=== PATIENT | female | born 1935 | race Caucasian/White ===

== ENCOUNTER 2016-08-04 19:27 | Inpatient (IN) ==
--- NOTE | 2016-08-04 19:48 | Emergency Department Note ---
Disposition Clinical Impression: Pneumonia Qualifiers: Pneumonia type: due to unspecified organism Laterality: bilateral Lung location : lower lobe of lung Qualified Code(s): J18.9 - Pneumonia, unspecified organism Disposition: Admitted As Inpatient Condition: Fair Referrals: Unassigned,Provider [Non-Partnered Physician] - Forms: ED Satisfaction Letter Time of Disposition: 21:30 General Adult HPI - General Chief complaint: ED GI Bleed Stated complaint: "GI BLEED" Time Seen by Provider: 08/04/16 19:34 Source: patient, other (intermediate) Mode of arrival: EMS Limitations: no limitations Nursing Notes Reviewed: Yes Vital Signs Reviewed: Yes - History of Present Illness HPI Narrative: 80-year-old who comes out from the long term with cough congestion. She states that they did chest x-ray that was clear but when I review the records it says there is a mild right lung base infiltrate. She's got cough congestion she's had fever she presents now for evaluation chills also has hemorrhoids and she has had some intermittent bleeding for most hemorrhoids that is not new. Pt Subjective Complaint: Cough congestion Onset (ago): Just [employer] SAL[employer] MA[employer] Location: chest - Related Data Home Medications Medication Instructions Recorded Confirmed Acetaminophen/Chlorpheniramine 1 tab PO Q6H PRN #0 05/01/15 03/16/16 [Coricidin Hbp Cold & Flu Tab] Amlodipine [Norvasc] 5 mg PO DAILY #0 05/01/15 03/16/16 Atorvastatin Calcium [Lipitor] 20 mg PO HS #0 05/01/15 03/16/16 Carvedilol [Coreg] 6.25 mg PO BIDWM #0 05/01/15 03/16/16 Fluticasone/Salmeterol [Advair 1 puff IH BID #0 05/01/15 03/16/16 500-50 Diskus] Insulin Glargine [Lantus] 10 unit SQ HS 05/01/15 03/16/16 Ipratropium/Albuterol Neb [Duoneb] 3 ml IH Q6HR PRN #0 05/01/15 03/16/16 Loperamide [Imodium] 2 mg PO Q4HR PRN #0 05/01/15 03/16/16 Montelukast [Singulair] 10 mg PO HS #0 05/01/15 03/16/16 Multivit/Ca/Min/Fe/FA [Thera M 1 tab PO DAILY #0 05/01/15 03/16/16 Plus] Oxybutynin Chloride [Ditropan Xl] 15 mg PO DAILY #0 05/01/15 03/16/16 Promethazine [Phenergan] 25 mg PO Q6HR PRN #0 05/01/15 03/16/16 Ranitidine HCl [Heartburn Relief] 150 mg PO BID #0 05/01/15 03/16/16 Roflumilast [Daliresp] 500 mcg PO DAILY #0 05/01/15 03/16/16 Sennosides [Senna] 8.6 mg PO DAILY #0 05/01/15 03/16/16 Tiotropium [Spiriva] 18 mcg IH DAILY #0 05/01/15 03/16/16 Vitamin E 400 unit PO DAILY #0 05/01/15 03/16/16 Rivaroxaban [Xarelto] 20 mg PO DAILY 07/27/15 03/16/16 Acetaminophen [Tylenol] 650 mg PO Q6H PRN 09/14/15 03/16/16 Albuterol Sulfate [Proair Hfa] 2 puff IH Q4H PRN 09/14/15 03/16/16 Bisacodyl [Dulcolax] 10 mg RC Q3D PRN 09/14/15 03/16/16 Fentanyl 75 mcg TP Q72H PRN 09/14/15 03/16/16 Loratadine [Claritin] 10 mg PO DAILY 09/14/15 03/16/16 Melatonin [Melatin] 3 mg PO HS 09/14/15 03/16/16 Polyethylene Glycol 3350 [MiraLAX] 17 gm PO DAILY 09/14/15 03/16/16 Cholecalciferol (D-3) [Vitamin D] 2,000 unit PO DAILY 03/16/16 03/16/16 Gabapentin [Neurontin] 600 mg PO TID 03/16/16 03/16/16 LORazepam [Ativan] 0.5 mg PO BID 03/16/16 03/16/16 Previous Rx's Medication Instructions Recorded Lamotrigine [Lamictal] 100 mg PO HS 30 Days 09/17/15 Omeprazole [PriLOSEC] 40 mg PO DAILY@0630 #30 capsule 09/17/15 Venlafaxine HCl 50 mg PO BID #30 tablet 09/17/15 OxyCODONE/APAP 5/325 [Percocet 1 each PO Q6HR PRN #15 tablet 03/21/16 5/325 MG] Albuterol Sulfate [Albuterol 2 puff IH Q4HR #1 hfa.aer.ad 04/18/16 Inhaler] Fluticasone Propionate Nasal 50 mcg NS Q6HR #1 bottle 04/18/16 [Flonase] Azithromycin [Azithromycin 6-Tab 250 mg PO PER PKG DI #6 tab 07/18/16 Pack] PredniSONE 60 mg PO DAILY 5 Days 07/18/16 Allergies Allergy/AdvReac Type Severity Reaction Status Date / Time ciprofloxacin [From Cipro] Allergy Hives Verified 04/18/16 09:25 codeine Allergy Hives Verified 04/18/16 09:25 diphenhydramine Allergy Rash Verified 04/18/16 09:25 [From Benadryl] levofloxacin [From Levaquin] Allergy Swelling Verified 04/18/16 09:25 of Lip/Tongue/Throat Sulfa (Sulfonamide Allergy Hives Verified 04/18/16 09:25 Antibiotics) All systems ED: reviewed and negative except as stated. Constitutional: Reports: chills. Denies: fever, weakness, weight change Eyes: Denies: eye pain, eye discharge, vision change ENT ED: Denies: ear pain, throat pain, dental pain, hearing loss, epistaxis, congestion, dysphagia Cardiovascular: Denies: chest pain, palpitations, dyspnea on exertion, edema, syncope Respiratory: Reports: cough, dyspnea. Denies: wheezes, hemoptysis, stridor Gastrointestinal: Denies: abdominal pain, nausea, vomiting, diarrhea, constipation, hematemesis, melena, hematochezia Genitourinary: Denies: dysuria, frequency, hematuria, discharge Musculoskeletal: Denies: back pain, neck pain, arthralgia, myalgia Integumentary: Denies: rash, abrasion, lesions Neurological: Denies: headache, weakness, numbness, paresthesias, confusion, abnormal gait, vertigo Psychiatric: Denies: anxiety, depression, suicidal thoughts, homicidal thoughts , auditory hallucinations, visual hallucinations Endocrine: Denies: fatigue Hematological/Lymphatic: Denies: easy bleeding, easy bruising Allergic/Immunologic: Denies: facial swelling, urticaria Past Medical History - Past Medical History Medical history: Reports: atrial fibrillation, COPD, CVA, DVT, diabetes, hypertension, pulmonary embolus, renal disease Surgical history: Reports: breast surgery, cholecystectomy, hysterectomy, orthopedic, other, other Psychiatric history: Reports: anxiety - Social History Smoking Status: Former smoker Smokeless Tobacco Status: No Alcohol use: Reports: none Drug use: Reports: none Physical Exam - General Limitations: no limitations General appearance: alert, in no apparent distress - Head Head exam: atraumatic, normocephalic, normal inspection - Eye Eye exam: Present: normal appearance, PERRL, EOMI - ENT ENT exam: normal exam, normal oropharynx, mucous membranes moist - Neck Neck exam: Present: normal inspection, full ROM, trachea midline - Chest Chest inspection: Present: normal inspection, symmetric chest wall rise - Respiratory Respiratory exam: Present: wheezes - Cardiovascular Cardiovascular exam: Present: regular rate, normal rhythm, normal heart sounds - Abdominal Exam Abdominal exam: Present: soft, Non-Tender. Absent: tenderness, distention, guarding, rebound, rigidity - Extremities Exam Extremities exam: Present: normal inspection, full ROM. Absent: tenderness, pedal edema - Expanded Lower Extremity Exam Neurovascular/Tendon exam: Absent: motor deficit, sensory deficit, tendon deficit Gait: not tested/not observed - Back Exam Back exam: Present: normal inspection, full ROM. Absent: tenderness - Neurological Exam Neurological exam: Present: alert, oriented X3 - Psychiatric Psychiatric exam: Present: normal affect, normal mood - Skin Skin exam: Present: warm, dry, intact, normal color Course - Reevaluation(s) Reevaluation #1: I did review a chest x-ray result from the long term is having mild right lung base infiltrate Time: 19:59 - Consultations Consultation #1: Discussed with , admit. Time: 21:29 Vital Signs Temperature 98.0 F 08/04/16 20:02 Pulse Rate 102 08/04/16 20:02 Respiratory Rate 20 08/04/16 20:02 Blood Pressure 128/61 08/04/16 20:02 O2 Sat by Pulse Oximetry 99 08/04/16 20:02 Temperature 98.0 F 08/04/16 20:02 Pulse Rate 102 08/04/16 20:02 Respiratory Rate 20 08/04/16 20:02 Blood Pressure 128/61 08/04/16 20:02 O2 Sat by Pulse Oximetry 97 08/04/16 20:15 Oxygen Delivery Oxygen Delivery Nasal Cannula Medical Decision Making - Lab Data Lab results reviewed: Yes I reviewed the patient's lab results. Result diagrams: 08/04/16 20:08 08/04/16 20:08 Lab Results 08/04/16 08/04/16 08/04/16 Range/Units 20:08 20:08 20:08 WBC 9.5 (4.3-11.1) K/mcL RBC 3.57 L (3.82-4.97) M/mcL Hgb 9.4 L (11.5-15.4) g/dL Hct 30.5 L (35.3-44.9) % MCV 85.4 (83.0-100.0) fL MCH 26.3 L (28.0-33.3) pg MCHC 30.8 L (31.6-35.5) g/dL RDW 14.0 (11.5-14.5) % Plt Count 219 (140-400) K/mcL MPV 8.3 L (9.4-12.4) fL Immature Gran % 0.2 (0-4) % Seg Neutrophils % 68.7 % Lymphocytes % 22.5 % Monocytes % 7.7 % Eosinophils % 0.7 % Basophils % 0.2 % Neutrophils # 6.5 (1.6-8.9) K/mcL Lymphocytes # 2.1 (0.6-4.6) K/mcL Monocytes # 0.7 (0.0-1.3) K/mcL Eosinophils # 0.1 (0.0-0.6) K/mcL Basophils # 0.0 (0.0-0.2) K/mcL PT 11.2 (9.4-12.1) Seconds INR 1.0 APTT 27.4 (26.0-36.0) Seconds Sodium 139 (136-145) mEq/L Potassium 4.0 (3.5-4.5) mEq/L Chloride 103 (98-109) mEq/L Carbon Dioxide 25 (19-29) mEq/L BUN 17 (7-20) mg/dL Creatinine 1.30 H (0.57-1.11) mg/dL Est GFR ( Amer) 48 L (> 60) Est GFR (Non-Af Amer) 40 L (> 60) BUN/Creatinine Ratio 13 (6-26) Glucose 149 H (70-99) mg/dL Calculated Osmolality 292 (280-300) Lactic Acid (0.5-2.2) mmol/L Calcium 9.0 (8.6-10.8) mg/dL Magnesium 1.8 (1.6-2.6) mg/dL Troponin I (0-0.03) ng/mL B-Natriuretic Peptide (0-100) pg/mL Lipase 4 L (8-78) Units/L Blood Type Antibody Screen 08/04/16 08/04/16 08/04/16 Range/Units 20:08 20:08 20:08 WBC (4.3-11.1) K/mcL RBC (3.82-4.97) M/mcL Hgb (11.5-15.4) g/dL Hct (35.3-44.9) % MCV (83.0-100.0) fL MCH (28.0-33.3) pg MCHC (31.6-35.5) g/dL RDW (11.5-14.5) % Plt Count (140-400) K/mcL MPV (9.4-12.4) fL Immature Gran % (0-4) % Seg Neutrophils % % Lymphocytes % % Monocytes % % Eosinophils % % Basophils % % Neutrophils # (1.6-8.9) K/mcL Lymphocytes # (0.6-4.6) K/mcL Monocytes # (0.0-1.3) K/mcL Eosinophils # (0.0-0.6) K/mcL Basophils # (0.0-0.2) K/mcL PT (9.4-12.1) Seconds INR APTT (26.0-36.0) Seconds Sodium (136-145) mEq/L Potassium (3.5-4.5) mEq/L Chloride (98-109) mEq/L Carbon Dioxide (19-29) mEq/L BUN (7-20) mg/dL Creatinine (0.57-1.11) mg/dL Est GFR ( Amer) (> 60) Est GFR (Non-Af Amer) (> 60) BUN/Creatinine Ratio (6-26) Glucose (70-99) mg/dL Calculated Osmolality (280-300) Lactic Acid 0.8 (0.5-2.2) mmol/L Calcium (8.6-10.8) mg/dL Magnesium (1.6-2.6) mg/dL Troponin I 0.02 (0-0.03) ng/mL B-Natriuretic Peptide (0-100) pg/mL Lipase (8-78) Units/L Blood Type A POSITIVE Antibody Screen NEGATIVE 08/04/16 Range/Units 20:08 WBC (4.3-11.1) K/mcL RBC (3.82-4.97) M/mcL Hgb (11.5-15.4) g/dL Hct (35.3-44.9) % MCV (83.0-100.0) fL MCH (28.0-33.3) pg MCHC (31.6-35.5) g/dL RDW (11.5-14.5) % Plt Count (140-400) K/mcL MPV (9.4-12.4) fL Immature Gran % (0-4) % Seg Neutrophils % % Lymphocytes % % Monocytes % % Eosinophils % % Basophils % % Neutrophils # (1.6-8.9) K/mcL Lymphocytes # (0.6-4.6) K/mcL Monocytes # (0.0-1.3) K/mcL Eosinophils # (0.0-0.6) K/mcL Basophils # (0.0-0.2) K/mcL PT (9.4-12.1) Seconds INR APTT (26.0-36.0) Seconds Sodium (136-145) mEq/L Potassium (3.5-4.5) mEq/L Chloride (98-109) mEq/L Carbon Dioxide (19-29) mEq/L BUN (7-20) mg/dL Creatinine (0.57-1.11) mg/dL Est GFR ( Amer) (> 60) Est GFR (Non-Af Amer) (> 60) BUN/Creatinine Ratio (6-26) Glucose (70-99) mg/dL Calculated Osmolality (280-300) Lactic Acid (0.5-2.2) mmol/L Calcium (8.6-10.8) mg/dL Magnesium (1.6-2.6) mg/dL Troponin I (0-0.03) ng/mL B-Natriuretic Peptide 81 (0-100) pg/mL Lipase (8-78) Units/L Blood Type Antibody Screen - Radiology Data Radiology results reviewed: Yes I reviewed the patient's radiology results. Chest X-Ray 08/04/16 19:42 IMPRESSION: Bibasilar infiltrates could represent atelectasis or pneumonia D/ / Pepe Gallegos MD / Pepe Gallegos MD Interpreting Provider: Pepe Gallegos MD - EKG Data EKG #1 EKG attestation: Yes I reviewed and interpreted this EKG. EKG shows normal: sinus rhythm Rate: tachycardia Rhythm: NSR Interpretation: no acute changes
[2016-08-04] MEDS ORDERED: Piperacillin/Tazobactam 3.375 GM in D5% in Water (Mini-Bag+) 100 ML IVPB ONE (20:00)
[2016-08-04 20:19] LABS: Basophils % 0.2 %; Eosinophils # 0.1 K/mcL (0.0-0.6); Eosinophils % 0.7 %; Hematocrit 30.5 % (35.3-44.9); Hemoglobin 9.4 g/dL (11.5-15.4); Immature Granulocytes % 0.2 % (0-4); Lymphocytes # 2.1 K/mcL (0.6-4.6); Lymphocytes % 22.5 %; Mean Corpuscular HGB Conc 30.8 g/dL (31.6-35.5); Mean Corpuscular Hemoglobin 26.3 pg (28.0-33.3); Mean Corpuscular Volume 85.4 fL (83.0-100.0); Mean Platelet Volume 8.3 fL (9.4-12.4); Monocytes # 0.7 K/mcL (0.0-1.3); Monocytes % 7.7 %; Neutrophils # 6.5 K/mcL (1.6-8.9); Platelet Count 219 K/mcL (140-400); Red Blood Count 3.57 M/mcL (3.82-4.97); Segmented Neutrophils % 68.7 %
[2016-08-04 20:25] LABS: Prothrombin Time 11.2 Seconds (9.4-12.1)
[2016-08-04 20:27] LABS: Activated Partial Thrombo Time 27.4 Seconds (26.0-36.0)
[2016-08-04 20:33] LABS: Magnesium 1.8 mg/dL (1.6-2.6)
[2016-08-04] MEDS ORDERED: Hydrocortisone Acetate 25 MG RECTAL SUPPOSITORY RC STA (20:59)
--- NOTE | 2016-08-04 23:02 | Internal Med History&Physical ---
Date of Encounter: 08/04/16 Time of Encounter: 23:00 Assessment and Plan (1) Pneumonia Current visit: Yes Status: Acute patient from half-way will start on zosyn Qualifiers: Pneumonia type: due to unspecified organism Laterality: bilateral Lung location: lower lobe of lung Qualified Code(s): J18.9 - Pneumonia, unspecified organism (2) COPD (chronic obstructive pulmonary disease) Current visit: Yes Status: Chronic with active wheezing exercebation due to penumonia start on solumedrol Qualifiers: COPD type: unspecified COPD Qualified Code(s): J44.9 - Chronic obstructive pulmonary disease, unspecified (3) HTN (hypertension) Current visit: No Status: Chronic chronic resume home meds Qualifiers: Hypertension type: essential hypertension Qualified Code(s): I10 - Essential (primary) hypertension (4) Anemia Current visit: No Status: Chronic chronic Qualifiers: Anemia type: unspecified type Qualified Code(s): D64.9 - Anemia, unspecified (5) DM (diabetes mellitus), type 2 with renal complications Current visit: No Status: Chronic chronic give iv hydration and monitor Qualifiers: Diabetes mellitus complication detail: with chronic kidney disease Diabetes mellitus ferry terminal agent insulin use: unspecified ferry terminal agent insulin use status Chronic kidney disease stage: stage 3 (moderate) Qualified Code(s): E11.22 - Type 2 diabetes mellitus with diabetic chronic kidney disease; N18.3 - Chronic kidney disease, stage 3 (moderate) (6) CKD (chronic kidney disease) stage 3, GFR 30-59 ml/min Current visit: No Status: Chronic (7) Diabetes Current visit: No Status: Chronic resume home meds and sliding scale Qualifiers: Diabetes mellitus type: type 2 Diabetes mellitus complication status: with kidney complications Diabetes mellitus complication detail: with chronic kidney disease Diabetes mellitus ferry terminal agent insulin use: with senior living use Chronic kidney disease stage: stage 3 (moderate) Qualified Code(s): E11.22 - Type 2 diabetes mellitus with diabetic chronic kidney disease; N18.3 - Chronic kidney disease, stage 3 (moderate); Z79.4 - intermodal truck driver (current) use of insulin (8) Obesity Current visit: No Status: Chronic chronic Qualifiers: Obesity type: due to excess calories Obesity severity: non-morbid Qualified Code(s): E66.09 - Other obesity due to excess calories Internal Medicine - H&P: HPI Chief complaint: sob and cough Admitted From: Emergency Dept Plans for Post Hospital Care: Transfer [facility] History of present illness: Ms. Jordan is a 80 year old female Patient with history of COPD, atrial fibrillation, CVA, DVT, diabetes, hypertension, history of pulmonary embolism, recurrent UTI patient was transferred from half-way to the emergency room due to increased cough congestion , fever ,chills , cough productive of thick greenish sputum also she has some intermittent bleeding from her hemorrhoid . denies any chest pain chest x-ray shows bilateral pneumonia exam patient has diffuse rhonchi and active wheezing Past Med Surg Social Fam HX - Past Medical History Medical history: atrial fibrillation, COPD, CVA, DVT, diabetes, hypertension, pulmonary embolus, renal disease Psychiatric history: anxiety - Past Surgical History Surgical History: breast surgery, cholecystectomy, hysterectomy, orthopedic, other, other - Social History Smoking Status: Former smoker Smokeless Tobacco Status: No Alcohol use: none Drug use: none - Family History Mother Living Status: Hx Family Cardiac Disorders: Yes (HTN, HLD) Hx Family Respiratory Disorders: Yes (emphysema) Father Living Status: Hx Family Cardiac Disorders: Yes Hx Family Respiratory Disorders: Yes Hx Family Cancer: No Internal Medicine - H&P: Meds Amlodipine [Norvasc] 5 mg PO DAILY #0 05/01/15 [History] Atorvastatin Calcium [Lipitor] 20 mg PO HS #0 05/01/15 [History] Carvedilol [Coreg] 6.25 mg PO BIDWM #0 05/01/15 [History] Fluticasone/Salmeterol [Advair 500-50 Diskus] 1 puff IH BID #0 05/01/15 [ History] Insulin Glargine [Lantus] 10 unit SQ HS 05/01/15 [History] Ipratropium/Albuterol Neb [Duoneb] 3 ml IH QID #0 05/01/15 [History] Loperamide [Imodium] 2 mg PO Q4HR PRN #0 05/01/15 [History] Montelukast [Singulair] 10 mg PO HS #0 05/01/15 [History] Multivit/Ca/Min/Fe/FA [Thera M Plus] 1 tab PO DAILY #0 05/01/15 [History] Oxybutynin Chloride [Ditropan Xl] 15 mg PO DAILY #0 05/01/15 [History] Ranitidine HCl [Heartburn Relief] 150 mg PO BID #0 05/01/15 [History] Roflumilast [Daliresp] 500 mcg PO DAILY #0 05/01/15 [History] Sennosides [Senna] 17.2 mg PO HS PRN #0 05/01/15 [History] Tiotropium [Spiriva] 18 mcg IH DAILY #0 05/01/15 [History] Vitamin E 400 unit PO DAILY #0 05/01/15 [History] Rivaroxaban [Xarelto] 20 mg PO DAILY 07/27/15 [History] Acetaminophen [Tylenol] 650 mg PO Q6H PRN 09/14/15 [History] Albuterol Sulfate [Proair Hfa] 2 puff IH Q4H PRN 09/14/15 [History] Bisacodyl [Dulcolax] 10 mg RC Q3D PRN 09/14/15 [History] Fentanyl 75 mcg TP Q72H 09/14/15 [History] Loratadine [Claritin] 10 mg PO DAILY 09/14/15 [History] Melatonin [Melatin] 3 mg PO HS PRN 09/14/15 [History] Polyethylene Glycol 3350 [MiraLAX] 17 gm PO DAILY 09/14/15 [History] Lamotrigine [Lamictal] 100 mg PO HS 30 Days 09/17/15 [Rx] Venlafaxine HCl 50 mg PO BID #30 tablet 09/17/15 [Rx] Cholecalciferol (D-3) [Vitamin D] 2,000 unit PO DAILY 03/16/16 [History] Gabapentin [Neurontin] 300 mg PO TID 03/16/16 [History] LORazepam [Ativan] 0.5 mg PO BID 03/16/16 [History] OxyCODONE/APAP 5/325 [Percocet 5/325 MG] 1 each PO Q6HR PRN #15 tablet 03/21/16 [Rx] Azelastine 0.1% Nasal [place] [Astelin] 2 spray NS BID 08/04/16 [History] Fluticasone Propionate Nasal [Flonase] 100 mcg NS DAILY 08/04/16 [History] Omeprazole [PriLOSEC] 40 mg PO DAILY 08/04/16 [History] Phenyleph/Pramoxin/Glycr/W.pet [Preparation H Cream] 1 appl RC QID PRN 08/04/16 [History] Saline Nasal [place] [[place] Nasal [place]] 1 spray NS TID 08/04/16 [History] Allergies ciprofloxacin [From Cipro] Allergy (Verified 04/18/16 09:25) Hives codeine Allergy (Verified 04/18/16 09:25) Hives diphenhydramine [From Benadryl] Allergy (Verified 04/18/16 09:25) Rash levofloxacin [From Levaquin] Allergy (Verified 04/18/16 09:25) Swelling of Lip/Tongue/Throat Sulfa (Sulfonamide Antibiotics) Allergy (Verified 04/18/16 09:25) Hives All Systems PM: A 10-system review of systems was performed and is negative for pertinent findings except as documented above in the HPI. - Constitutional Constitutional: chills, fatigue, fever(s) - EENT Eyes: no change in vision, no discharge, no pain, no photophobia Ears: no ear discharge, no ear pain, no tinnitus Nose, mouth and throat: no dysphagia, no nasal discharge, no neck pain, no sore throat - Cardiovascular Cardiovascular ROS IM: dyspnea, dyspnea on exertion - Respiratory Respiratory: cough, dyspnea on exertion, chest congestion - Gastrointestinal Gastrointestinal: no abdominal pain, no diarrhea, no hematemesis, no hematochezia, no melena, no nausea, no vomiting - Genitourinary Genitourinary: no change in urinary stream, no dysuria, no flank pain, no hematuria - Musculoskeletal Musculoskeletal ROS IM: no numbness, no tingling - Integumentary Integumentary IM: no rash, no unusual bruising - Neurological Neurological ROS: no confusion, no convulsions, no focal weakness, no numbness, no tingling, no tremor(s) - Hematologic/Lymphatic Hematologic/Lymphatic: no easy bruising - Constitutional Vitals: Temp Pulse Resp BP Pulse Ox 98.0 F 104 20 149/78 97 08/04/16 20:02 08/04/16 21:00 08/04/16 22:02 08/04/16 22:02 08/04/16 21:00 General appearance: Present: A&O X 3 - Eye Eye exam: Present: PERRL, conjuntiva pink, sclera anicteric Pupils: Present: PERRL - Respiratory Respiratory exam: Present: prolonged expiratory phase, rhonchi, wheezes - Cardiovascular Cardiovascular exam: Present: irregular rhythm, systolic murmur - GI/Abdominal GI/Abdominal exam: Present: normal bowel sounds, soft, no peritoneal signs. Absent: distended, tenderness - Extremities Exam Extremities exam: Present: warm, radial pulses palpable and symetrical. Absent : calf tenderness, cyanotic, pedal edema Internal Med - H&P Results - Labs CBC & Chem 7: 08/04/16 20:08 08/04/16 20:08
[2016-08-04] MEDS ORDERED: *HR* Morphine 2 MG/ML SYRINGE IVP PRN (23:10)
[2016-08-04] MEDS ORDERED: Mag Hydrox/Al Hydrox/Simeth 30 ML UDC PO PRN (23:10)
[2016-08-04] MEDS ORDERED: Naloxone 0.4 MG/ML INJ IVP PRN (23:10)
[2016-08-04] MEDS ORDERED: methylPREDNISolone 125 MG/2 ML VIAL IVP ONE (23:15)
[2016-08-04] MEDS ORDERED: Sennosides 8.6 MG TABLET PO PRN (23:16)
[2016-08-04] MEDS ORDERED: Bisacodyl 10 MG RECTAL SUPPOSITORY RC PRN (23:16)
[2016-08-04] MEDS ORDERED: Acetaminophen 325 MG TABLET PO PRN (23:16)
[2016-08-04] MEDS ORDERED: Ipratropium/Albuterol Neb 3 ML IH PRN (23:16)
[2016-08-04] MEDS ORDERED: *HR* Dextrose 50 % in Water (Syg) 50 ML SYRINGE IVP PRN (23:23)
[2016-08-04] MEDS ORDERED: Dextrose Gel 15 GM PO PRN ×2 (23:23)
[2016-08-04] MEDS ORDERED: D5% in Water 1,000 ML IVC PRN (23:23)
[2016-08-05] MEDS: 0.9 % Sodium Chloride 1,000 ML IVC SCH (01:19)
[2016-08-05] MEDS ORDERED: *HR* LORazepam 0.5 MG TABLET PO ONE (02:49)
[2016-08-05] MEDS: Ipratropium/Albuterol Neb 3 ML IH SCH ×7 (04:30→23:32)
[2016-08-05 04:37] LABS: Basophils % 0.2 %; Eosinophils % 0.2 %; Hemoglobin 9.4 g/dL (11.5-15.4); Immature Granulocytes % 0.4 % (0-4); Lymphocytes # 1.1 K/mcL (0.6-4.6); Lymphocytes % 8.5 %; Mean Corpuscular HGB Conc 31.3 g/dL (31.6-35.5); Mean Corpuscular Hemoglobin 26.9 pg (28.0-33.3); Mean Platelet Volume 9.1 fL (9.4-12.4); Monocytes # 0.2 K/mcL (0.0-1.3); Monocytes % 1.7 %; Platelet Count 209 K/mcL (140-400); Red Blood Count 3.49 M/mcL (3.82-4.97); Red Cell Distribution Width 14.1 % (11.5-14.5)
[2016-08-05 04:52] LABS: Albumin 2.9 g/dL (3.5-5.0); Albumin/Globulin Ratio 0.7 (1.1-2.2); Bilirubin,Total 0.7 mg/dL (0.2-1.2); Globulin 4.1 g/dL (2.4-3.5); Magnesium 1.9 mg/dL (1.6-2.6); Potassium 4.4 mEq/L (3.5-4.5)
[2016-08-05] MEDS: Piperacillin/Tazobactam 3.375 GM in D5% in Water (Mini-Bag+) 100 ML IVPB SCH ×3 (05:33→22:28)
[2016-08-05] MEDS ORDERED: *HR* Enoxaparin 40 MG/0.4 ML SYRINGE SQ SCH (06:00)
[2016-08-05] MEDS ORDERED: MethylPREDNISolone 40 MG/ML VIAL IVP SCH (08:00)
[2016-08-05] MEDS: Multivit/Ca/Min/Fe/FA 1 TAB TABLET PO SCH (08:39)
[2016-08-05] MEDS: Gabapentin 300 MG CAPSULE PO SCH ×2 (08:40→20:45)
[2016-08-05] MEDS: Cholecalciferol (D-3) 1,000 UNIT TABLET PO SCH (08:40)
[2016-08-05] MEDS: *HR* LORazepam 0.5 MG TABLET PO SCH ×2 (08:40→20:45)
[2016-08-05] MEDS: amLODIPine 5 MG TABLET PO SCH (08:40)
[2016-08-05] MEDS: Fluticasone Propionate Nasal 50 MCG/SPRAY BOTTLE NS SCH (08:41)
[2016-08-05] MEDS: Loratadine 10 MG TABLET PO SCH (08:42)
[2016-08-05] MEDS: Azelastine 0.1% Nasal Spray 30 ML BOTTLE NS SCH ×2 (08:42→22:26)
[2016-08-05] MEDS: Saline Nasal Spray 44 ML BOTTLE NS SCH ×3 (08:43→22:28)
[2016-08-05] MEDS: Insulin LISPRO 300 UNITS/3 ML VIAL SQ SCH ×4 (08:48→22:19)
[2016-08-05] MEDS ORDERED: Gabapentin 300 MG CAPSULE PO SCH (09:00)
[2016-08-05] MEDS ORDERED: *HR* Rivaroxaban 10 MG TABLET PO SCH (09:00)
--- NOTE | 2016-08-05 09:58 | Internal Med Progress Note ---
Date of Encounter: 08/05/16 Time of Encounter: 09:56 - Assessment and plan (1) Pneumonia Status: Acute Assessment and plan: Patient is brought in with respiratory distress and hypoxia, being treated for possible aspiration and healthcare associated pneumonia. Follow-up blood cultures, continue IV Zosyn. Continue supplemental oxygen, currently requiring 3 L/m via nasal cannula. Supportive care. Qualifiers: Pneumonia type: due to unspecified organism Laterality: bilateral Lung location: lower lobe of lung Qualified Code(s): J18.9 - Pneumonia, unspecified organism (2) Acute exacerbation of chronic obstructive pulmonary disease (COPD) Status: Acute Assessment and plan: Likely mild exacerbation of COPD. Continue bronchodilators and IV antibiotics as above. We will change steroids to oral prednisone and continue supplemental oxygen. (3) Atrial fibrillation Status: Chronic Assessment and plan: Currently rate controlled. Continue beta arnie and long-term anticoagulation with Xarelto. Qualifiers: Atrial fibrillation type: chronic Qualified Code(s): I48.2 - Chronic atrial fibrillation (4) History of DVT (deep vein thrombosis) Status: Chronic (5) HTN (hypertension) Status: Chronic Qualifiers: Hypertension type: essential hypertension Qualified Code(s): I10 - Essential (primary) hypertension (6) CKD (chronic kidney disease) stage 3, GFR 30-59 ml/min Status: Chronic Assessment and plan: Serum creatinine noted to be at baseline. Continue to monitor closely and dose medications according to current creatinine clearance. (7) Diabetes Status: Chronic Assessment and plan: Continue Accu-Chek blood glucose monitoring with basal bolus insulin regimen. Diabetic diet. Qualifiers: Diabetes mellitus type: type 2 Diabetes mellitus complication status: with kidney complications Diabetes mellitus complication detail: with chronic kidney disease Diabetes mellitus custodial insulin use: with long term care administrator use Chronic kidney disease stage: stage 3 (moderate) Qualified Code(s): E11.22 - Type 2 diabetes mellitus with diabetic chronic kidney disease; N18.3 - Chronic kidney disease, stage 3 (moderate); Z79.4 - residential (current) use of insulin (8) Anemia Status: Chronic Qualifiers: Anemia type: other cause Other causes of anemia: chronic disease, kidney Qualified Code(s): N18.9 - Chronic kidney disease, unspecified; D63.1 - Anemia in chronic kidney disease - Subjective Interval history: Feels short of breath. No chest pain, does have cough but unable to tell me the duration; patient answers a few questions but does ask repetitive questions like how long she will stay here; also asks if she would if she accidentally falls asleep? - Constitutional Vitals: Temp Pulse Resp BP Pulse Ox 97.4 F L 100 18 143/75 97 08/05/16 08:10 08/05/16 08:10 08/05/16 08:15 08/05/16 08:10 08/05/16 08:15 General appearance: Present: A&O X 2 - Respiratory Respiratory exam: Present: CTAB. Absent: accessory muscle use, rales, rhonchi, wheezes - Cardiovascular Cardiovascular exam: Present: RRR, +S1, +S2. Absent: diastolic murmur, gallop, rubs, systolic murmur - GI/Abdominal GI/Abdominal exam: Present: normal bowel sounds, soft, no peritoneal signs. Absent: distended, tenderness - Extremities Exam Extremities exam: Present: full ROM, warm, radial pulses palpable and symetrical. Absent: calf tenderness, cyanotic, pedal edema - Skin Skin exam: Present: dry, intact Internal Medicine: Result - Labs CBC & Chem 7: 08/07/16 06:11 08/07/16 06:11 Labs: Short CBC 08/05/16 Range/Units 04:09 WBC 12.4 H (4.3-11.1) K/mcL Hgb 9.4 L (11.5-15.4) g/dL Hct 30.0 L (35.3-44.9) % Plt Count 209 (140-400) K/mcL Neutrophils # 11.0 H (1.6-8.9) K/mcL BMP 08/05/16 04:09 Sodium 139 Potassium 4.4 Chloride 103 Carbon Dioxide 25 BUN 17 Creatinine 1.33 H Glucose 202 H Calcium 9.0 Liver Function 08/05/16 Range/Units 04:09 Total Bilirubin 0.7 (0.2-1.2) mg/dL AST 15 (5-34) Units/L ALT 13 (0-55) Units/L Alkaline Phosphatase 93 (38-126) Units/L Albumin 2.9 L (3.5-5.0) g/dL - ABG Interpretation ABG results: PT/INR, D-dimer PT 11.2 Seconds (9.4-12.1) 08/04/16 20:08 Consult Discharge Plan - Plan Additional Instructions: Follow-up with podiatry in 1-2 weeks Referrals: Melvin Maxwell DPM [Partnered Physician] - 08/22/16 1:00 pm (Please follow up as schedule....) Sandrine Mcknight CNP [Primary Care Provider] - 08/09/16 9:40 am Prescriptions: Amoxicillin/Clavulanate [Augmentin] 500 mg PO BIDWM #20 tablet PredniSONE 40 mg PO DAILY 7 Days
[2016-08-05] MEDS ORDERED: *HR* OxyCODONE/APAP 5/325 TABLET PO PRN (12:59)
[2016-08-05] MEDS ORDERED: Acetaminophen 325 MG TABLET PO PRN (13:00)
[2016-08-05] MEDS: *HR* Rivaroxaban 15 MG TABLET PO SCH (16:15)
--- NOTE | 2016-08-05 16:52 | Electrocardiograph Report ---
[place] [id number] Test Date: 2016-08-04 Pat Name: Chrissie Jordan Department: 105 Room: 2A23 Gender: F Crop Duster: VERONICA : 1935 Requested By: Beto Zhang Order Number: [id number] Reading MD: Tigist Thurman Measurements Intervals [place] Rate: 101 P: 71 MA: 151 QRS: -71 QRSD: 118 T: 46 QT: 355 QTc: 413 Interpretive Statements SINUS TACHYCARDIA WITH OCCASIONAL ECTOPIC PREMATURE COMPLEXES PATTERN CONSISTENT WITH PULMONARY DISEASE INCOMPLETE RIGHT BUNDLE BRANCH BLOCK [90+ ms QRS DURATION, TERMINAL R IN V1/V2, 40+ ms S IN I/aVL/V4/V5/V6] LEFT ANTERIOR FASCICULAR BLOCK [QRS AXIS <= -45, QR IN I, RS IN II] Electronically Signed On 08-05-2016 16:51:00 EDT by Tigist Thurman
[2016-08-05] MEDS: predniSONE 20 MG TABLET PO SCH (17:04)
[2016-08-05] MEDS: lamoTRIgine 100 MG TABLET PO SCH (20:44)
[2016-08-05] MEDS ORDERED: NON-FORMULARY MEDICATION 1 EACH EACH (Insulin Glargine [Lantus] 10 UNIT) SQ SCH (21:00)
[2016-08-05] MEDS ORDERED: Insulin DETEMIR 100 UNIT/ML X5UNITS SQ SCH (21:00)
[2016-08-06] MEDS: 0.9 % Sodium Chloride 1,000 ML IVC SCH ×2 (00:51→14:01)
[2016-08-06] MEDS: Melatonin 3 MG TABLET PO PRN ×2 (00:51→22:10)
[2016-08-06] MEDS: Ipratropium/Albuterol Neb 3 ML IH SCH ×6 (04:23→23:25)
[2016-08-06] MEDS: Piperacillin/Tazobactam 3.375 GM in D5% in Water (Mini-Bag+) 100 ML IVPB SCH ×3 (05:29→21:06)
[2016-08-06 06:55] LABS: Calcium 9.2 mg/dL (8.6-10.8); Potassium 4.2 mEq/L (3.5-4.5)
[2016-08-06 06:57] LABS: Basophils % 0.1 %; Hematocrit 29.9 % (35.3-44.9); Hemoglobin 9.7 g/dL (11.5-15.4); Immature Granulocytes % 0.8 % (0-4); Lymphocytes # 1.3 K/mcL (0.6-4.6); Lymphocytes % 8.8 %; Mean Corpuscular HGB Conc 32.4 g/dL (31.6-35.5); Mean Corpuscular Hemoglobin 27.4 pg (28.0-33.3); Mean Corpuscular Volume 84.5 fL (83.0-100.0); Mean Platelet Volume 9.1 fL (9.4-12.4); Monocytes # 0.7 K/mcL (0.0-1.3); Monocytes % 4.4 %; Neutrophils # 12.8 K/mcL (1.6-8.9); Platelet Count 233 K/mcL (140-400); Red Blood Count 3.54 M/mcL (3.82-4.97); Red Cell Distribution Width 13.8 % (11.5-14.5); Segmented Neutrophils % 85.9 %
[2016-08-06] MEDS: Cholecalciferol (D-3) 1,000 UNIT TABLET PO SCH (08:20)
[2016-08-06] MEDS: amLODIPine 5 MG TABLET PO SCH (08:20)
[2016-08-06] MEDS: Loratadine 10 MG TABLET PO SCH (08:21)
[2016-08-06] MEDS: Gabapentin 300 MG CAPSULE PO SCH ×2 (08:21→21:04)
[2016-08-06] MEDS: predniSONE 20 MG TABLET PO SCH (08:21)
[2016-08-06] MEDS: Multivit/Ca/Min/Fe/FA 1 TAB TABLET PO SCH (08:21)
[2016-08-06] MEDS: *HR* LORazepam 0.5 MG TABLET PO SCH ×2 (08:21→21:02)
[2016-08-06] MEDS: Insulin LISPRO 300 UNITS/3 ML VIAL SQ SCH ×4 (08:22→22:14)
[2016-08-06] MEDS: Azelastine 0.1% Nasal Spray 30 ML BOTTLE NS SCH ×2 (08:29→21:04)
[2016-08-06] MEDS: Saline Nasal Spray 44 ML BOTTLE NS SCH ×4 (08:29→22:42)
[2016-08-06] MEDS: Fluticasone Propionate Nasal 50 MCG/SPRAY BOTTLE NS SCH (08:29)
[2016-08-06] MEDS: *HR* Rivaroxaban 15 MG TABLET PO SCH (15:55)
[2016-08-06] MEDS: lamoTRIgine 100 MG TABLET PO SCH (20:59)
[2016-08-06] MEDS: Insulin DETEMIR 100 UNIT/ML X5UNITS SQ SCH (21:04)
[2016-08-07] MEDS: Ipratropium/Albuterol Neb 3 ML IH SCH ×2 (03:53→07:33)
[2016-08-07] MEDS: Piperacillin/Tazobactam 3.375 GM in D5% in Water (Mini-Bag+) 100 ML IVPB SCH ×3 (05:35→22:49)
[2016-08-07 07:32] LABS: Basophils % 0.1 %; Eosinophils # 0.1 K/mcL (0.0-0.6); Eosinophils % 0.5 %; Hemoglobin 8.8 g/dL (11.5-15.4); Immature Granulocytes % 0.5 % (0-4); Lymphocytes # 3.1 K/mcL (0.6-4.6); Lymphocytes % 28.1 %; Mean Corpuscular HGB Conc 31.4 g/dL (31.6-35.5); Mean Corpuscular Hemoglobin 27.2 pg (28.0-33.3); Mean Corpuscular Volume 86.4 fL (83.0-100.0); Mean Platelet Volume 9.1 fL (9.4-12.4); Monocytes # 0.9 K/mcL (0.0-1.3); Monocytes % 8.4 %; Neutrophils # 6.9 K/mcL (1.6-8.9); Platelet Count 223 K/mcL (140-400); Red Blood Count 3.24 M/mcL (3.82-4.97); Red Cell Distribution Width 14.3 % (11.5-14.5); Segmented Neutrophils % 62.4 %
[2016-08-07 07:35] LABS: Calcium 8.9 mg/dL (8.6-10.8); Potassium 3.6 mEq/L (3.5-4.5)
[2016-08-07] MEDS: Cholecalciferol (D-3) 1,000 UNIT TABLET PO SCH (08:59)
[2016-08-07] MEDS: Insulin LISPRO 300 UNITS/3 ML VIAL SQ SCH ×4 (08:59→23:34)
[2016-08-07] MEDS: Loratadine 10 MG TABLET PO SCH (08:59)
[2016-08-07] MEDS: Multivit/Ca/Min/Fe/FA 1 TAB TABLET PO SCH (08:59)
[2016-08-07] MEDS: predniSONE 20 MG TABLET PO SCH (09:00)
[2016-08-07] MEDS: amLODIPine 5 MG TABLET PO SCH (09:00)
[2016-08-07] MEDS: *HR* LORazepam 0.5 MG TABLET PO SCH ×2 (09:00→22:48)
[2016-08-07] MEDS ORDERED: *HR* FentaNYL PATCH 75 MCG PATCH TD SCH (09:00)
[2016-08-07] MEDS: Gabapentin 300 MG CAPSULE PO SCH ×2 (09:00→22:47)
[2016-08-07] MEDS: Fluticasone Propionate Nasal 50 MCG/SPRAY BOTTLE NS SCH (09:02)
[2016-08-07] MEDS: Azelastine 0.1% Nasal Spray 30 ML BOTTLE NS SCH ×2 (09:02→22:49)
[2016-08-07] MEDS: Saline Nasal Spray 44 ML BOTTLE NS SCH ×3 (09:03→23:06)
[2016-08-07] MEDS: Insulin DETEMIR 100 UNIT/ML X5UNITS SQ SCH ×2 (09:08→22:48)
--- NOTE | 2016-08-07 11:08 | Internal Med Progress Note ---
Date of Encounter: 08/07/16 Time of Encounter: 11:06 - Assessment and plan (1) Acute exacerbation of chronic obstructive pulmonary disease (COPD) Status: Acute Assessment and plan: Likely mild exacerbation of COPD. Continue bronchodilators and IV antibiotics as above. Continue oral prednisone and continue supplemental oxygen. (2) History of DVT (deep vein thrombosis) Status: Chronic (3) HTN (hypertension) Status: Chronic Qualifiers: Hypertension type: essential hypertension Qualified Code(s): I10 - Essential (primary) hypertension (4) DM (diabetes mellitus), type 2 with renal complications Status: Chronic Assessment and plan: blood sugars noted to be better controlled today; continue Accucheck blood glucose monitoring with basal bolus insulin regimen; diabetic diet; Qualifiers: Diabetes mellitus complication detail: with chronic kidney disease Diabetes mellitus jail insulin use: unspecified rat exterminator insulin use status Chronic kidney disease stage: stage 3 (moderate) Qualified Code(s): E11.22 - Type 2 diabetes mellitus with diabetic chronic kidney disease; N18.3 - Chronic kidney disease, stage 3 (moderate) (5) CKD (chronic kidney disease) stage 3, GFR 30-59 ml/min Status: Chronic Assessment and plan: Serum creatinine noted to be at baseline. Continue to monitor closely and dose medications according to current creatinine clearance. (6) Anemia Status: Chronic Qualifiers: Anemia type: other cause Other causes of anemia: chronic disease, kidney Qualified Code(s): N18.9 - Chronic kidney disease, unspecified; D63.1 - Anemia in chronic kidney disease (7) Pneumonia Status: Acute Assessment and plan: continue IV antibiotics; improving O2 requirements and leukocytosis; discharge planning on Monday, tomorrow; Qualifiers: Pneumonia type: due to unspecified organism Laterality: bilateral Lung location: lower lobe of lung Qualified Code(s): J18.9 - Pneumonia, unspecified organism - Subjective Interval history: Feels better today. No cough or shortness of breath. Improving oxygen requirements. - Constitutional Vitals: Temp Pulse Resp BP Pulse Ox 98.2 F 87 14 134/73 100 08/07/16 07:38 08/07/16 07:38 08/07/16 07:38 08/07/16 07:38 08/07/16 08:30 General appearance: Present: A&O X 2 - Respiratory Respiratory exam: Present: decreased breath sounds (At bilateral bases). Absent : accessory muscle use, rales, rhonchi, wheezes - Cardiovascular Cardiovascular exam: Present: RRR, +S1, +S2. Absent: diastolic murmur, gallop, rubs, systolic murmur - GI/Abdominal GI/Abdominal exam: Present: normal bowel sounds, soft, no peritoneal signs. Absent: distended, tenderness - Extremities Exam Extremities exam: Present: full ROM, warm, radial pulses palpable and symetrical. Absent: calf tenderness, cyanotic, pedal edema Internal Medicine: Result - Labs CBC & Chem 7: 08/07/16 06:11 08/07/16 06:11 Labs: Short CBC 08/07/16 Range/Units 06:11 WBC 11.0 (4.3-11.1) K/mcL Hgb 8.8 L (11.5-15.4) g/dL Hct 28.0 L (35.3-44.9) % Plt Count 223 (140-400) K/mcL Neutrophils # 6.9 (1.6-8.9) K/mcL BMP 08/07/16 06:11 Sodium 142 Potassium 3.6 Chloride 106 Carbon Dioxide 24 BUN 18 Creatinine 1.28 H Glucose 109 H Calcium 8.9 - ABG Interpretation ABG results: PT/INR, D-dimer PT 11.2 Seconds (9.4-12.1) 08/04/16 20:08 Consult Discharge Plan - Plan Additional Instructions: Follow-up with podiatry in 1-2 weeks Referrals: Melvin Maxwell DPM [Partnered Physician] - 08/22/16 1:00 pm (Please follow up as schedule....) Sandrine Mcknight CNP [Primary Care Provider] - 08/09/16 9:40 am Prescriptions: Amoxicillin/Clavulanate [Augmentin] 500 mg PO BIDWM #20 tablet PredniSONE 40 mg PO DAILY 7 Days
[2016-08-07] MEDS: *HR* Rivaroxaban 15 MG TABLET PO SCH (17:28)
[2016-08-07] MEDS: Melatonin 3 MG TABLET PO PRN (22:47)
[2016-08-07] MEDS: lamoTRIgine 100 MG TABLET PO SCH (22:48)
[2016-08-08] MEDS: Piperacillin/Tazobactam 3.375 GM in D5% in Water (Mini-Bag+) 100 ML IVPB SCH (06:09)
[2016-08-08] MEDS: Cholecalciferol (D-3) 1,000 UNIT TABLET PO SCH (08:58)
[2016-08-08] MEDS: predniSONE 20 MG TABLET PO SCH (08:58)
[2016-08-08] MEDS: Gabapentin 300 MG CAPSULE PO SCH (08:59)
[2016-08-08] MEDS: Insulin LISPRO 300 UNITS/3 ML VIAL SQ SCH ×2 (09:01→11:58)
[2016-08-08] MEDS: Loratadine 10 MG TABLET PO SCH (09:02)
[2016-08-08] MEDS: Multivit/Ca/Min/Fe/FA 1 TAB TABLET PO SCH (09:02)
[2016-08-08] MEDS: amLODIPine 5 MG TABLET PO SCH (09:02)
[2016-08-08] MEDS: Insulin DETEMIR 100 UNIT/ML X5UNITS SQ SCH (09:02)
[2016-08-08] MEDS: Fluticasone Propionate Nasal 50 MCG/SPRAY BOTTLE NS SCH (09:03)
[2016-08-08] MEDS: *HR* LORazepam 0.5 MG TABLET PO SCH (09:03)
[2016-08-08] MEDS: Saline Nasal Spray 44 ML BOTTLE NS SCH (09:04)
[2016-08-08] MEDS: Azelastine 0.1% Nasal Spray 30 ML BOTTLE NS SCH (09:04)
--- NOTE | 2016-08-08 11:39 | Discharge Summary ---
Date of Encounter: 08/08/16 Time of Encounter: 11:30 - Discharge Diagnosis (1) Pneumonia Priority: Primary Status: Acute Qualifiers: Pneumonia type: due to unspecified organism Laterality: bilateral Lung location: lower lobe of lung Qualified Code(s): J18.9 - Pneumonia, unspecified organism (2) Acute exacerbation of chronic obstructive pulmonary disease (COPD) Priority: Primary Status: Acute (3) History of DVT (deep vein thrombosis) Priority: Secondary Status: Chronic (4) HTN (hypertension) Priority: Secondary Status: Chronic Qualifiers: Hypertension type: essential hypertension Qualified Code(s): I10 - Essential (primary) hypertension (5) DM (diabetes mellitus), type 2 with renal complications Priority: Secondary Status: Chronic Qualifiers: Diabetes mellitus complication detail: with chronic kidney disease Diabetes mellitus detention insulin use: unspecified detention insulin use status Chronic kidney disease stage: stage 3 (moderate) Qualified Code(s): E11.22 - Type 2 diabetes mellitus with diabetic chronic kidney disease; N18.3 - Chronic kidney disease, stage 3 (moderate) (6) CKD (chronic kidney disease) stage 3, GFR 30-59 ml/min Priority: Secondary Status: Chronic (7) Anemia Priority: Secondary Status: Chronic Qualifiers: Anemia type: other cause Other causes of anemia: chronic disease, kidney Qualified Code(s): N18.9 - Chronic kidney disease, unspecified; D63.1 - Anemia in chronic kidney disease - Discharge Medications Prescriptions: Amoxicillin/Clavulanate [Augmentin] 500 mg PO BIDWM #20 tablet PredniSONE 40 mg PO DAILY 7 Days Home Medications: Amlodipine [Norvasc] 5 mg PO DAILY #0 05/01/15 [History] Atorvastatin Calcium [Lipitor] 20 mg PO HS #0 05/01/15 [History] Carvedilol [Coreg] 6.25 mg PO BIDWM #0 05/01/15 [History] Fluticasone/Salmeterol [Advair 500-50 Diskus] 1 puff IH BID #0 05/01/15 [ History] Ipratropium/Albuterol Neb [Duoneb] 3 ml IH QID #0 05/01/15 [History] Loperamide [Imodium] 2 mg PO Q4HR PRN #0 05/01/15 [History] Montelukast [Singulair] 10 mg PO HS #0 05/01/15 [History] Multivit/Ca/Min/Fe/FA [Thera M Plus] 1 tab PO DAILY #0 05/01/15 [History] Oxybutynin Chloride [Ditropan Xl] 15 mg PO DAILY #0 05/01/15 [History] Ranitidine HCl [Heartburn Relief] 150 mg PO BID #0 05/01/15 [History] Roflumilast [Daliresp] 500 mcg PO DAILY #0 05/01/15 [History] Sennosides [Senna] 17.2 mg PO HS PRN #0 05/01/15 [History] Tiotropium [Spiriva] 18 mcg IH DAILY #0 05/01/15 [History] Vitamin E 400 unit PO DAILY #0 05/01/15 [History] Acetaminophen [Tylenol] 650 mg PO Q6H PRN 09/14/15 [History] Albuterol Sulfate [Proair Hfa] 2 puff IH Q4H PRN 09/14/15 [History] Bisacodyl [Dulcolax] 10 mg RC Q3D PRN 09/14/15 [History] Fentanyl 75 mcg TP Q72H 09/14/15 [History] Loratadine [Claritin] 10 mg PO DAILY 09/14/15 [History] Melatonin [Melatin] 3 mg PO HS PRN 09/14/15 [History] Polyethylene Glycol 3350 [MiraLAX] 17 gm PO DAILY 09/14/15 [History] Lamotrigine [Lamictal] 100 mg PO HS 30 Days 09/17/15 [Rx] Venlafaxine HCl 50 mg PO BID #30 tablet 09/17/15 [Rx] Cholecalciferol (D-3) [Vitamin D] 2,000 unit PO DAILY 03/16/16 [History] Gabapentin [Neurontin] 300 mg PO TID 03/16/16 [History] LORazepam [Ativan] 0.5 mg PO BID 03/16/16 [History] Azelastine 0.1% Nasal [place] [Astelin] 2 spray NS BID 08/04/16 [History] Fluticasone Propionate Nasal [Flonase] 100 mcg NS DAILY 08/04/16 [History] Omeprazole [PriLOSEC] 40 mg PO DAILY 08/04/16 [History] Phenyleph/Pramoxin/Glycr/W.pet [Preparation H Cream] 1 appl RC QID PRN 08/04/16 [History] Saline Nasal [place] [[place] Nasal [place]] 1 spray NS TID 08/04/16 [History] Amoxicillin/Clavulanate [Augmentin] 500 mg PO BIDWM #20 tablet 08/08/16 [Rx] Insulin Glargine [Lantus] 15 unit SQ HS #0 08/08/16 [Rx] OxyCODONE/APAP 5/325 [Percocet 5/325 MG] 1 each PO Q6HR PRN #20 tablet 08/08/16 [Rx] PredniSONE 40 mg PO DAILY 7 Days 08/08/16 [Rx] Rivaroxaban [Xarelto] 15 mg PO DAILY #0 08/08/16 [Rx] Allergies/Adverse Reactions: Allergies ciprofloxacin [From Cipro] Allergy (Verified 04/18/16 09:25) Hives codeine Allergy (Verified 04/18/16 09:25) Hives diphenhydramine [From Benadryl] Allergy (Verified 04/18/16 09:25) Rash levofloxacin [From Levaquin] Allergy (Verified 04/18/16 09:25) Swelling of Lip/Tongue/Throat Sulfa (Sulfonamide Antibiotics) Allergy (Verified 04/18/16 09:25) Hives Date of admission: 08/05/16 02:58 Primary care physician: Sandrine Mcknight CNP Consults: 08/06/16 15:34 Consult to Consulting Application Engineer [CONS] Routine Reason for SW Consult: Pt does mnot want to return to [place]. Discharging clinician: Maryann Butterfield Anticipated date of discharge: 08/08/16 - Patient Status Disposition: Transfer SNF Condition: Fair Functional capacity at discharge: bed bound Overall status at discharge: patient is progressing back to baseline - Discharge Instructions Follow Up With: Melvin Maxwell DPM [Partnered Physician] - 08/22/16 1:00 pm (Please follow up as schedule....) Sandrine Mcknight CNP [Primary Care Provider] - 08/09/16 9:40 am Additional Instructions: Follow-up with podiatry in 1-2 weeks - Diet and Activity Activity: as per physical therapy, wear oxygen at all times Diet: diabetic diet, low fat, low cholesterol, low salt diet, other (renal ) Hospital course: Ms. Jordan is a 80 year old female with the above medical problems, admitted with cough and dyspnea. SHe was noted to have pneumonia along with mild acute exacerbation of COPD. SHe was treated with iV hydration, antibiotics and steroids and improved significantly. Blood cultures remained negative. Patient is noted to have underlying dementia and mood disorder, occasionally refusing to go back to her [facility] but is otherwise medically stable today and is agreeable to discharge plan. - Time Spent with Patient Total time spent providing and/or coordinating discharge services: Greater than 30 minutes (50 min) - Constitutional Vitals: Temp Pulse Resp BP Pulse Ox 97.8 F 80 18 135/68 95 08/08/16 07:46 08/08/16 07:46 08/08/16 07:46 08/08/16 07:46 08/08/16 08:48 General appearance: Present: A&O X 2 - Respiratory Respiratory exam: Present: CTAB. Absent: accessory muscle use, rales, rhonchi, wheezes - Cardiovascular Cardiovascular exam: Present: RRR, +S1, +S2. Absent: diastolic murmur, gallop, rubs, systolic murmur
--- NOTE | 2016-08-08 11:51 | Physician Discharge Referral ---
ExtendedCare Referral Info Transfer To: [facility] Provider in Charge: Maryann Butterfield Provider in Charge after Transfer: PCP Institutional Level of Care: Skilled - Diagnosis (1) Pneumonia Priority: Primary Status: Acute (2) Acute exacerbation of chronic obstructive pulmonary disease (COPD) Priority: Primary Status: Acute (3) History of DVT (deep vein thrombosis) Priority: Secondary Status: Chronic (4) HTN (hypertension) Priority: Secondary Status: Chronic (5) DM (diabetes mellitus), type 2 with renal complications Priority: Secondary Status: Chronic (6) CKD (chronic kidney disease) stage 3, GFR 30-59 ml/min Priority: Secondary Status: Chronic (7) Anemia Priority: Secondary Status: Chronic Expected Duration of Placement: 3 weeks Prognosis: Fair Aware of Diagnosis: Patient - Transfer Medications Prescriptions: Amoxicillin/Clavulanate [Augmentin] 500 mg PO BIDWM #20 tablet PredniSONE 40 mg PO DAILY 7 Days Home Medications: Amlodipine [Norvasc] 5 mg PO DAILY #0 05/01/15 [History] Atorvastatin Calcium [Lipitor] 20 mg PO HS #0 05/01/15 [History] Carvedilol [Coreg] 6.25 mg PO BIDWM #0 05/01/15 [History] Fluticasone/Salmeterol [Advair 500-50 Diskus] 1 puff IH BID #0 05/01/15 [ History] Ipratropium/Albuterol Neb [Duoneb] 3 ml IH QID #0 05/01/15 [History] Loperamide [Imodium] 2 mg PO Q4HR PRN #0 05/01/15 [History] Montelukast [Singulair] 10 mg PO HS #0 05/01/15 [History] Multivit/Ca/Min/Fe/FA [Thera M Plus] 1 tab PO DAILY #0 05/01/15 [History] Oxybutynin Chloride [Ditropan Xl] 15 mg PO DAILY #0 05/01/15 [History] Ranitidine HCl [Heartburn Relief] 150 mg PO BID #0 05/01/15 [History] Roflumilast [Daliresp] 500 mcg PO DAILY #0 05/01/15 [History] Sennosides [Senna] 17.2 mg PO HS PRN #0 05/01/15 [History] Tiotropium [Spiriva] 18 mcg IH DAILY #0 05/01/15 [History] Vitamin E 400 unit PO DAILY #0 05/01/15 [History] Acetaminophen [Tylenol] 650 mg PO Q6H PRN 09/14/15 [History] Albuterol Sulfate [Proair Hfa] 2 puff IH Q4H PRN 09/14/15 [History] Bisacodyl [Dulcolax] 10 mg RC Q3D PRN 09/14/15 [History] Fentanyl 75 mcg TP Q72H 09/14/15 [History] Loratadine [Claritin] 10 mg PO DAILY 09/14/15 [History] Melatonin [Melatin] 3 mg PO HS PRN 09/14/15 [History] Polyethylene Glycol 3350 [MiraLAX] 17 gm PO DAILY 09/14/15 [History] Lamotrigine [Lamictal] 100 mg PO HS 30 Days 09/17/15 [Rx] Venlafaxine HCl 50 mg PO BID #30 tablet 09/17/15 [Rx] Cholecalciferol (D-3) [Vitamin D] 2,000 unit PO DAILY 03/16/16 [History] Gabapentin [Neurontin] 300 mg PO TID 03/16/16 [History] LORazepam [Ativan] 0.5 mg PO BID 03/16/16 [History] Azelastine 0.1% Nasal [place] [Astelin] 2 spray NS BID 08/04/16 [History] Fluticasone Propionate Nasal [Flonase] 100 mcg NS DAILY 08/04/16 [History] Omeprazole [PriLOSEC] 40 mg PO DAILY 08/04/16 [History] Phenyleph/Pramoxin/Glycr/W.pet [Preparation H Cream] 1 appl RC QID PRN 08/04/16 [History] Saline Nasal [place] [[place] Nasal [place]] 1 spray NS TID 08/04/16 [History] Amoxicillin/Clavulanate [Augmentin] 500 mg PO BIDWM #20 tablet 08/08/16 [Rx] Insulin Glargine [Lantus] 15 unit SQ HS #0 08/08/16 [Rx] OxyCODONE/APAP 5/325 [Percocet 5/325 MG] 1 each PO Q6HR PRN #20 tablet 08/08/16 [Rx] PredniSONE 40 mg PO DAILY 7 Days 08/08/16 [Rx] Rivaroxaban [Xarelto] 15 mg PO DAILY #0 08/08/16 [Rx] Allergies/Adverse Reactions: Allergies ciprofloxacin [From Cipro] Allergy (Verified 04/18/16 09:25) Hives codeine Allergy (Verified 04/18/16 09:25) Hives diphenhydramine [From Benadryl] Allergy (Verified 04/18/16 09:25) Rash levofloxacin [From Levaquin] Allergy (Verified 04/18/16 09:25) Swelling of Lip/Tongue/Throat Sulfa (Sulfonamide Antibiotics) Allergy (Verified 04/18/16 09:25) Hives - Respiratory Orders Oxygen / L per min (2-3 L/min via NC) Smoking Cessation: Smoking cessation has been advised. For more information, call the [place] Tobacco Quit Line at 1-206-XKOR-NOW. - Advance Directives Code Status: Full Code - Mobility Orders Ambulate - Rehabiliation Orders Rehab Potential: Fair Rehab Orders: ROM Exercises, Evaluation for Physical Therapy, Evaluation for Occupational Therapy - Diet Orders No Concentrated Sweets (diabetic), Renal, Cardiac CERTIFICATION: I certify that the transfer of the above named patient to an Extended Care Facility is necessary for the continuing treatment of the diagnosis listed. The above information is true and accurate reflection of patient's current condition. Confidential - Redisclosure prohibited without a patient's written consent.
[2016-08-09 10:31] VITALS: BP 137/69
--- NOTE | 2016-08-11 11:29 | Internal Med Progress Note ---
Date of Encounter: 08/06/16 Time of Encounter: 12:00 - Assessment and plan (1) Pneumonia Status: Acute Assessment and plan: Patient is brought in with respiratory distress and hypoxia, being treated for possible aspiration and healthcare associated pneumonia. Blood cultures so far negative, continue IV Zosyn. Continue supplemental oxygen, currently requiring 3 L/m via nasal cannula. Supportive care. Qualifiers: Pneumonia type: due to unspecified organism Laterality: bilateral Lung location: lower lobe of lung Qualified Code(s): J18.9 - Pneumonia, unspecified organism (2) Acute exacerbation of chronic obstructive pulmonary disease (COPD) Status: Acute Assessment and plan: Likely mild exacerbation of COPD. Continue bronchodilators and IV antibiotics as above. Continue oral prednisone and continue supplemental oxygen. (3) Atrial fibrillation Status: Chronic Assessment and plan: Currently rate controlled. Continue beta arnie and long-term anticoagulation with Xarelto. Qualifiers: Atrial fibrillation type: chronic Qualified Code(s): I48.2 - Chronic atrial fibrillation (4) History of DVT (deep vein thrombosis) Status: Chronic (5) HTN (hypertension) Status: Chronic Qualifiers: Hypertension type: essential hypertension Qualified Code(s): I10 - Essential (primary) hypertension (6) CKD (chronic kidney disease) stage 3, GFR 30-59 ml/min Status: Chronic (7) Diabetes Status: Chronic Assessment and plan: blood sugars noted to be elevated; will increase basal insulin dose; continue Accucheck blood glucose monitoring and basal bolus insulin regimen; diabetic diet; Qualifiers: Diabetes mellitus type: type 2 Diabetes mellitus complication status: with kidney complications Diabetes mellitus complication detail: with chronic kidney disease Diabetes mellitus residential insulin use: with superintendent terminal use Chronic kidney disease stage: stage 3 (moderate) Qualified Code(s): E11.22 - Type 2 diabetes mellitus with diabetic chronic kidney disease; N18.3 - Chronic kidney disease, stage 3 (moderate); Z79.4 - terminal system operator (current) use of insulin (8) Anemia Status: Chronic Qualifiers: Anemia type: other cause Other causes of anemia: chronic disease, kidney Qualified Code(s): N18.9 - Chronic kidney disease, unspecified; D63.1 - Anemia in chronic kidney disease - Subjective Interval history: Improved shortness of breath but reports congestion and post-nasal drip? also claims she is diaphoretic and wants to see a Psychiatrist to find out whats' wrong with her; no documented fever; - Constitutional Vitals: Temp Pulse Resp BP Pulse Ox 98.5 F 87 16 137/69 96 08/08/16 11:37 08/08/16 11:37 08/08/16 11:37 08/08/16 11:37 08/08/16 11:37 General appearance: Present: A&O X 2 - Respiratory Respiratory exam: Present: CTAB. Absent: accessory muscle use, rales, rhonchi, wheezes - Cardiovascular Cardiovascular exam: Present: RRR, +S1, +S2. Absent: diastolic murmur, gallop, rubs, systolic murmur - GI/Abdominal GI/Abdominal exam: Present: normal bowel sounds, soft, no peritoneal signs. Absent: distended, tenderness - Extremities Exam Extremities exam: Present: full ROM, warm, radial pulses palpable and symetrical. Absent: calf tenderness, cyanotic, pedal edema Internal Medicine: Result - Labs CBC & Chem 7: 08/07/16 06:11 08/07/16 06:11 - ABG Interpretation ABG results: PT/INR, D-dimer PT 11.2 Seconds (9.4-12.1) 08/04/16 20:08 Consult Discharge Plan - Plan Additional Instructions: Follow-up with podiatry in 1-2 weeks Referrals: Melvin Maxwell DPM [Partnered Physician] - 08/22/16 1:00 pm (Please follow up as schedule....) Sandrine Mcknight CNP [Primary Care Provider] - 08/09/16 9:40 am Prescriptions: Amoxicillin/Clavulanate [Augmentin] 500 mg PO BIDWM #20 tablet PredniSONE 40 mg PO DAILY 7 Days
== END 2016-08-08 13:07 | DRG 190 ==
LOC: EMEROO 19:27 → 2ANU 19:27 → SUATTDRO 08-05 02:58
PROVIDERS: ADMIT Internal Medicine; ATTEND Internal Medicine

== ENCOUNTER 2016-08-30 15:55 | Inpatient (IN) ==
--- NOTE | 2016-08-30 16:00 | Emergency Department Note ---
Disposition Clinical Impression: Cough, COPD (chronic obstructive pulmonary disease), Elevated troponin, CKD ( chronic kidney disease) Disposition: Admitted As Inpatient Condition: Fair General Adult HPI - General Chief complaint: ED General Medical Stated complaint: Wants to see a Dr Time Seen by Provider: 08/30/16 15:58 - Related Data Home Medications Medication Instructions Recorded Confirmed Amlodipine [Norvasc] 5 mg PO DAILY #0 05/01/15 08/30/16 Atorvastatin Calcium [Lipitor] 20 mg PO HS #0 05/01/15 08/30/16 Carvedilol [Coreg] 6.25 mg PO BIDWM #0 05/01/15 08/30/16 Fluticasone/Salmeterol [Advair 1 puff IH BID #0 05/01/15 08/30/16 500-50 Diskus] Ipratropium/Albuterol Neb [Duoneb] 3 ml IH QID #0 05/01/15 08/30/16 Loperamide [Imodium] 2 mg PO Q4HR PRN #0 05/01/15 08/30/16 Montelukast [Singulair] 10 mg PO HS #0 05/01/15 08/30/16 Multivit/Ca/Min/Fe/FA [Thera M 1 tab PO DAILY #0 05/01/15 08/30/16 Plus] Oxybutynin Chloride [Ditropan Xl] 15 mg PO DAILY #0 05/01/15 08/30/16 Ranitidine HCl [Heartburn Relief] 150 mg PO BID #0 05/01/15 08/30/16 Roflumilast [Daliresp] 500 mcg PO DAILY #0 05/01/15 08/30/16 Sennosides [Senna] 17.2 mg PO HS PRN #0 05/01/15 08/30/16 Tiotropium [Spiriva] 1 cap IH DAILY #0 05/01/15 08/30/16 Vitamin E 400 unit PO DAILY #0 05/01/15 08/30/16 Acetaminophen [Tylenol] 650 mg PO Q6H PRN 09/14/15 08/30/16 Albuterol Sulfate [Proair Hfa] 2 puff IH Q4H PRN 09/14/15 08/30/16 Bisacodyl [Dulcolax] 10 mg RC Q3D PRN 09/14/15 08/30/16 Fentanyl 75 mcg TP Q72H 09/14/15 08/30/16 Loratadine [Claritin] 10 mg PO DAILY 09/14/15 08/30/16 Melatonin [Melatin] 3 mg PO HS PRN 09/14/15 08/30/16 Polyethylene Glycol 3350 [MiraLAX] 17 gm PO DAILY 09/14/15 08/30/16 Cholecalciferol (D-3) [Vitamin D] 2,000 unit PO DAILY 03/16/16 08/30/16 Gabapentin [Neurontin] 300 mg PO TID 03/16/16 08/30/16 LORazepam [Ativan] 0.5 mg PO BID 03/16/16 08/30/16 Azelastine 0.1% Nasal [place] 2 spray NS BID 08/04/16 08/30/16 [Astelin] Fluticasone Propionate Nasal 2 spray NS DAILY 08/04/16 08/30/16 [Flonase] Omeprazole [PriLOSEC] 40 mg PO DAILY 08/04/16 08/30/16 Phenyleph/Pramoxin/Glycr/W.pet 1 appl RC QID PRN 08/04/16 08/30/16 [Preparation H Cream] Saline Nasal [place] [[place] Nasal 1 spray NS TID 08/04/16 08/30/16 [place]] Previous Rx's Medication Instructions Recorded Lamotrigine [Lamictal] 100 mg PO HS 30 Days 09/17/15 Venlafaxine HCl 50 mg PO BID #30 tablet 09/17/15 Amoxicillin/Clavulanate [Augmentin] 500 mg PO BIDWM #20 tablet 08/08/16 Insulin Glargine [Lantus] 15 unit SQ HS #0 08/08/16 OxyCODONE/APAP 5/325 [Percocet 1 each PO Q6HR PRN #20 tablet 08/08/16 5/325 MG] Rivaroxaban [Xarelto] 15 mg PO DAILY #0 08/08/16 Allergies Allergy/AdvReac Type Severity Reaction Status Date / Time ciprofloxacin [From Cipro] Allergy Hives Verified 08/30/16 15:57 codeine Allergy Hives Verified 08/30/16 15:57 diphenhydramine Allergy Rash Verified 08/30/16 15:57 [From Benadryl] levofloxacin [From Levaquin] Allergy Swelling Verified 08/30/16 15:57 of Lip/Tongue/Throat Sulfa (Sulfonamide Allergy Hives Verified 08/30/16 15:57 Antibiotics) Past Medical History - Past Medical History Medical history: Reports: atrial fibrillation, COPD, CVA, DVT, diabetes, hypertension, pulmonary embolus, renal disease Surgical history: Reports: cholecystectomy, hysterectomy, orthopedic, other, other Psychiatric history: Reports: anxiety - Social History Smoking Status: Former smoker Smokeless Tobacco Status: No Alcohol use: Reports: none Drug use: Reports: none Course Vital Signs Temperature 99.3 F 08/30/16 16:00 Pulse Rate 87 08/30/16 16:00 Respiratory Rate 18 08/30/16 16:00 Blood Pressure 147/66 08/30/16 16:00 O2 Sat by Pulse Oximetry 100 08/30/16 16:00 Temperature 99.3 F 08/30/16 16:00 Pulse Rate 96 08/30/16 16:39 Respiratory Rate 18 08/30/16 17:09 Blood Pressure 151/95 08/30/16 17:09 O2 Sat by Pulse Oximetry 100 08/30/16 16:39 Oxygen Delivery Oxygen Delivery Nasal Cannula Medical Decision Making - Lab Data Result diagrams: 08/30/16 16:09 08/30/16 16:09 Lab Results 08/30/16 08/30/16 08/30/16 Range/Units 16:09 16:09 16:09 WBC 13.9 H (4.3-11.1) K/mcL RBC 4.02 (3.82-4.97) M/mcL Hgb 10.5 L (11.5-15.4) g/dL Hct 34.2 L (35.3-44.9) % MCV 85.1 (83.0-100.0) fL MCH 26.1 L (28.0-33.3) pg MCHC 30.7 L (31.6-35.5) g/dL RDW 13.4 (11.5-14.5) % Plt Count 219 (140-400) K/mcL MPV 8.3 L (9.4-12.4) fL Immature Gran % 1.2 (0-4) % Seg Neutrophils % 86.6 % Lymphocytes % 9.3 % Monocytes % 2.7 % Eosinophils % 0.1 % Basophils % 0.1 % Neutrophils # 12.0 H (1.6-8.9) K/mcL Lymphocytes # 1.3 (0.6-4.6) K/mcL Monocytes # 0.4 (0.0-1.3) K/mcL Eosinophils # 0.0 (0.0-0.6) K/mcL Basophils # 0.0 (0.0-0.2) K/mcL Sodium 138 (136-145) mEq/L Potassium 4.6 H (3.5-4.5) mEq/L Chloride 101 (98-109) mEq/L Carbon Dioxide 31 H (19-29) mEq/L BUN 21 H (7-20) mg/dL Creatinine 1.29 H (0.57-1.11) mg/dL Est GFR ( Amer) 48 L (> 60) Est GFR (Non-Af Amer) 40 L (> 60) BUN/Creatinine Ratio 16 (6-26) Glucose 264 H (70-99) mg/dL Calculated Osmolality 298 (280-300) Calcium 9.1 (8.6-10.8) mg/dL Total Bilirubin 0.4 (0.2-1.2) mg/dL AST 14 (5-34) Units/L ALT 19 (0-55) Units/L Alkaline Phosphatase 103 (38-126) Units/L Troponin I 0.04 H* (0-0.03) ng/mL B-Natriuretic Peptide (0-100) pg/mL Serum Total Protein 6.7 (6.0-8.3) g/dL Albumin 3.1 L (3.5-5.0) g/dL Globulin 3.6 H (2.4-3.5) g/dL Albumin/Globulin Ratio 0.9 L (1.1-2.2) 08/30/16 Range/Units 16:09 WBC (4.3-11.1) K/mcL RBC (3.82-4.97) M/mcL Hgb (11.5-15.4) g/dL Hct (35.3-44.9) % MCV (83.0-100.0) fL MCH (28.0-33.3) pg MCHC (31.6-35.5) g/dL RDW (11.5-14.5) % Plt Count (140-400) K/mcL MPV (9.4-12.4) fL Immature Gran % (0-4) % Seg Neutrophils % % Lymphocytes % % Monocytes % % Eosinophils % % Basophils % % Neutrophils # (1.6-8.9) K/mcL Lymphocytes # (0.6-4.6) K/mcL Monocytes # (0.0-1.3) K/mcL Eosinophils # (0.0-0.6) K/mcL Basophils # (0.0-0.2) K/mcL Sodium (136-145) mEq/L Potassium (3.5-4.5) mEq/L Chloride (98-109) mEq/L Carbon Dioxide (19-29) mEq/L BUN (7-20) mg/dL Creatinine (0.57-1.11) mg/dL Est GFR ( Amer) (> 60) Est GFR (Non-Af Amer) (> 60) BUN/Creatinine Ratio (6-26) Glucose (70-99) mg/dL Calculated Osmolality (280-300) Calcium (8.6-10.8) mg/dL Total Bilirubin (0.2-1.2) mg/dL AST (5-34) Units/L ALT (0-55) Units/L Alkaline Phosphatase (38-126) Units/L Troponin I (0-0.03) ng/mL B-Natriuretic Peptide 126 H (0-100) pg/mL Serum Total Protein (6.0-8.3) g/dL Albumin (3.5-5.0) g/dL Globulin (2.4-3.5) g/dL Albumin/Globulin Ratio (1.1-2.2) Attestation Statement - Attestation Attestation: I examined this patient and my medical decision-making was reviewed with the INPATIENT AUDITOR/PA/Advanced Practice Nurse/Resident Physician. I agree with the documented findings, disposition and treatment plan as described except to the extent set forth below. [id number] time provided in conjunction with the resident physician Dr. Drew Patient presents from the extended care facility via EMS with reports of cough and congestion. Home medication list reviewed by me. Patient appears in no acute distress on exam
--- NOTE | 2016-08-30 16:07 | Emergency Department Note ---
Disposition Clinical Impression: Cough, Elevated troponin COPD (chronic obstructive pulmonary disease) Qualifiers: COPD type: unspecified COPD Qualified Code(s): J44.9 - Chronic obstructive pulmonary disease, unspecified CKD (chronic kidney disease) Qualifiers: Chronic kidney disease stage: unspecified stage Qualified Code(s): N18.9 - Chronic kidney disease, unspecified Disposition: Admitted As Inpatient Condition: Fair General Adult HPI - General Chief complaint: ED Upper Respiratory Infection Stated complaint: Wants to see a Dr Time Seen by Provider: 08/30/16 15:58 Source: patient, EMS Mode of arrival: EMS Limitations: no limitations Nursing Notes Reviewed: Yes Vital Signs Reviewed: Yes - History of Present Illness HPI Narrative: 80-year-old female here for hypertension, diabetes, COPD on home oxygen at 2 L presents for evaluation of "wants to see a doctor". Patient denies really any specific complaint. But does note that she has had a cough productive sputum that started early this morning. No chest pain. No fevers. Does note shortness of breath. States that she was recently admitted for pneumonia 2 weeks ago. Denies any other complaints. No nausea vomiting. No abdominal pain. No episodes of confusion. No weakness. Patient presents from an ECF. Pain Scale: 5 - Related Data Home Medications Medication Instructions Recorded Confirmed Amlodipine [Norvasc] 5 mg PO DAILY #0 05/01/15 08/30/16 Atorvastatin Calcium [Lipitor] 20 mg PO HS #0 05/01/15 08/30/16 Carvedilol [Coreg] 6.25 mg PO BIDWM #0 05/01/15 08/30/16 Fluticasone/Salmeterol [Advair 1 puff IH BID #0 05/01/15 08/30/16 500-50 Diskus] Ipratropium/Albuterol Neb [Duoneb] 3 ml IH QID #0 05/01/15 08/30/16 Loperamide [Imodium] 2 mg PO Q4HR PRN #0 05/01/15 08/30/16 Montelukast [Singulair] 10 mg PO HS #0 05/01/15 08/30/16 Multivit/Ca/Min/Fe/FA [Thera M 1 tab PO DAILY #0 05/01/15 08/30/16 Plus] Oxybutynin Chloride [Ditropan Xl] 15 mg PO DAILY #0 05/01/15 08/30/16 Ranitidine HCl [Heartburn Relief] 150 mg PO BID #0 05/01/15 08/30/16 Roflumilast [Daliresp] 500 mcg PO DAILY #0 05/01/15 08/30/16 Sennosides [Senna] 17.2 mg PO HS PRN #0 05/01/15 08/30/16 Tiotropium [Spiriva] 1 cap IH DAILY #0 05/01/15 08/30/16 Vitamin E 400 unit PO DAILY #0 05/01/15 08/30/16 Acetaminophen [Tylenol] 650 mg PO Q6H PRN 09/14/15 08/30/16 Albuterol Sulfate [Proair Hfa] 2 puff IH Q4H PRN 09/14/15 08/30/16 Bisacodyl [Dulcolax] 10 mg RC Q3D PRN 09/14/15 08/30/16 Fentanyl 75 mcg TP Q72H 09/14/15 08/30/16 Loratadine [Claritin] 10 mg PO DAILY 09/14/15 08/30/16 Melatonin [Melatin] 3 mg PO HS PRN 09/14/15 08/30/16 Polyethylene Glycol 3350 [MiraLAX] 17 gm PO DAILY 09/14/15 08/30/16 Cholecalciferol (D-3) [Vitamin D] 2,000 unit PO DAILY 03/16/16 08/30/16 Gabapentin [Neurontin] 300 mg PO TID 03/16/16 08/30/16 LORazepam [Ativan] 0.5 mg PO BID 03/16/16 08/30/16 Azelastine 0.1% Nasal [place] 2 spray NS BID 08/04/16 08/30/16 [Astelin] Fluticasone Propionate Nasal 2 spray NS DAILY 08/04/16 08/30/16 [Flonase] Omeprazole [PriLOSEC] 40 mg PO DAILY 08/04/16 08/30/16 Phenyleph/Pramoxin/Glycr/W.pet 1 appl RC QID PRN 08/04/16 08/30/16 [Preparation H Cream] Saline Nasal [place] [[place] Nasal 1 spray NS TID 08/04/16 08/30/16 [place]] Previous Rx's Medication Instructions Recorded Lamotrigine [Lamictal] 100 mg PO HS 30 Days 09/17/15 Venlafaxine HCl 50 mg PO BID #30 tablet 09/17/15 Amoxicillin/Clavulanate [Augmentin] 500 mg PO BIDWM #20 tablet 08/08/16 Insulin Glargine [Lantus] 15 unit SQ HS #0 08/08/16 OxyCODONE/APAP 5/325 [Percocet 1 each PO Q6HR PRN #20 tablet 08/08/16 5/325 MG] Rivaroxaban [Xarelto] 15 mg PO DAILY #0 08/08/16 Allergies Allergy/AdvReac Type Severity Reaction Status Date / Time ciprofloxacin [From Cipro] Allergy Hives Verified 08/30/16 15:57 codeine Allergy Hives Verified 08/30/16 15:57 diphenhydramine Allergy Rash Verified 08/30/16 15:57 [From Benadryl] levofloxacin [From Levaquin] Allergy Swelling Verified 08/30/16 15:57 of Lip/Tongue/Throat Sulfa (Sulfonamide Allergy Hives Verified 08/30/16 15:57 Antibiotics) All systems ED: reviewed and negative except as stated. Constitutional: Reports: as per HPI. Denies: fever Eyes: Reports: as per HPI ENT ED: Reports: as per HPI Cardiovascular: Reports: as per HPI. Denies: chest pain, palpitations Respiratory: Reports: as per HPI, cough, dyspnea Gastrointestinal: Reports: as per HPI Genitourinary: Reports: as per HPI Musculoskeletal: Reports: as per HPI Integumentary: Reports: as per HPI Neurological: Reports: as per HPI Psychiatric: Reports: as per HPI Endocrine: Reports: as per HPI Past Medical History - Past Medical History Medical history: Reports: atrial fibrillation, COPD, CVA, DVT, diabetes, hypertension, pulmonary embolus, renal disease Surgical history: Reports: cholecystectomy, hysterectomy, orthopedic, other, other Psychiatric history: Reports: anxiety - Social History Smoking Status: Former smoker Smokeless Tobacco Status: No Alcohol use: Reports: none Drug use: Reports: none Physical Exam - General Limitations: no limitations General appearance: alert, in no apparent distress - Head Head exam: atraumatic, normocephalic, normal inspection - Eye Eye exam: Present: normal appearance, EOMI - ENT ENT exam: normal exam, normal oropharynx, mucous membranes moist - Neck Neck exam: Present: normal inspection, trachea midline - Chest Chest inspection: Present: normal inspection, symmetric chest wall rise - Respiratory Respiratory exam: Present: prolonged expiratory phase, other (Diffusely decreased breath sounds). Absent: respiratory distress - Cardiovascular Cardiovascular exam: Present: regular rate, normal rhythm - Abdominal Exam Abdominal exam: Present: soft, Non-Tender - Extremities Exam Extremities exam: Present: normal inspection, pedal edema (Trace bilateral) - Back Exam Back exam: Present: normal inspection. Absent: tenderness, CVA tenderness (R), CVA tenderness (L) - Neurological Exam Neurological exam: Present: alert, oriented X3, CN II-XII intact - Skin Skin exam: Present: warm, dry, intact, normal color Course Course Narrative: Patient seen and examined. Patient's vitals are stable. Patient will get a basic screening evaluation based on her complaints. Patient's been having cough as well as shortness of breath. Patient is not hypoxic on her room air oxygenation. Patient had a chest x-ray, EKG, basic lab work. Disposition pending. - Reevaluation(s) Reevaluation #1: Patient seen and examined. Patient's in no acute distress. Patient's breathing is nonlabored. Patient's lab work shows that she does have CK D as well as an elevated troponin of 0.04. Patient denies any chest pain. Patient does not have a cardiac history. Patient notes that she just "does not feel well". Time: 16:43 Vital Signs Temperature 99.3 F 08/30/16 16:00 Pulse Rate 87 08/30/16 16:00 Respiratory Rate 18 08/30/16 16:00 Blood Pressure 147/66 08/30/16 16:00 O2 Sat by Pulse Oximetry 100 08/30/16 16:00 Temperature 99.3 F 08/30/16 16:00 Pulse Rate 96 08/30/16 16:39 Respiratory Rate 18 08/30/16 17:09 Blood Pressure 151/95 08/30/16 17:09 O2 Sat by Pulse Oximetry 100 08/30/16 16:39 Oxygen Delivery Oxygen Delivery Nasal Cannula Medical Decision Making - [facility] Narrative Medical decision making narrative: 80-year-old female history of COPD, hypertension, diabetes presents for evaluation of "not feeling well" and wanting to see a doctor. Patient states that she has been feeling short of breath recently diagnosed with pneumonia on amoxicillin. Patient does not appear short of breath at baseline. Patient's on her home option requirement of 3 L. Patient had a chest x-ray performed which shows mild vascular congestion. Patient had basic screening labs, EKG. EKG is similar to prior EKGs. Patient's troponin did come back elevated at 0.04. Patient was given aspirin. Patient denies any chest pain. This elevation is slightly higher than prior evaluations. Patient's kidney function is at baseline. Patient's anemia is also at baseline. Patient does have slight leukocytosis possibly related to recent pneumonia. Will order a UA per the hospitalist. Patient will be admitted to the hospital service for further cardiac monitoring given the the elevated troponin and atypical presentation of chest pain with shortness of breath and a hyperglycemic patient states that she generally is not feeling well. This information was relayed to the patient. Patient will be admitted to the hospital service. - Lab Data Lab results reviewed: Yes I reviewed the patient's lab results. Result diagrams: 08/30/16 16:09 08/30/16 16:09 Lab Results 08/30/16 08/30/16 08/30/16 Range/Units 16:09 16:09 16:09 WBC 13.9 H (4.3-11.1) K/mcL RBC 4.02 (3.82-4.97) M/mcL Hgb 10.5 L (11.5-15.4) g/dL Hct 34.2 L (35.3-44.9) % MCV 85.1 (83.0-100.0) fL MCH 26.1 L (28.0-33.3) pg MCHC 30.7 L (31.6-35.5) g/dL RDW 13.4 (11.5-14.5) % Plt Count 219 (140-400) K/mcL MPV 8.3 L (9.4-12.4) fL Immature Gran % 1.2 (0-4) % Seg Neutrophils % 86.6 % Lymphocytes % 9.3 % Monocytes % 2.7 % Eosinophils % 0.1 % Basophils % 0.1 % Neutrophils # 12.0 H (1.6-8.9) K/mcL Lymphocytes # 1.3 (0.6-4.6) K/mcL Monocytes # 0.4 (0.0-1.3) K/mcL Eosinophils # 0.0 (0.0-0.6) K/mcL Basophils # 0.0 (0.0-0.2) K/mcL Sodium 138 (136-145) mEq/L Potassium 4.6 H (3.5-4.5) mEq/L Chloride 101 (98-109) mEq/L Carbon Dioxide 31 H (19-29) mEq/L BUN 21 H (7-20) mg/dL Creatinine 1.29 H (0.57-1.11) mg/dL Est GFR ( Amer) 48 L (> 60) Est GFR (Non-Af Amer) 40 L (> 60) BUN/Creatinine Ratio 16 (6-26) Glucose 264 H (70-99) mg/dL Calculated Osmolality 298 (280-300) Calcium 9.1 (8.6-10.8) mg/dL Total Bilirubin 0.4 (0.2-1.2) mg/dL AST 14 (5-34) Units/L ALT 19 (0-55) Units/L Alkaline Phosphatase 103 (38-126) Units/L Troponin I 0.04 H* (0-0.03) ng/mL Serum Total Protein 6.7 (6.0-8.3) g/dL Albumin 3.1 L (3.5-5.0) g/dL Globulin 3.6 H (2.4-3.5) g/dL Albumin/Globulin Ratio 0.9 L (1.1-2.2) - Radiology Data Radiology results reviewed: Yes I reviewed the patient's radiology results. Chest X-Ray 08/30/16 16:04 IMPRESSION: Mild pulmonary vascular congestion. Increased lung markings at the bilateral infrahilar regions, may be related to bronchitis. D/ / Kevin Willett MD / Kevin Willett MD Interpreting Provider: Kevin Willett MD - EKG Data EKG #1 EKG shows normal: sinus rhythm Rate: normal Rhythm: NSR [place]/QRS: left axis deviation, RBBB, LAHB/LAFB QTc: other (399) Interpretation: unchanged when compared to prior tracing (date) (07/2016), nonspecific ST-T wave changes SCoy - Jessica Situation: Demographics Background: Presenting Complaint Assessment: Vital Signs, Course and respsone to treatment, Patient/Family Expectation, Pertinant Lab Results Recommendation: Barrier(s) to disposition, Recommendation based on pending studies, treatments, or consults S.B.Jamilah Report Given to: Dr. Mau Lopez Repor Time: 16:55
[2016-08-30 16:16] LABS: Basophils % 0.1 %; Eosinophils % 0.1 %; Hematocrit 34.2 % (35.3-44.9); Hemoglobin 10.5 g/dL (11.5-15.4); Immature Granulocytes % 1.2 % (0-4); Lymphocytes # 1.3 K/mcL (0.6-4.6); Lymphocytes % 9.3 %; Mean Corpuscular HGB Conc 30.7 g/dL (31.6-35.5); Mean Corpuscular Hemoglobin 26.1 pg (28.0-33.3); Mean Corpuscular Volume 85.1 fL (83.0-100.0); Mean Platelet Volume 8.3 fL (9.4-12.4); Monocytes # 0.4 K/mcL (0.0-1.3); Monocytes % 2.7 %; Platelet Count 219 K/mcL (140-400); Red Blood Count 4.02 M/mcL (3.82-4.97); Red Cell Distribution Width 13.4 % (11.5-14.5); Segmented Neutrophils % 86.6 %
[2016-08-30 16:29] LABS: Albumin 3.1 g/dL (3.5-5.0); Albumin/Globulin Ratio 0.9 (1.1-2.2); Bilirubin,Total 0.4 mg/dL (0.2-1.2); Calcium 9.1 mg/dL (8.6-10.8); Globulin 3.6 g/dL (2.4-3.5); Potassium 4.6 mEq/L (3.5-4.5); Total Protein 6.7 g/dL (6.0-8.3)
[2016-08-30] MEDS ORDERED: Aspirin 81 MG TAB.CHEW PO ONE (16:43)
[2016-08-30 17:17] LABS: Bilirubin,Urine Negative (Negative); Blood,Urine Negative (Negative); Clarity,Urine Clear (Clear); Color,Urine Yellow (Yellow); Glucose,Urine (UA) 250 mg/dL (Normal); Ketones,Urine Negative (Negative); Leukocyte Esterase,Urine Negative (Negative); Nitrite,Urine Negative (Negative); PH,Urine 6.5 pH Units (5.0-8.0); Protein,Urine 30 mg/dL (Neg-Trace); Specific Gravity,Urine 1.009 (1.010-1.025); Urobilinogen,Urine Normal (Normal)
[2016-08-30 17:19] LABS: Bacteria,Urine None Seen per hpf (None-Few); Hyaline Casts,Urine None Seen per lpf (None-Few); RBC,Urine 0-3 per hpf (0-3); Squamous Epithelial Cell,Urine Many per lpf (None-Few); WBC,Urine 0-3 per hpf (0-3)
[2016-08-30] MEDS ORDERED: Naloxone 0.4 MG/ML INJ IVP PRN (17:58)
[2016-08-30] MEDS ORDERED: Albuterol 2.5 MG/3 ML NEBULIZER IH PRN (18:02)
[2016-08-30] MEDS ORDERED: Melatonin 3 MG TABLET PO PRN (18:03)
[2016-08-30] MEDS ORDERED: Acetaminophen 325 MG TABLET PO PRN (18:03)
[2016-08-30] MEDS ORDERED: *HR* OxyCODONE/APAP 5/325 TABLET PO PRN (18:03)
[2016-08-30] MEDS ORDERED: D5% in Water 1,000 ML IVC PRN (18:13)
[2016-08-30] MEDS ORDERED: Dextrose Gel 15 GM PO PRN ×2 (18:13)
[2016-08-30] MEDS ORDERED: *HR* Dextrose 50 % in Water (Syg) 50 ML SYRINGE IVP PRN (18:13)
[2016-08-30] MEDS ORDERED: *HR* FentaNYL PATCH 75 MCG PATCH TD SCH (18:15)
--- NOTE | 2016-08-30 18:24 | Internal Med History&Physical ---
Date of Encounter: 08/30/16 Time of Encounter: 18:16 Assessment and Plan (1) Acute exacerbation of chronic obstructive pulmonary disease (COPD) Current visit: No Status: Acute Patient reports productive cough and shortness of breath. She is satting 90-100 % on her baseline 3L NC. CXR shows mild pulmonary vascular congestion. Increased lung markings at bilateral infrahilar which may be related to bronchitis. Patient was diagnosed with Pneumonia 2 weeks ago and completed a course of Augmentin. Cefepime IVPB BID Prednisone 60mg daily duoneb treatments QID albuterol nebulizer Q2 PRN Budesonide/formoterol BID continue home doses of singulair, spiriva titrate oxygen to maintain O2 sat > 90%. (2) Elevated troponin Current visit: Yes Status: Acute Troponin elevated mildly at 0.04. Patient denies any chest pain. EKG showed no changes from previous. 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 (3) DM (diabetes mellitus), type 2 with renal complications Current visit: No Status: Chronic Check Hgb A1c diabetic diet check blood sugars ACHS Continue basal dose of insulin 15u Levemir HS Sliding scale insulin correction dose ACHS hypoglycemic protocol. Qualifiers: Diabetes mellitus complication detail: with chronic kidney disease Diabetes mellitus industrial servicer insulin use: unspecified shelter insulin use status Chronic kidney disease stage: stage 3 (moderate) Qualified Code(s): E11.22 - Type 2 diabetes mellitus with diabetic chronic kidney disease; N18.3 - Chronic kidney disease, stage 3 (moderate) (4) HTN (hypertension) Current visit: No Status: Chronic Continue home doses of coreg and amlodipine. Qualifiers: Hypertension type: essential hypertension Qualified Code(s): I10 - Essential (primary) hypertension (5) DVT prophylaxis Current visit: No Status: Acute calf sequential compression devices Patient on Xarelto for history of DVT/PE, additional pharmacologic prophylaxis not warranted. Internal Medicine - H&P: HPI Chief complaint: cough, shortness of breath Admitted From: Emergency Dept Plans for Post Hospital Care: Home History of present illness: Ms. Jordan is a 80 year old female with HTN, CKD, type 2 diabetes, COPD, history of DVT/PE on Xarelto, CKDchronic back pain, who was sent to the ED today from her correction with complaints of productive cough, shortness of breath. Patient reports that she woke up in the middle the night with sweats and feeling shaky and she just generally did not feel well. She reports that she has a productive cough, worse than previous. Patient has COPD and is on 3 L of oxygen at home, and she is satting well on her baseline 3 L. She was diagnosed with pneumonia 2 weeks ago and completed her course of antibiotics at that time. She denies any headache, lightheadedness, chest pain, palpitations, nausea, vomiting, abdominal pain, diarrhea. Evaluation in the emergency department was significant for elevated white blood cell count of 13.9. She is mildly hyperkalemic with potassium of 4.6. Her troponin was mildly elevated at 0.04, patient continues to deny chest pain. BUN and creatinine were at her baseline consistent with her CKD diagnosis. She was hyperglycemic with glucose of 264. Chest x-ray showed mild pulmonary vascular congestion increased lung markings at bilaterally lateral infrahilar may be related to bronchitis. EKG showed normal sinus rhythm and no changes from previous EKG. On exam, patient is alert and oriented, in no acute distress. Heart has regular rate and rhythm. Lungs have bilateral mild rhonchi. Past Med Surg Social Fam HX - Past Medical History Medical history: atrial fibrillation, CHF, COPD, CVA, DVT, diabetes, hypertension, pulmonary embolus, renal disease Psychiatric history: anxiety - Past Surgical History Surgical History: cholecystectomy, hysterectomy, orthopedic, other, other - Social History Smoking Status: Former smoker (110 pack year history) Smokeless Tobacco Status: No Alcohol use: none Drug use: none - Family History Mother Living Status: Age at : 81 Cause of : [place] Hx Family Cardiac Disorders: Yes Hx Family Respiratory Disorders: Yes Hx Family Endocrine Disorder: Yes Father Living Status: Age at : 75 Cause of : [place] Hx Family Cardiac Disorders: Yes Hx Family Respiratory Disorders: Yes Hx Family Cancer: No Internal Medicine - H&P: Meds Amlodipine [Norvasc] 5 mg PO DAILY #0 05/01/15 [History] Atorvastatin Calcium [Lipitor] 20 mg PO HS #0 05/01/15 [History] Carvedilol [Coreg] 6.25 mg PO BIDWM #0 05/01/15 [History] Fluticasone/Salmeterol [Advair 500-50 Diskus] 1 puff IH BID #0 05/01/15 [ History] Ipratropium/Albuterol Neb [Duoneb] 3 ml IH QID #0 05/01/15 [History] Loperamide [Imodium] 2 mg PO Q4HR PRN #0 05/01/15 [History] Montelukast [Singulair] 10 mg PO HS #0 05/01/15 [History] Multivit/Ca/Min/Fe/FA [Thera M Plus] 1 tab PO DAILY #0 05/01/15 [History] Oxybutynin Chloride [Ditropan Xl] 15 mg PO DAILY #0 05/01/15 [History] Ranitidine HCl [Heartburn Relief] 150 mg PO BID #0 05/01/15 [History] Roflumilast [Daliresp] 500 mcg PO DAILY #0 05/01/15 [History] Sennosides [Senna] 17.2 mg PO HS PRN #0 05/01/15 [History] Tiotropium [Spiriva] 1 cap IH DAILY #0 05/01/15 [History] Vitamin E 400 unit PO DAILY #0 05/01/15 [History] Acetaminophen [Tylenol] 650 mg PO Q6H PRN 09/14/15 [History] Albuterol Sulfate [Proair Hfa] 2 puff IH Q4H PRN 09/14/15 [History] Bisacodyl [Dulcolax] 10 mg RC Q3D PRN 09/14/15 [History] Fentanyl 75 mcg TP Q72H 09/14/15 [History] Loratadine [Claritin] 10 mg PO DAILY 09/14/15 [History] Melatonin [Melatin] 3 mg PO HS PRN 09/14/15 [History] Polyethylene Glycol 3350 [MiraLAX] 17 gm PO DAILY 09/14/15 [History] Lamotrigine [Lamictal] 100 mg PO HS 30 Days 09/17/15 [Rx] Venlafaxine HCl 50 mg PO BID #30 tablet 09/17/15 [Rx] Cholecalciferol (D-3) [Vitamin D] 2,000 unit PO DAILY 03/16/16 [History] Gabapentin [Neurontin] 300 mg PO TID 03/16/16 [History] LORazepam [Ativan] 0.5 mg PO BID 03/16/16 [History] Azelastine 0.1% Nasal [place] [Astelin] 2 spray NS BID 08/04/16 [History] Fluticasone Propionate Nasal [Flonase] 2 spray NS DAILY 08/04/16 [History] Omeprazole [PriLOSEC] 40 mg PO DAILY 08/04/16 [History] Phenyleph/Pramoxin/Glycr/W.pet [Preparation H Cream] 1 appl RC QID PRN 08/04/16 [History] Saline Nasal [place] [[place] Nasal [place]] 1 spray NS TID 08/04/16 [History] Amoxicillin/Clavulanate [Augmentin] 500 mg PO BIDWM #20 tablet 08/08/16 [Rx] Insulin Glargine [Lantus] 15 unit SQ HS #0 08/08/16 [Rx] OxyCODONE/APAP 5/325 [Percocet 5/325 MG] 1 each PO Q6HR PRN #20 tablet 08/08/16 [Rx] Rivaroxaban [Xarelto] 15 mg PO DAILY #0 08/08/16 [Rx] Allergies ciprofloxacin [From Cipro] Allergy (Verified 08/30/16 15:57) Hives codeine Allergy (Verified 08/30/16 15:57) Hives diphenhydramine [From Benadryl] Allergy (Verified 08/30/16 15:57) Rash levofloxacin [From Levaquin] Allergy (Verified 08/30/16 15:57) Swelling of Lip/Tongue/Throat Sulfa (Sulfonamide Antibiotics) Allergy (Verified 08/30/16 15:57) Hives All Systems PM: A 10-system review of systems was performed and is negative for pertinent findings except as documented above in the HPI. - Constitutional Constitutional: night sweats, no chills, no fever(s) - EENT Eyes: no change in vision, no discharge, no pain, no photophobia Ears: no ear discharge, no ear pain, no tinnitus Nose, mouth and throat: no dysphagia, no nasal discharge, no neck pain, no sore throat - Cardiovascular Cardiovascular ROS IM: dyspnea, no chest pain, no diaphoresis, no lightheadedness, no palpitations, no syncope - Respiratory Respiratory: cough, dyspnea, excessive phlegm production, no wheezing - Gastrointestinal Gastrointestinal: no abdominal pain, no diarrhea, no hematemesis, no hematochezia, no melena, no nausea, no vomiting - Genitourinary Genitourinary: no change in urinary stream, no dysuria, no flank pain, no hematuria - Musculoskeletal Musculoskeletal ROS IM: no numbness, no tingling - Integumentary Integumentary IM: no rash, no unusual bruising - Neurological Neurological ROS: no confusion, no convulsions, no focal weakness, no numbness, no tingling, no tremor(s) - Hematologic/Lymphatic Hematologic/Lymphatic: no easy bruising - Constitutional Vitals: Temp Pulse Resp BP Pulse Ox 99.3 F 96 18 151/95 100 08/30/16 16:00 08/30/16 16:39 08/30/16 17:09 08/30/16 17:09 08/30/16 16:39 General appearance: Present: A&O X 3, pleasant, no acute distress - Head Head exam: Present: atraumatic, normocephalic - Eye Eye exam: Present: PERRL, conjuntiva pink, sclera anicteric Pupils: Present: PERRL - Neck Neck exam general surgery: Present: supple, trachea midline. Absent: lymphadenopathy - Respiratory Respiratory exam: Present: rhonchi, wheezes. Absent: accessory muscle use, rales - Cardiovascular Cardiovascular exam: Present: RRR, +S1, +S2. Absent: diastolic murmur, gallop, rubs, systolic murmur - GI/Abdominal GI/Abdominal exam: Present: normal bowel sounds, soft, no peritoneal signs. Absent: distended, tenderness - Extremities Exam Extremities exam: Present: warm, radial pulses palpable and symetrical. Absent : calf tenderness, cyanotic, pedal edema - Neurological Exam Neurological exam: Present: CN II-XII intact, oriented X3, no focal deficits. Absent: facial droop, speech deficit - Skin Skin exam: Present: dry, intact Internal Med - H&P Results - Labs CBC & Chem 7: 08/30/16 16:09 08/30/16 16:09 Labs: All Lab Results (24 Hours) 08/30/16 08/30/16 08/30/16 Range/Units 16:09 16:09 16:09 WBC 13.9 H (4.3-11.1) K/mcL RBC 4.02 (3.82-4.97) M/mcL Hgb 10.5 L (11.5-15.4) g/dL Hct 34.2 L (35.3-44.9) % MCV 85.1 (83.0-100.0) fL MCH 26.1 L (28.0-33.3) pg MCHC 30.7 L (31.6-35.5) g/dL RDW 13.4 (11.5-14.5) % Plt Count 219 (140-400) K/mcL MPV 8.3 L (9.4-12.4) fL Immature Gran % 1.2 (0-4) % Seg Neutrophils % 86.6 % Lymphocytes % 9.3 % Monocytes % 2.7 % Eosinophils % 0.1 % Basophils % 0.1 % Neutrophils # 12.0 H (1.6-8.9) K/mcL Lymphocytes # 1.3 (0.6-4.6) K/mcL Monocytes # 0.4 (0.0-1.3) K/mcL Eosinophils # 0.0 (0.0-0.6) K/mcL Basophils # 0.0 (0.0-0.2) K/mcL Sodium 138 (136-145) mEq/L Potassium 4.6 H (3.5-4.5) mEq/L Chloride 101 (98-109) mEq/L Carbon Dioxide 31 H (19-29) mEq/L BUN 21 H (7-20) mg/dL Creatinine 1.29 H (0.57-1.11) mg/dL Est GFR ( Amer) 48 L (> 60) Est GFR (Non-Af Amer) 40 L (> 60) BUN/Creatinine Ratio 16 (6-26) Glucose 264 H (70-99) mg/dL Calculated Osmolality 298 (280-300) Calcium 9.1 (8.6-10.8) mg/dL Total Bilirubin 0.4 (0.2-1.2) mg/dL AST 14 (5-34) Units/L ALT 19 (0-55) Units/L Alkaline Phosphatase 103 (38-126) Units/L Troponin I 0.04 H* (0-0.03) ng/mL Serum Total Protein 6.7 (6.0-8.3) g/dL Albumin 3.1 L (3.5-5.0) g/dL Globulin 3.6 H (2.4-3.5) g/dL Albumin/Globulin Ratio 0.9 L (1.1-2.2) Urine Color (Yellow) Urine Clarity (Clear) Urine pH (5.0-8.0) pH Units Ur Specific [place] (1.010-1.025) Urine Protein (Neg-Trace) mg/dL Urine Glucose (UA) (Normal) mg/dL Urine Ketones (Negative) mg/dL Urine Blood (Negative) Urine Nitrite (Negative) Urine Bilirubin (Negative) Urine Urobilinogen (Normal) mg/dL Ur Leukocyte Esterase (Negative) Urine Microscopic RBC (0-3) per hpf Urine Microscopic WBC (0-3) per hpf Ur Squamous Epith Cells (None-Few) per lpf Urine Bacteria (None-Few) per hpf Hyaline Casts (None-Few) per lpf 08/30/16 Range/Units 17:08 WBC (4.3-11.1) K/mcL RBC (3.82-4.97) M/mcL Hgb (11.5-15.4) g/dL Hct (35.3-44.9) % MCV (83.0-100.0) fL MCH (28.0-33.3) pg MCHC (31.6-35.5) g/dL RDW (11.5-14.5) % Plt Count (140-400) K/mcL MPV (9.4-12.4) fL Immature Gran % (0-4) % Seg Neutrophils % % Lymphocytes % % Monocytes % % Eosinophils % % Basophils % % Neutrophils # (1.6-8.9) K/mcL Lymphocytes # (0.6-4.6) K/mcL Monocytes # (0.0-1.3) K/mcL Eosinophils # (0.0-0.6) K/mcL Basophils # (0.0-0.2) K/mcL Sodium (136-145) mEq/L Potassium (3.5-4.5) mEq/L Chloride (98-109) mEq/L Carbon Dioxide (19-29) mEq/L BUN (7-20) mg/dL Creatinine (0.57-1.11) mg/dL Est GFR ( Amer) (> 60) Est GFR (Non-Af Amer) (> 60) BUN/Creatinine Ratio (6-26) Glucose (70-99) mg/dL Calculated Osmolality (280-300) Calcium (8.6-10.8) mg/dL Total Bilirubin (0.2-1.2) mg/dL AST (5-34) Units/L ALT (0-55) Units/L Alkaline Phosphatase (38-126) Units/L Troponin I (0-0.03) ng/mL Serum Total Protein (6.0-8.3) g/dL Albumin (3.5-5.0) g/dL Globulin (2.4-3.5) g/dL Albumin/Globulin Ratio (1.1-2.2) Urine Color Yellow (Yellow) Urine Clarity Clear (Clear) Urine pH 6.5 (5.0-8.0) pH Units Ur Specific [place] 1.009 L (1.010-1.025) Urine Protein 30 H (Neg-Trace) mg/dL Urine Glucose (UA) 250 H (Normal) mg/dL Urine Ketones Negative (Negative) mg/dL Urine Blood Negative (Negative) Urine Nitrite Negative (Negative) Urine Bilirubin Negative (Negative) Urine Urobilinogen Normal (Normal) mg/dL Ur Leukocyte Esterase Negative (Negative) Urine Microscopic RBC 0-3 (0-3) per hpf Urine Microscopic WBC 0-3 (0-3) per hpf Ur Squamous Epith Cells Many H (None-Few) per lpf Urine Bacteria None Seen (None-Few) per hpf Hyaline Casts None Seen (None-Few) per lpf - Diagnostic Studies Chest x-ray Additional comments: Chest X-Ray 08/30/16 16:04 IMPRESSION: Mild pulmonary vascular congestion. Increased lung markings at the bilateral infrahilar regions, may be related to bronchitis. D/ / Kevin Willett MD / Kevin Willett MD Interpreting Provider: Kevin Willett MD
[2016-08-30] MEDS: Cefepime HCl 1,000 MG in D5% in Water (Mini-Bag+) 100 ML IVPB SCH (18:39)
[2016-08-30] MEDS: Insulin LISPRO 300 UNITS/3 ML VIAL SQ SCH ×2 (18:42→21:57)
[2016-08-30] MEDS: predniSONE 20 MG TABLET PO SCH (18:47)
--- NOTE | 2016-08-30 18:47 | Event Note ---
Date of Encounter: 08/30/16 Time of Encounter: 18:46 patient seen and examined with cold working inspector. Agree with assessment and plan
[2016-08-30] MEDS: Ipratropium/Albuterol Neb 3 ML IH SCH ×2 (20:13→22:50)
[2016-08-30] MEDS: Budesonide/Formoterol 160/4.5 MDI IH SCH (20:15)
[2016-08-30] MEDS: lamoTRIgine 100 MG TABLET PO SCH (21:44)
[2016-08-30] MEDS: Gabapentin 300 MG CAPSULE PO SCH (21:45)
[2016-08-30] MEDS: Famotidine 20 MG TABLET PO SCH (21:45)
[2016-08-30] MEDS: *HR* LORazepam 0.5 MG TABLET PO SCH (21:45)
[2016-08-30] MEDS: Insulin DETEMIR 100 UNIT/ML X5UNITS SQ SCH (21:57)
[2016-08-30] MEDS ORDERED: Benzonatate 100 MG CAPSULE PO PRN (23:51)
[2016-08-31 00:40] LABS: Hemoglobin A1C 7.3 %
[2016-08-31] MEDS: Ipratropium/Albuterol Neb 3 ML IH SCH ×2 (03:45→10:24)
[2016-08-31 04:23] LABS: Basophils % 0.1 %; Hematocrit 31.5 % (35.3-44.9); Hemoglobin 9.8 g/dL (11.5-15.4); Immature Granulocytes % 1.1 % (0-4); Mean Corpuscular HGB Conc 31.1 g/dL (31.6-35.5); Mean Corpuscular Hemoglobin 26.1 pg (28.0-33.3); Mean Corpuscular Volume 83.8 fL (83.0-100.0); Mean Platelet Volume 8.7 fL (9.4-12.4); Monocytes # 0.2 K/mcL (0.0-1.3); Monocytes % 1.4 %; Neutrophils # 10.2 K/mcL (1.6-8.9); Platelet Count 221 K/mcL (140-400); Red Blood Count 3.76 M/mcL (3.82-4.97); Red Cell Distribution Width 13.3 % (11.5-14.5); Segmented Neutrophils % 88.4 %
[2016-08-31 04:39] LABS: Calcium 8.8 mg/dL (8.6-10.8); Potassium 4.6 mEq/L (3.5-4.5)
[2016-08-31] MEDS: Cefepime HCl 1,000 MG in D5% in Water (Mini-Bag+) 100 ML IVPB SCH (06:35)
[2016-08-31] MEDS: GuaiFENesin Liq 200 MG/10 ML UDC PO SCH ×4 (07:11→20:48)
[2016-08-31] MEDS ORDERED: Acetaminophen 325 MG TABLET PO PRN (08:05)
[2016-08-31] MEDS ORDERED: *HR* OxyCODONE/APAP 5/325 TABLET PO PRN (08:06)
[2016-08-31] MEDS: *HR* Rivaroxaban 15 MG TABLET PO SCH (08:34)
[2016-08-31] MEDS: Loratadine 10 MG TABLET PO SCH (08:34)
[2016-08-31] MEDS: predniSONE 20 MG TABLET PO SCH (08:34)
[2016-08-31] MEDS: *HR* LORazepam 0.5 MG TABLET PO SCH ×2 (08:34→20:48)
[2016-08-31] MEDS: Gabapentin 300 MG CAPSULE PO SCH ×3 (08:34→20:48)
[2016-08-31] MEDS: Insulin LISPRO 300 UNITS/3 ML VIAL SQ SCH ×4 (08:35→21:39)
[2016-08-31] MEDS: amLODIPine 5 MG TABLET PO SCH (08:35)
[2016-08-31] MEDS: Famotidine 20 MG TABLET PO SCH ×2 (08:35→20:47)
[2016-08-31] MEDS: Fluticasone Propionate Nasal 50 MCG/SPRAY BOTTLE NS SCH (08:51)
[2016-08-31] MEDS: Budesonide/Formoterol 160/4.5 MDI IH SCH ×2 (10:24→20:45)
[2016-08-31] MEDS: Tiotropium 18 MCG inhalation IH SCH (10:24)
[2016-08-31] MEDS ORDERED: *HR* Metoprolol 5 MG/5 ML VIAL IVP PRN (10:58)
--- NOTE | 2016-08-31 11:45 | Internal Med Progress Note ---
Date of Encounter: 08/31/16 Time of Encounter: 10:20 - Assessment and plan (1) Paranoia (psychosis) Current Visit: Yes Status: Acute Assessment and plan: appears to be a chronic process as per the care home reports pt received one dose of Haldol 2mg PO this morning with improvement in anxiety psych consultation requested, will adjust therapy as per psych recommendations (2) Acute exacerbation of chronic obstructive pulmonary disease (COPD) Current Visit: No Status: Acute Assessment and plan: continue systemic steroids and bronchodilator support continue IV abx patient responding well to therapy continue to monitor O2 sat O2 sat goal: 89-92% (3) Atrial fibrillation Current Visit: No Status: Chronic Assessment and plan: noted to be on Carvedilol 6.25 PO BID for rate control, noted to be tachycardic( sinus tachycardia), will give one dose of Lopressor 5mg IV as this appears to be anxiety driven as well If rate continues to remain poorly controlled, will increase BB dose Anticoagulated with Xarelto Qualifiers: Atrial fibrillation type: chronic Qualified Code(s): I48.2 - Chronic atrial fibrillation (4) CKD (chronic kidney disease) stage 3, GFR 30-59 ml/min Current Visit: No Status: Chronic Assessment and plan: renal function at baseline continue to monitor (5) Diabetes Current Visit: No Status: Chronic Assessment and plan: increase in A1C noted will continue to monitor FS and BG ss insulin as needed will adjust insulin therapy as per BG readings Qualifiers: Diabetes mellitus type: type 2 Diabetes mellitus complication status: with kidney complications Diabetes mellitus complication detail: with chronic kidney disease Diabetes mellitus chcf insulin use: with superintendent marine oil terminal use Chronic kidney disease stage: stage 3 (moderate) Qualified Code(s): E11.22 - Type 2 diabetes mellitus with diabetic chronic kidney disease; N18.3 - Chronic kidney disease, stage 3 (moderate); Z79.4 - penitentiary (current) use of insulin (6) DVT prophylaxis Current Visit: No Status: Acute Assessment and plan: anticoagulated with Xarelto (7) Elevated troponin Current Visit: Yes Status: Resolved (8) History of DVT (deep vein thrombosis) Current Visit: No Status: Chronic Assessment and plan: anticoagulated with Xarelto (9) HTN (hypertension) Current Visit: No Status: Chronic Assessment and plan: Noted to be hypertensive this morning despite receiving home htn medications Gave one dose of Lopressor 5mg IV with improvement in BP will closely monitor if remains hypertensive, will adjust home medications accordingly Qualifiers: Hypertension type: essential hypertension Qualified Code(s): I10 - Essential (primary) hypertension (10) Obesity Current Visit: No Status: Chronic Qualifiers: Obesity type: due to excess calories Obesity severity: non-morbid Qualified Code(s): E66.09 - Other obesity due to excess calories - Subjective Interval history: Patient seen and examined at bedside. Pt reported of having hallucinations from the NH that she has oral fluids leaking all over her body and she is in severe distress because of it. She continuously keeps saying that she is choking because of these secretions. Upon my evaluation, patient is noted to be tolerating PO intake but remains severely anxious and having active hallucinations of these oral fluids. Psychiatry consultation was placed with Dr. Zimmerman and he will see the patient either today or tomorrow. - Constitutional Vitals: Temp Pulse Resp BP Pulse Ox 97.5 F L 104 18 164/68 100 08/31/16 10:55 08/31/16 10:55 08/31/16 10:55 08/31/16 10:55 08/31/16 10:55 General appearance: Present: A&O X 1 (oriented to self but confused and frightened because of the hallucinations/paranoia), pleasant, no acute distress - Head Head exam: Present: atraumatic, normocephalic - Eye Eye exam: Present: normal appearance, conjuntiva pink, sclera anicteric - Respiratory Respiratory exam: Present: decreased breath sounds. Absent: respiratory distress, wheezes - Cardiovascular Cardiovascular exam: Present: RRR, +S1, +S2. Absent: diastolic murmur, gallop, rubs, systolic murmur - GI/Abdominal GI/Abdominal exam: Present: normal bowel sounds, soft, no peritoneal signs. Absent: distended, tenderness - Extremities Exam Extremities exam: Present: warm, radial pulses palpable and symetrical. Absent : calf tenderness - Neurological Exam Neurological exam: Present: alert - Psychiatric Psychiatric exam: Present: anxious Internal Medicine: Result - Labs CBC & Chem 7: 08/31/16 03:53 08/31/16 03:53 Labs: Short CBC 08/31/16 Range/Units 03:53 WBC 11.6 H (4.3-11.1) K/mcL Hgb 9.8 L (11.5-15.4) g/dL Hct 31.5 L (35.3-44.9) % Plt Count 221 (140-400) K/mcL Neutrophils # 10.2 H (1.6-8.9) K/mcL BMP 08/31/16 03:53 Sodium 139 Potassium 4.6 H Chloride 103 Carbon Dioxide 30 H BUN 25 H Creatinine 1.15 H Glucose 206 H Calcium 8.8 Cardiac Enzymes 08/30/16 08/31/16 Range/Units 22:40 03:53 Troponin I 0.03 0.03 (0-0.03) ng/mL Urine 08/30/16 Range/Units 17:08 Urine Color Yellow (Yellow) Urine Clarity Clear (Clear) Urine pH 6.5 (5.0-8.0) pH Units Ur Specific [place] 1.009 L (1.010-1.025) Urine Protein 30 H (Neg-Trace) mg/dL Urine Glucose (UA) 250 H (Normal) mg/dL Consult Discharge Plan - Plan Referrals: NO,PCP [Primary Care Provider] - (Patient will follow up with [facility] PCP)
[2016-08-31] MEDS ORDERED: Sennosides/Docusate Sodium TABLET PO PRN (12:46)
[2016-08-31] MEDS ORDERED: Ipratropium/Albuterol Neb 3 ML IH PRN (12:48)
--- NOTE | 2016-08-31 14:25 | Electrocardiograph Report ---
[address] [place] [address] Test Date: 2016-08-30 Pat Name: Chrissie Jordan Department: 102 Room: 2A12 Gender: F Dressage Instructor: [facility] : [id number] Requested By: Rishi Drew Order Number: [id number] Reading MD: Tao Weller MD Measurements Intervals [place] Rate: 91 P: 60 HI: 151 QRS: -63 QRSD: 103 T: 12 QT: 350 QTc: 399 Interpretive Statements SINUS RHYTHM WITH OCCASIONAL SUPRAVENTRICULAR PREMATURE COMPLEXES INCOMPLETE RIGHT BUNDLE BRANCH BLOCK LEFT ANTERIOR FASCICULAR BLOCK MODERATE VOLTAGE CRITERIA FOR LVH Electronically Signed On 08-31-2016 14:23:34 EDT by Tao Weller MD
--- NOTE | 2016-08-31 14:54 | Consult Note ---
Date of Encounter: 08/31/16 Time of Encounter: 14:30 Assessment & Recommendation (1) Delirium due to multiple etiologies Current visit: Yes Status: Acute Assessment & Recommendation: Patient is experiencing change in mental status due to multiple factors including respiratory and metabolic disorders. There is no records or evidence of past psychiatric history of treatment. Patient may benefit from small doses of antipsychotic medication like Haldol when necessary until she is medically stable. At this time there is no acute psychiatric condition that required hospitalization. Thank you for consultation History of Present Illness Patient: new to practice Requesting Physician: Kesha Cerna MD Reason for consult: Hallucination and paranoia History of present illness: Ms. Jordan is a 80 year old female admitted to the medical service from [facility] for treatment of COPD exacerbation in addition to diabetes and renal complications and hypertension. Psychiatric consultation was requested to evaluate paranoia and hallucinations. Records review indicates no prior psychiatric history or treatment. Patient is reported to be delusional, no specific description also experiencing what would be visual hallucination. On interview patient presented as an elderly white female lying in bed, she was alert and awake and was able to answer some questions. She tells me she has been in a [facility] for the past 4 months and she does not like it, she like to be and are all in home. She told me that she has occasional nightmares but could not describe what. She also told me that she has been chocking on fluids. She is partially oriented. She denied any depression or suicidal ideation. CC: Kesha Cerna MD Past Med Surg Social Fam HX - Past Medical History Medical history: atrial fibrillation, COPD, CVA, DVT, diabetes, hypertension, pulmonary embolus, renal disease - Past Surgical History Surgical History: cholecystectomy, hysterectomy, orthopedic, other, other - Social History Smoking Status: Former smoker Smokeless Tobacco Status: No Alcohol use: none Drug use: none - Family History Mother Living Status: Age at : 81 Cause of : [place] Hx Family Cardiac Disorders: Yes Hx Family Respiratory Disorders: Yes Hx Family Endocrine Disorder: Yes Father Living Status: Age at : 75 Cause of : [place] Hx Family Cardiac Disorders: Yes Hx Family Respiratory Disorders: Yes Hx Family Cancer: No Medications & Allergies Amlodipine [Norvasc] 5 mg PO DAILY #0 05/01/15 [History] Atorvastatin Calcium [Lipitor] 20 mg PO HS #0 05/01/15 [History] Carvedilol [Coreg] 6.25 mg PO BIDWM #0 05/01/15 [History] Fluticasone/Salmeterol [Advair 500-50 Diskus] 1 puff IH BID #0 05/01/15 [ History] Ipratropium/Albuterol Neb [Duoneb] 3 ml IH QID #0 05/01/15 [History] Loperamide [Imodium] 2 mg PO Q4HR PRN #0 05/01/15 [History] Montelukast [Singulair] 10 mg PO HS #0 05/01/15 [History] Multivit/Ca/Min/Fe/FA [Thera M Plus] 1 tab PO DAILY #0 05/01/15 [History] Oxybutynin Chloride [Ditropan Xl] 15 mg PO DAILY #0 05/01/15 [History] Ranitidine HCl [Heartburn Relief] 150 mg PO BID #0 05/01/15 [History] Roflumilast [Daliresp] 500 mcg PO DAILY #0 05/01/15 [History] Sennosides [Senna] 17.2 mg PO HS PRN #0 05/01/15 [History] Tiotropium [Spiriva] 1 cap IH DAILY #0 05/01/15 [History] Vitamin E 400 unit PO DAILY #0 05/01/15 [History] Acetaminophen [Tylenol] 650 mg PO Q6H PRN 09/14/15 [History] Albuterol Sulfate [Proair Hfa] 2 puff IH Q4H PRN 09/14/15 [History] Bisacodyl [Dulcolax] 10 mg RC Q3D PRN 09/14/15 [History] Fentanyl 75 mcg TP Q72H 09/14/15 [History] Loratadine [Claritin] 10 mg PO DAILY 09/14/15 [History] Melatonin [Melatin] 3 mg PO HS PRN 09/14/15 [History] Polyethylene Glycol 3350 [MiraLAX] 17 gm PO DAILY 09/14/15 [History] Lamotrigine [Lamictal] 100 mg PO HS 30 Days 09/17/15 [Rx] Venlafaxine HCl 50 mg PO BID #30 tablet 09/17/15 [Rx] Cholecalciferol (D-3) [Vitamin D] 2,000 unit PO DAILY 03/16/16 [History] Gabapentin [Neurontin] 300 mg PO TID 03/16/16 [History] LORazepam [Ativan] 0.5 mg PO BID 03/16/16 [History] Azelastine 0.1% Nasal Gallina [Astelin] 2 spray NS BID 08/04/16 [History] Fluticasone Propionate Nasal [Flonase] 2 spray NS DAILY 08/04/16 [History] Omeprazole [PriLOSEC] 40 mg PO DAILY 08/04/16 [History] Phenyleph/Pramoxin/Glycr/W.pet [Preparation H Cream] 1 appl RC QID PRN 08/04/16 [History] Saline Nasal Gallina [Brule Nasal Gallina] 1 spray NS TID 08/04/16 [History] Amoxicillin/Clavulanate [Augmentin] 500 mg PO BIDWM #20 tablet 08/08/16 [Rx] Insulin Glargine [Lantus] 15 unit SQ HS #0 08/08/16 [Rx] OxyCODONE/APAP 5/325 [Percocet 5/325 MG] 1 each PO Q6HR PRN #20 tablet 08/08/16 [Rx] Rivaroxaban [Xarelto] 15 mg PO DAILY #0 08/08/16 [Rx] Allergies ciprofloxacin [From Cipro] Allergy (Verified 08/30/16 15:57) Hives codeine Allergy (Verified 08/30/16 15:57) Hives diphenhydramine [From Benadryl] Allergy (Verified 08/30/16 15:57) Rash levofloxacin [From Levaquin] Allergy (Verified 08/30/16 15:57) Swelling of Lip/Tongue/Throat Sulfa (Sulfonamide Antibiotics) Allergy (Verified 08/30/16 15:57) Hives Mental Status Exam Patient orientation: Yes Person, Yes Place Level of alertness: Sedated Patient appearance: Appropriate, Unkempt, Disheveled, Obese Behavior: cooperative, anxious, fearful Psychomotor activity: Slowed Eye contact: Minimal Contact Mood description: Anxious Affect description: congruent with mood, constricted Speech pattern: Normal rate, Normal rhythm, Normal tone, Disorganized Speech volume: Normal Thought process: Circumstantial, Tangential Thought content: No Suicidal ideation, No Homicidal ideation, No Overt delusions Perceptual disturbances: No Auditory hallucinations, Yes Visual hallucinations Attention span: Capable of Focused Attention Memory description: Grossly Intact, Immediate Impaired, Recent Impaired Patient reliability: Questionable Historian Intelligence estimate: Average Judgment: Limited Insight: Partial Results - Vital Signs Vital signs: Temp Pulse Resp BP Pulse Ox 97.5 F L 112 18 149/64 100 08/31/16 10:55 08/31/16 12:26 08/31/16 10:55 08/31/16 10:55 08/31/16 10:55 - Labs Labs: Laboratory Last Values WBC 11.6 K/mcL (4.3-11.1) H 08/31/16 03:53 RBC 3.76 M/mcL (3.82-4.97) L 08/31/16 03:53 Hgb 9.8 g/dL (11.5-15.4) L 08/31/16 03:53 Hct 31.5 % (35.3-44.9) L 08/31/16 03:53 MCV 83.8 fL (83.0-100.0) 08/31/16 03:53 MCH 26.1 pg (28.0-33.3) L 08/31/16 03:53 MCHC 31.1 g/dL (31.6-35.5) L 08/31/16 03:53 RDW 13.3 % (11.5-14.5) 08/31/16 03:53 Plt Count 221 K/mcL (140-400) 08/31/16 03:53 MPV 8.7 fL (9.4-12.4) L 08/31/16 03:53 Immature Gran % 1.1 % (0-4) 08/31/16 03:53 Seg Neutrophils % 88.4 % 08/31/16 03:53 Lymphocytes % 9.0 % 08/31/16 03:53 Monocytes % 1.4 % 08/31/16 03:53 Eosinophils % 0.0 % 08/31/16 03:53 Basophils % 0.1 % 08/31/16 03:53 Neutrophils # 10.2 K/mcL (1.6-8.9) H 08/31/16 03:53 Lymphocytes # 1.0 K/mcL (0.6-4.6) 08/31/16 03:53 Monocytes # 0.2 K/mcL (0.0-1.3) 08/31/16 03:53 Eosinophils # 0.0 K/mcL (0.0-0.6) 08/31/16 03:53 Basophils # 0.0 K/mcL (0.0-0.2) 08/31/16 03:53 Sodium 139 mEq/L (136-145) 08/31/16 03:53 Potassium 4.6 mEq/L (3.5-4.5) H 08/31/16 03:53 Chloride 103 mEq/L (98-109) 08/31/16 03:53 Carbon Dioxide 30 mEq/L (19-29) H 08/31/16 03:53 BUN 25 mg/dL (7-20) H 08/31/16 03:53 Creatinine 1.15 mg/dL (0.57-1.11) H 08/31/16 03:53 Est GFR ( Amer) 55 (> 60) L 08/31/16 03:53 Est GFR (Non-Af Amer) 46 (> 60) L 08/31/16 03:53 BUN/Creatinine Ratio 22 (6-26) 08/31/16 03:53 Glucose 206 mg/dL (70-99) H 08/31/16 03:53 POC Glucose 257 (58-89) H 08/31/16 10:45 Est Mean Plasma Glucose 163 mg/dl 08/30/16 22:40 Hemoglobin A1c 7.3 % (-5.6) H 08/30/16 22:40 Calculated Osmolality 298 (280-300) 08/31/16 03:53 Calcium 8.8 mg/dL (8.6-10.8) 08/31/16 03:53 Total Bilirubin 0.4 mg/dL (0.2-1.2) 08/30/16 16:09 AST 14 Units/L (5-34) 08/30/16 16:09 ALT 19 Units/L (0-55) 08/30/16 16:09 Alkaline Phosphatase 103 Units/L (38-126) 08/30/16 16:09 Troponin I 0.03 ng/mL (0-0.03) 08/31/16 03:53 B-Natriuretic Peptide 126 pg/mL (0-100) H 08/30/16 16:09 Serum Total Protein 6.7 g/dL (6.0-8.3) 08/30/16 16:09 Albumin 3.1 g/dL (3.5-5.0) L 08/30/16 16:09 Globulin 3.6 g/dL (2.4-3.5) H 08/30/16 16:09 Albumin/Globulin Ratio 0.9 (1.1-2.2) L 08/30/16 16:09 Urine Color Yellow (Yellow) 08/30/16 17:08 Urine Clarity Clear (Clear) 08/30/16 17:08 Urine pH 6.5 pH Units (5.0-8.0) 08/30/16 17:08 Ur Specific Mayer 1.009 (1.010-1.025) L 08/30/16 17:08 Urine Protein 30 mg/dL (Neg-Trace) H 08/30/16 17:08 Urine Glucose (UA) 250 mg/dL (Normal) H 08/30/16 17:08 Urine Ketones Negative mg/dL (Negative) 08/30/16 17:08 Urine Blood Negative (Negative) 08/30/16 17:08 Urine Nitrite Negative (Negative) 08/30/16 17:08 Urine Bilirubin Negative (Negative) 08/30/16 17:08 Urine Urobilinogen Normal mg/dL (Normal) 08/30/16 17:08 Ur Leukocyte Esterase Negative (Negative) 08/30/16 17:08 Urine Microscopic RBC 0-3 per hpf (0-3) 08/30/16 17:08 Urine Microscopic WBC 0-3 per hpf (0-3) 08/30/16 17:08 Ur Squamous Epith Cells Many per lpf (None-Few) H 08/30/16 17:08 Urine Bacteria None Seen per hpf (None-Few) 08/30/16 17:08 Hyaline Casts None Seen per lpf (None-Few) 08/30/16 17:08 Consult Discharge Plan - Plan Referrals: NO,PCP [Primary Care Provider] - (Patient will follow up with [facility] P[facility])
[2016-08-31] MEDS: Azithromycin 250 MG TABLET PO SCH (17:04)
[2016-08-31] MEDS: lamoTRIgine 100 MG TABLET PO SCH (20:47)
[2016-08-31] MEDS: Insulin DETEMIR 100 UNIT/ML X5UNITS SQ SCH (21:41)
[2016-09-01] MEDS: GuaiFENesin Liq 200 MG/10 ML UDC PO SCH ×6 (00:18→20:45)
[2016-09-01 03:20] LABS: Basophils % 0.1 %; Eosinophils % 0.1 %; Hematocrit 32.1 % (35.3-44.9); Immature Granulocytes % 0.8 % (0-4); Lymphocytes # 2.9 K/mcL (0.6-4.6); Lymphocytes % 18.7 %; Mean Corpuscular HGB Conc 31.2 g/dL (31.6-35.5); Mean Corpuscular Hemoglobin 26.2 pg (28.0-33.3); Mean Platelet Volume 8.8 fL (9.4-12.4); Monocytes # 1.3 K/mcL (0.0-1.3); Monocytes % 8.7 %; Platelet Count 243 K/mcL (140-400); Red Blood Count 3.82 M/mcL (3.82-4.97); Red Cell Distribution Width 13.6 % (11.5-14.5); Segmented Neutrophils % 71.6 %
[2016-09-01 03:33] LABS: Calcium 9.2 mg/dL (8.6-10.8); Phosphorous 3.9 mg/dL (2.3-4.7)
[2016-09-01] MEDS: Insulin LISPRO 300 UNITS/3 ML VIAL SQ SCH ×4 (07:55→20:44)
[2016-09-01] MEDS: Tiotropium 18 MCG inhalation IH SCH (07:56)
[2016-09-01] MEDS: Budesonide/Formoterol 160/4.5 MDI IH SCH ×2 (07:56→21:05)
[2016-09-01] MEDS: Famotidine 20 MG TABLET PO SCH ×2 (08:04→20:43)
[2016-09-01] MEDS: amLODIPine 5 MG TABLET PO SCH (08:05)
[2016-09-01] MEDS: Loratadine 10 MG TABLET PO SCH (08:05)
[2016-09-01] MEDS: predniSONE 20 MG TABLET PO SCH (08:05)
[2016-09-01] MEDS: Gabapentin 300 MG CAPSULE PO SCH ×3 (08:05→20:41)
[2016-09-01] MEDS: *HR* Rivaroxaban 15 MG TABLET PO SCH (08:05)
[2016-09-01] MEDS: *HR* LORazepam 0.5 MG TABLET PO SCH ×2 (08:05→20:43)
[2016-09-01] MEDS: Fluticasone Propionate Nasal 50 MCG/SPRAY BOTTLE NS SCH (08:06)
[2016-09-01] MEDS: *HR* FentaNYL PATCH 75 MCG PATCH TD SCH (08:06)
--- NOTE | 2016-09-01 08:54 | Internal Med Progress Note ---
Date of Encounter: 09/01/16 Time of Encounter: 08:52 - Assessment and plan (1) Paranoia (psychosis) Current Visit: Yes Status: Acute Assessment and plan: appears to be a chronic process as per the half-way reports Improves with Haldol 2mg, will continue Psych input noted and no other recommendations suggested other than Haldol prn (2) Acute exacerbation of chronic obstructive pulmonary disease (COPD) Current Visit: No Status: Acute Assessment and plan: continue systemic steroids and bronchodilator support continue IV abx patient responding well to therapy continue to monitor O2 sat O2 sat goal: 89-92% (3) Atrial fibrillation Current Visit: No Status: Chronic Assessment and plan: Rate better controlled but still tachycardic Increased Carvedilol to 12.5mg PO BID Anticoagulated with Xarelto Qualifiers: Atrial fibrillation type: chronic Qualified Code(s): I48.2 - Chronic atrial fibrillation (4) CKD (chronic kidney disease) stage 3, GFR 30-59 ml/min Current Visit: No Status: Chronic Assessment and plan: renal function at baseline continue to monitor (5) Diabetes Current Visit: No Status: Chronic Assessment and plan: increase in A1C noted Noted to be hyperglycemic throughout the day requiring 23units insulin coverage will start Levemir 10units qdaily steroid use also contributing to hyperglycemia will continue to monitor FS and BG ss insulin as needed will adjust insulin therapy as per BG readings Qualifiers: Diabetes mellitus type: type 2 Diabetes mellitus complication status: with kidney complications Diabetes mellitus complication detail: with chronic kidney disease Diabetes mellitus skilled nursing insulin use: with skilled nursing use Chronic kidney disease stage: stage 3 (moderate) Qualified Code(s): E11.22 - Type 2 diabetes mellitus with diabetic chronic kidney disease; N18.3 - Chronic kidney disease, stage 3 (moderate); Z79.4 - snf (current) use of insulin (6) DVT prophylaxis Current Visit: No Status: Acute Assessment and plan: anticoagulated with Xarelto (7) Elevated troponin Current Visit: Yes Status: Resolved (8) History of DVT (deep vein thrombosis) Current Visit: No Status: Chronic Assessment and plan: anticoagulated with Xarelto (9) HTN (hypertension) Current Visit: No Status: Chronic Assessment and plan: Noted to be hypertensive this morning despite receiving home htn medications Will increase Carvedilol to 12.5mg PO qd will closely monitor if remains hypertensive, will adjust home medications accordingly Qualifiers: Hypertension type: essential hypertension Qualified Code(s): I10 - Essential (primary) hypertension (10) Obesity Current Visit: No Status: Chronic Qualifiers: Obesity type: due to excess calories Obesity severity: non-morbid Qualified Code(s): E66.09 - Other obesity due to excess calories - Subjective Interval history: Patient seen and examined at bedside.Psych eval noted, patient was evaluated by psychiatry after receiving Haldol. It appears patient remains somewhat coherant and rational for the duration of the Haldol and returns to confused, delerious behavior with hallucinations as the medication wears off. Currently being treated for COPD exacerbation. respiratory status improving. - Constitutional Vitals: Temp Pulse Resp BP Pulse Ox 97.9 F 89 16 169/97 100 09/01/16 07:40 09/01/16 07:40 09/01/16 07:40 09/01/16 07:40 09/01/16 07:40 General appearance: Present: A&O X 1 (confused and delirious ), pleasant, no acute distress - Head Head exam: Present: atraumatic, normocephalic - Eye Eye exam: Present: normal appearance, conjuntiva pink, sclera anicteric - Respiratory Respiratory exam: Absent: respiratory distress, wheezes - Cardiovascular Cardiovascular exam: Present: RRR, +S1, +S2. Absent: diastolic murmur, gallop, rubs, systolic murmur - GI/Abdominal GI/Abdominal exam: Present: normal bowel sounds, soft, no peritoneal signs. Absent: distended, tenderness - Extremities Exam Extremities exam: Present: warm, radial pulses palpable and symetrical. Absent : calf tenderness, cyanotic, pedal edema - Neurological Exam Neurological exam: Present: alert - Psychiatric Psychiatric exam: Present: agitated, anxious Internal Medicine: Result - Labs CBC & Chem 7: 09/01/16 02:44 09/01/16 02:44 Labs: Short CBC 09/01/16 Range/Units 02:44 WBC 15.3 H (4.3-11.1) K/mcL Hgb 10.0 L (11.5-15.4) g/dL Hct 32.1 L (35.3-44.9) % Plt Count 243 (140-400) K/mcL Neutrophils # 11.0 H (1.6-8.9) K/mcL BMP 09/01/16 02:44 Sodium 141 Potassium 4.0 Chloride 104 Carbon Dioxide 31 H BUN 29 H Creatinine 1.16 H Glucose 87 Calcium 9.2 Consult Discharge Plan - Plan Referrals: NO,PCP [Primary Care Provider] - (Patient will follow up with [facility] PCP)
[2016-09-01] MEDS: Hydrocortisone Rectal 2.5% CRM 28 GM TUBE RC PRN ×2 (10:03→18:28)
[2016-09-01] MEDS: Azithromycin 250 MG TABLET PO SCH (17:20)
[2016-09-01] MEDS: Insulin DETEMIR 100 UNIT/ML X5UNITS SQ SCH (20:40)
[2016-09-01] MEDS: lamoTRIgine 100 MG TABLET PO SCH (20:43)
[2016-09-02] MEDS: GuaiFENesin Liq 200 MG/10 ML UDC PO SCH ×6 (00:03→20:38)
[2016-09-02 04:55] LABS: Basophils % 0.1 %; Eosinophils # 0.1 K/mcL (0.0-0.6); Eosinophils % 0.4 %; Hemoglobin 10.2 g/dL (11.5-15.4); Immature Granulocytes % 0.7 % (0-4); Lymphocytes # 2.9 K/mcL (0.6-4.6); Mean Corpuscular HGB Conc 30.9 g/dL (31.6-35.5); Mean Corpuscular Hemoglobin 26.1 pg (28.0-33.3); Mean Corpuscular Volume 84.4 fL (83.0-100.0); Mean Platelet Volume 8.7 fL (9.4-12.4); Monocytes # 1.2 K/mcL (0.0-1.3); Monocytes % 8.6 %; Neutrophils # 9.6 K/mcL (1.6-8.9); Platelet Count 251 K/mcL (140-400); Red Blood Count 3.91 M/mcL (3.82-4.97); Red Cell Distribution Width 13.7 % (11.5-14.5); Segmented Neutrophils % 69.2 %
[2016-09-02] MEDS: Hydrocortisone Rectal 2.5% CRM 28 GM TUBE RC PRN (05:12)
[2016-09-02 05:13] LABS: Calcium 8.9 mg/dL (8.6-10.8); Magnesium 1.9 mg/dL (1.6-2.6); Phosphorous 4.2 mg/dL (2.3-4.7); Potassium 3.8 mEq/L (3.5-4.5)
[2016-09-02] MEDS: Insulin LISPRO 300 UNITS/3 ML VIAL SQ SCH ×4 (07:41→20:49)
[2016-09-02] MEDS: Loratadine 10 MG TABLET PO SCH (08:06)
[2016-09-02] MEDS: *HR* LORazepam 0.5 MG TABLET PO SCH ×2 (08:06→20:39)
[2016-09-02] MEDS: Famotidine 20 MG TABLET PO SCH (08:06)
[2016-09-02] MEDS: predniSONE 20 MG TABLET PO SCH (08:06)
[2016-09-02] MEDS: Gabapentin 300 MG CAPSULE PO SCH ×3 (08:06→20:44)
[2016-09-02] MEDS: amLODIPine 5 MG TABLET PO SCH (08:06)
[2016-09-02] MEDS: *HR* Rivaroxaban 15 MG TABLET PO SCH (08:07)
[2016-09-02] MEDS: Insulin DETEMIR 100 UNIT/ML X5UNITS SQ SCH ×2 (08:10→20:47)
[2016-09-02] MEDS: Fluticasone Propionate Nasal 50 MCG/SPRAY BOTTLE NS SCH (08:12)
--- NOTE | 2016-09-02 09:31 | Internal Med Progress Note ---
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 (2) Acute exacerbation of chronic obstructive pulmonary disease (COPD) Current Visit: No Status: Acute Assessment and plan: continue systemic steroids and bronchodilator support continue IV abx patient responding well to therapy continue to monitor O2 sat O2 sat goal: 89-92% Discharge planning initiated, pending psychiatry evaluation (3) Atrial fibrillation Current Visit: No Status: Chronic Assessment and plan: Rate better controlled continue Carvedilol to 12.5mg PO BID Anticoagulated with Xarelto Qualifiers: Atrial fibrillation type: chronic Qualified Code(s): I48.2 - Chronic atrial fibrillation (4) CKD (chronic kidney disease) stage 3, GFR 30-59 ml/min Current Visit: No Status: Chronic Assessment and plan: renal function at baseline continue to monitor (5) Diabetes Current Visit: No Status: Chronic Assessment and plan: increase in A1C noted FS and BG within acceptable limits continue Levemir 10units qdaily steroid use also contributing to hyperglycemia will continue to monitor FS and BG ss insulin as needed will adjust insulin therapy as per BG readings Qualifiers: Diabetes mellitus type: type 2 Diabetes mellitus complication status: with kidney complications Diabetes mellitus complication detail: with chronic kidney disease Diabetes mellitus residential insulin use: with residential use Chronic kidney disease stage: stage 3 (moderate) Qualified Code(s): E11.22 - Type 2 diabetes mellitus with diabetic chronic kidney disease; N18.3 - Chronic kidney disease, stage 3 (moderate); Z79.4 - terminologist (current) use of insulin (6) DVT prophylaxis Current Visit: No Status: Acute Assessment and plan: anticoagulated with Xarelto (7) Elevated troponin Current Visit: Yes Status: Resolved (8) History of DVT (deep vein thrombosis) Current Visit: No Status: Chronic Assessment and plan: anticoagulated with Xarelto (9) HTN (hypertension) Current Visit: No Status: Chronic Assessment and plan: BP better controlled will continue current management and closely monitor BP Qualifiers: Hypertension type: essential hypertension Qualified Code(s): I10 - Essential (primary) hypertension (10) Obesity Current Visit: No Status: Chronic Qualifiers: Obesity type: due to excess calories Obesity severity: non-morbid Qualified Code(s): E66.09 - Other obesity due to excess calories - Subjective Interval history: Patient seen and examined at bedside. Resting in bed and AAO x 3 but continues to report of bodily fluid covering her and causing her severe distress. She understands that she is the only one who sees this body fluid covering her but requests for help as it is causing her severe anxiety and discomfort. - Constitutional Vitals: Temp Pulse Resp BP Pulse Ox 97.9 F 65 16 167/92 98 09/02/16 06:48 09/02/16 06:48 09/02/16 06:48 09/02/16 06:48 09/02/16 08:13 General appearance: Present: A&O X 3, pleasant, no acute distress - Head Head exam: Present: atraumatic, normocephalic - Eye Eye exam: Present: normal appearance, conjuntiva pink, sclera anicteric - Respiratory Respiratory exam: Present: CTAB. Absent: accessory muscle use, rales, rhonchi, wheezes - Cardiovascular Cardiovascular exam: Present: RRR, +S1, +S2. Absent: diastolic murmur, gallop, rubs, systolic murmur - GI/Abdominal GI/Abdominal exam: Present: normal bowel sounds, soft, no peritoneal signs. Absent: distended, tenderness - Extremities Exam Extremities exam: Present: warm, radial pulses palpable and symetrical. Absent : calf tenderness, cyanotic, pedal edema - Neurological Exam Neurological exam: Present: alert, oriented X3 - Psychiatric Psychiatric exam: Present: anxious Internal Medicine: Result - Labs CBC & Chem 7: 09/02/16 04:18 09/02/16 04:18 Labs: Short CBC 09/02/16 Range/Units 04:18 WBC 13.9 H (4.3-11.1) K/mcL Hgb 10.2 L (11.5-15.4) g/dL Hct 33.0 L (35.3-44.9) % Plt Count 251 (140-400) K/mcL Neutrophils # 9.6 H (1.6-8.9) K/mcL BMP 09/02/16 04:18 Sodium 141 Potassium 3.8 Chloride 103 Carbon Dioxide 30 H BUN 32 H Creatinine 1.22 H Glucose 73 Calcium 8.9 Consult Discharge Plan - Plan Referrals: NO,PCP [Primary Care Provider] - (Patient will follow up with [facility] PCP)
[2016-09-02] MEDS: Budesonide/Formoterol 160/4.5 MDI IH SCH (10:26)
[2016-09-02] MEDS: Tiotropium 18 MCG inhalation IH SCH (10:26)
[2016-09-02] MEDS: Azithromycin 250 MG TABLET PO SCH (17:00)
[2016-09-02] MEDS: lamoTRIgine 100 MG TABLET PO SCH (20:39)
[2016-09-03] MEDS: GuaiFENesin Liq 200 MG/10 ML UDC PO SCH ×5 (00:03→15:28)
[2016-09-03 04:59] LABS: Basophils % 0.1 %; Eosinophils # 0.1 K/mcL (0.0-0.6); Eosinophils % 0.4 %; Hemoglobin 10.2 g/dL (11.5-15.4); Immature Granulocytes % 0.5 % (0-4); Lymphocytes # 2.9 K/mcL (0.6-4.6); Lymphocytes % 24.3 %; Mean Corpuscular HGB Conc 31.9 g/dL (31.6-35.5); Mean Corpuscular Hemoglobin 26.8 pg (28.0-33.3); Mean Corpuscular Volume 84.2 fL (83.0-100.0); Mean Platelet Volume 9.1 fL (9.4-12.4); Monocytes # 1.1 K/mcL (0.0-1.3); Neutrophils # 7.9 K/mcL (1.6-8.9); Platelet Count 237 K/mcL (140-400); Red Cell Distribution Width 13.6 % (11.5-14.5); Segmented Neutrophils % 65.7 %
[2016-09-03 05:13] LABS: Calcium 8.8 mg/dL (8.6-10.8); Magnesium 2.1 mg/dL (1.6-2.6)
[2016-09-03] MEDS: Insulin LISPRO 300 UNITS/3 ML VIAL SQ SCH ×4 (07:43→21:58)
[2016-09-03] MEDS: *HR* Rivaroxaban 15 MG TABLET PO SCH (08:43)
[2016-09-03] MEDS: Gabapentin 300 MG CAPSULE PO SCH ×3 (08:43→21:59)
[2016-09-03] MEDS: predniSONE 20 MG TABLET PO SCH (08:43)
[2016-09-03] MEDS: *HR* LORazepam 0.5 MG TABLET PO SCH ×2 (08:43→22:00)
[2016-09-03] MEDS: amLODIPine 5 MG TABLET PO SCH (08:44)
[2016-09-03] MEDS: Loratadine 10 MG TABLET PO SCH (08:44)
[2016-09-03] MEDS: Insulin DETEMIR 100 UNIT/ML X5UNITS SQ SCH ×2 (08:45→22:04)
[2016-09-03] MEDS: Fluticasone Propionate Nasal 50 MCG/SPRAY BOTTLE NS SCH (08:48)
[2016-09-03] MEDS: Hydrocortisone Rectal 2.5% CRM 28 GM TUBE RC PRN (08:56)
--- NOTE | 2016-09-03 09:08 | Internal Med Progress Note ---
Date of Encounter: 09/03/16 Time of Encounter: 08:25 - Assessment and plan (1) Paranoia (psychosis) Current Visit: Yes Status: Acute Assessment and plan: appears to be a chronic process as per the long term reports Of unclear etiology as patient's respiratory status is back to baseline with improvement in all metabolic insufficiencies Leukocytosis secondary to steroid use Awaiting psych re-evaluation discontinued Haldol Start Seroquel 25mg PO BID (2) Acute exacerbation of chronic obstructive pulmonary disease (COPD) Current Visit: No Status: Acute Assessment and plan: continue systemic steroids and bronchodilator support continue abx patient responding well to therapy continue to monitor O2 sat O2 sat goal: 89-92% Discharge planning initiated, pending psychiatry evaluation (3) Atrial fibrillation Current Visit: No Status: Chronic Assessment and plan: Rate better controlled continue Carvedilol to 12.5mg PO BID Anticoagulated with Xarelto Qualifiers: Atrial fibrillation type: chronic Qualified Code(s): I48.2 - Chronic atrial fibrillation (4) CKD (chronic kidney disease) stage 3, GFR 30-59 ml/min Current Visit: No Status: Chronic Assessment and plan: renal function at baseline continue to monitor (5) Diabetes Current Visit: No Status: Chronic Assessment and plan: increase in A1C noted FS and BG within acceptable limits continue Levemir 10units qdaily steroid use also contributing to hyperglycemia will continue to monitor FS and BG ss insulin as needed will adjust insulin therapy as per BG readings Qualifiers: Diabetes mellitus type: type 2 Diabetes mellitus complication status: with kidney complications Diabetes mellitus complication detail: with chronic kidney disease Diabetes mellitus fdc insulin use: with fdc use Chronic kidney disease stage: stage 3 (moderate) Qualified Code(s): E11.22 - Type 2 diabetes mellitus with diabetic chronic kidney disease; N18.3 - Chronic kidney disease, stage 3 (moderate); Z79.4 - residential (current) use of insulin (6) DVT prophylaxis Current Visit: No Status: Acute Assessment and plan: anticoagulated with Xarelto (7) Elevated troponin Current Visit: Yes Status: Resolved (8) History of DVT (deep vein thrombosis) Current Visit: No Status: Chronic Assessment and plan: anticoagulated with Xarelto (9) HTN (hypertension) Current Visit: No Status: Chronic Assessment and plan: BP better controlled will continue current management and closely monitor BP Qualifiers: Hypertension type: essential hypertension Qualified Code(s): I10 - Essential (primary) hypertension (10) Obesity Current Visit: No Status: Chronic Qualifiers: Obesity type: due to excess calories Obesity severity: non-morbid Qualified Code(s): E66.09 - Other obesity due to excess calories - Subjective Interval history: Patient seen and examined at bedside. Continues to claim that she has nasal discharge that has covered her full face and remains anxious despite receiving Haldol. Respiratory status at baseline. Awaiting psychiatry re-evaluation and assistance with fdc antipsychotic management as patient is not responding to Haldol. - Constitutional Vitals: Temp Pulse Resp BP Pulse Ox 98.1 F 81 16 147/77 100 09/03/16 07:18 09/03/16 07:18 09/03/16 07:18 09/03/16 07:18 09/03/16 07:18 General appearance: Present: A&O X 3, no acute distress - Head Head exam: Present: atraumatic, normocephalic - Respiratory Respiratory exam: Present: CTAB. Absent: accessory muscle use, rales, rhonchi, wheezes - Cardiovascular Cardiovascular exam: Present: RRR, +S1, +S2. Absent: diastolic murmur, gallop, rubs, systolic murmur - GI/Abdominal GI/Abdominal exam: Present: normal bowel sounds, soft, no peritoneal signs. Absent: distended, tenderness - Extremities Exam Extremities exam: Present: warm, radial pulses palpable and symetrical. Absent : calf tenderness, pedal edema - Neurological Exam Neurological exam: Present: alert - Psychiatric Psychiatric exam: Present: anxious Internal Medicine: Result - Labs CBC & Chem 7: 09/03/16 04:06 09/03/16 04:06 Labs: Short CBC 09/03/16 Range/Units 04:06 WBC 12.0 H (4.3-11.1) K/mcL Hgb 10.2 L (11.5-15.4) g/dL Hct 32.0 L (35.3-44.9) % Plt Count 237 (140-400) K/mcL Neutrophils # 7.9 (1.6-8.9) K/mcL BMP 09/03/16 04:06 Sodium 141 Potassium 4.0 Chloride 103 Carbon Dioxide 31 H BUN 29 H Creatinine 1.14 H Glucose 106 H Calcium 8.8 Consult Discharge Plan - Plan Referrals: NO,PCP [Primary Care Provider] - (Patient will follow up with [facility] PCP)
--- NOTE | 2016-09-03 10:04 | Psychiatry Progress Note ---
Date of Encounter: 09/03/16 Time of Encounter: 09:30 Subjective Interval history: I received a phone call from Dr. Cerna regarding the patient's condition. She reported that she is improving in terms of respiratory and metabolic status .she continue to be occupied with some somatic delusions . Patient is not agitated or suicidal and apparently there is difficulty discharging the patient to the residential. Results - Vital Signs Vital Signs: Temp Pulse Resp BP Pulse Ox 98.1 F 81 16 147/77 100 09/03/16 07:18 09/03/16 07:18 09/03/16 07:18 09/03/16 07:18 09/03/16 07:18 - Labs Labs: Laboratory Results - last 24 hr 09/02/16 09/02/16 09/02/16 11:28 16:31 20:44 WBC RBC Hgb Hct MCV MCH MCHC RDW Plt Count MPV Immature Gran % Seg Neutrophils % Lymphocytes % Monocytes % Eosinophils % Basophils % Neutrophils # Lymphocytes # Monocytes # Eosinophils # Basophils # Sodium Potassium Chloride Carbon Dioxide BUN Creatinine Est GFR ( Amer) Est GFR (Non-Af Amer) BUN/Creatinine Ratio Glucose POC Glucose 146 H 248 H 257 H Calculated Osmolality Calcium Phosphorus Magnesium 09/03/16 09/03/16 04:06 04:06 WBC 12.0 H RBC 3.80 L Hgb 10.2 L Hct 32.0 L MCV 84.2 MCH 26.8 L MCHC 31.9 RDW 13.6 Plt Count 237 MPV 9.1 L Immature Gran % 0.5 Seg Neutrophils % 65.7 Lymphocytes % 24.3 Monocytes % 9.0 Eosinophils % 0.4 Basophils % 0.1 Neutrophils # 7.9 Lymphocytes # 2.9 Monocytes # 1.1 Eosinophils # 0.1 Basophils # 0.0 Sodium 141 Potassium 4.0 Chloride 103 Carbon Dioxide 31 H BUN 29 H Creatinine 1.14 H Est GFR ( Amer) 56 L Est GFR (Non-Af Amer) 46 L BUN/Creatinine Ratio 25 Glucose 106 H POC Glucose Calculated Osmolality 298 Calcium 8.8 Phosphorus 4.0 Magnesium 2.1 Assessment and Plan (1) Delirium due to multiple etiologies Current visit: Yes Status: Acute Plan: Continue hospitalization, Close observation, Suicide Precautions per unit protocol, Encourage participation in unit milieu, Group Therapy, Monitor sleep, Monitor appetite Additional Plan: Recommend starting patient on scheduled dose of risperidone 0.5 mg at bedtime. Discharge plan and disposition issues will be addressed by the clinical social worker. Consult Discharge Plan - Plan Referrals: NO,PCP [Primary Care Provider] - (Patient will follow up with [facility] PCP)
[2016-09-03] MEDS: risperiDONE 0.25 MG TABLET PO SCH ×2 (13:48→22:00)
[2016-09-03] MEDS: Azithromycin 250 MG TABLET PO SCH (17:47)
[2016-09-03] MEDS: lamoTRIgine 100 MG TABLET PO SCH (21:59)
[2016-09-04] MEDS: GuaiFENesin Liq 200 MG/10 ML UDC PO SCH ×4 (00:01→08:17)
[2016-09-04 04:58] LABS: Basophils % 0.1 %; Eosinophils % 0.3 %; Hematocrit 32.5 % (35.3-44.9); Hemoglobin 10.1 g/dL (11.5-15.4); Immature Granulocytes % 0.7 % (0-4); Lymphocytes # 2.5 K/mcL (0.6-4.6); Lymphocytes % 19.5 %; Mean Corpuscular HGB Conc 31.1 g/dL (31.6-35.5); Mean Corpuscular Hemoglobin 26.1 pg (28.0-33.3); Mean Platelet Volume 8.5 fL (9.4-12.4); Monocytes % 7.9 %; Neutrophils # 9.1 K/mcL (1.6-8.9); Platelet Count 231 K/mcL (140-400); Red Blood Count 3.87 M/mcL (3.82-4.97); Red Cell Distribution Width 13.5 % (11.5-14.5); Segmented Neutrophils % 71.5 %
[2016-09-04 05:15] LABS: Calcium 8.9 mg/dL (8.6-10.8); Phosphorous 4.1 mg/dL (2.3-4.7); Potassium 3.9 mEq/L (3.5-4.5)
[2016-09-04 07:01] VITALS: BP 138/69
[2016-09-04] MEDS: Gabapentin 300 MG CAPSULE PO SCH (08:01)
[2016-09-04] MEDS: *HR* LORazepam 0.5 MG TABLET PO SCH (08:03)
[2016-09-04] MEDS: amLODIPine 5 MG TABLET PO SCH (08:03)
[2016-09-04] MEDS: Loratadine 10 MG TABLET PO SCH (08:04)
[2016-09-04] MEDS: *HR* Rivaroxaban 15 MG TABLET PO SCH (08:04)
[2016-09-04] MEDS: Fluticasone Propionate Nasal 50 MCG/SPRAY BOTTLE NS SCH (08:05)
[2016-09-04] MEDS: *HR* FentaNYL PATCH 75 MCG PATCH TD SCH (08:06)
[2016-09-04] MEDS: Insulin LISPRO 300 UNITS/3 ML VIAL SQ SCH (08:17)
[2016-09-04] MEDS ORDERED: risperiDONE 0.25 MG TABLET PO SCH (09:30)
--- NOTE | 2016-09-04 09:31 | Discharge Summary ---
Date of Encounter: 09/04/16 Time of Encounter: 09:28 - Discharge Diagnosis (1) Paranoia (psychosis) Priority: Secondary Status: Chronic (2) Acute exacerbation of chronic obstructive pulmonary disease (COPD) Priority: Primary Status: Acute (3) Atrial fibrillation Priority: Secondary Status: Chronic Qualifiers: Atrial fibrillation type: chronic Qualified Code(s): I48.2 - Chronic atrial fibrillation (4) CKD (chronic kidney disease) stage 3, GFR 30-59 ml/min Priority: Secondary Status: Chronic (5) Diabetes Priority: Secondary Status: Chronic Qualifiers: Diabetes mellitus type: type 2 Diabetes mellitus complication status: with kidney complications Diabetes mellitus complication detail: with chronic kidney disease Diabetes mellitus assistant terminal manager insulin use: with skilled nursing use Chronic kidney disease stage: stage 3 (moderate) Qualified Code(s): E11.22 - Type 2 diabetes mellitus with diabetic chronic kidney disease; N18.3 - Chronic kidney disease, stage 3 (moderate); Z79.4 - penitentiary (current) use of insulin (6) DVT prophylaxis Priority: Secondary Status: Acute (7) Elevated troponin Priority: Secondary Status: Resolved (8) History of DVT (deep vein thrombosis) Priority: Secondary Status: Chronic (9) HTN (hypertension) Priority: Secondary Status: Chronic Qualifiers: Hypertension type: essential hypertension Qualified Code(s): I10 - Essential (primary) hypertension (10) Obesity Priority: Secondary Status: Chronic Qualifiers: Obesity type: due to excess calories Obesity severity: non-morbid Qualified Code(s): E66.09 - Other obesity due to excess calories - Discharge Medications Prescriptions: OxyCODONE/APAP 5/325 [Percocet 5/325 MG] 1 each PO Q6HR PRN #20 tablet PRN Reason: Pain RisperiDONE [RisperDAL] 0.5 mg PO BID #30 tablet Home Medications: Amlodipine [Norvasc] 5 mg PO DAILY #0 05/01/15 [History] Atorvastatin Calcium [Lipitor] 20 mg PO HS #0 05/01/15 [History] Fluticasone/Salmeterol [Advair 500-50 Diskus] 1 puff IH BID #0 05/01/15 [ History] Ipratropium/Albuterol Neb [Duoneb] 3 ml IH QID #0 05/01/15 [History] Loperamide [Imodium] 2 mg PO Q4HR PRN #0 05/01/15 [History] Montelukast [Singulair] 10 mg PO HS #0 05/01/15 [History] Multivit/Ca/Min/Fe/FA [Thera M Plus] 1 tab PO DAILY #0 05/01/15 [History] Oxybutynin Chloride [Ditropan Xl] 15 mg PO DAILY #0 05/01/15 [History] Ranitidine HCl [Heartburn Relief] 150 mg PO BID #0 05/01/15 [History] Roflumilast [Daliresp] 500 mcg PO DAILY #0 05/01/15 [History] Sennosides [Senna] 17.2 mg PO HS PRN #0 05/01/15 [History] Tiotropium [Spiriva] 1 cap IH DAILY #0 05/01/15 [History] Vitamin E 400 unit PO DAILY #0 05/01/15 [History] Acetaminophen [Tylenol] 650 mg PO Q6H PRN 09/14/15 [History] Albuterol Sulfate [Proair Hfa] 2 puff IH Q4H PRN 09/14/15 [History] Bisacodyl [Dulcolax] 10 mg RC Q3D PRN 09/14/15 [History] Fentanyl 75 mcg TP Q72H 09/14/15 [History] Loratadine [Claritin] 10 mg PO DAILY 09/14/15 [History] Melatonin [Melatin] 3 mg PO HS PRN 09/14/15 [History] Polyethylene Glycol 3350 [MiraLAX] 17 gm PO DAILY 09/14/15 [History] Lamotrigine [Lamictal] 100 mg PO HS 30 Days 09/17/15 [Rx] Venlafaxine HCl 50 mg PO BID #30 tablet 09/17/15 [Rx] Cholecalciferol (D-3) [Vitamin D] 2,000 unit PO DAILY 03/16/16 [History] Gabapentin [Neurontin] 300 mg PO TID 03/16/16 [History] LORazepam [Ativan] 0.5 mg PO BID 03/16/16 [History] Azelastine 0.1% Nasal [place] [Astelin] 2 spray NS BID 08/04/16 [History] Fluticasone Propionate Nasal [Flonase] 2 spray NS DAILY 08/04/16 [History] Omeprazole [PriLOSEC] 40 mg PO DAILY 08/04/16 [History] Phenyleph/Pramoxin/Glycr/W.pet [Preparation H Cream] 1 appl RC QID PRN 08/04/16 [History] Saline Nasal [place] [[place] Nasal [place]] 1 spray NS TID 08/04/16 [History] Insulin Glargine [Lantus] 15 unit SQ HS #0 08/08/16 [Rx] Rivaroxaban [Xarelto] 15 mg PO DAILY #0 08/08/16 [Rx] Carvedilol [Coreg] 12.5 mg PO BIDWM #0 09/04/16 [Rx] OxyCODONE/APAP 5/325 [Percocet 5/325 MG] 1 each PO Q6HR PRN #20 tablet 09/04/16 [Rx] RisperiDONE [RisperDAL] 0.5 mg PO BID #30 tablet 09/04/16 [Rx] Sennosides/Docusate Sodium [Senna Plus] 2 each PO BID PRN #0 tablet 09/04/16 [Rx ] Allergies/Adverse Reactions: Allergies ciprofloxacin [From Cipro] Allergy (Verified 08/30/16 15:57) Hives codeine Allergy (Verified 08/30/16 15:57) Hives diphenhydramine [From Benadryl] Allergy (Verified 08/30/16 15:57) Rash levofloxacin [From Levaquin] Allergy (Verified 08/30/16 15:57) Swelling of Lip/Tongue/Throat Sulfa (Sulfonamide Antibiotics) Allergy (Verified 08/30/16 15:57) Hives Date of admission: 08/31/16 14:26 Primary care physician: PCP NO Consults: 09/01/16 08:16 Consult to Physical Therapy [CONS] Routine Comment: Evaluate, develop and implement POC Reason for Consult: decreased mobility Discharging clinician: Kesha Cerna Anticipated date of discharge: 09/04/16 - Patient Status Disposition: Transfer SNF Condition: Fair Functional capacity at discharge: uses cane/walker Overall status at discharge: patient is back to baseline - Discharge Instructions Follow Up With: NO,PCP [Primary Care Provider] - (Patient will follow up with [facility] PCP) Additional Instructions: Please follow-up with your primary care physician within 5 days after discharge from the hospital. Due to your elevated blood pressure readings, your carvedilol dose has been increased to 12.5 mg twice a day. Please closely monitor blood pressure and take this medication as prescribed. Risperdal 0.5 mg twice a day has been added to your home medications. Please inform your primary care physician of this change. Resume all other home medications as prescribed by your primary care physician. - Diet and Activity Activity: as per physical therapy, wear oxygen at all times Diet: diabetic diet, low salt diet Hospital course: Ms. Jordan is a 80 year old female with PMH of DM, CKD, HTN, COPD on LTOT, PE/ DVT on Xarelto, Afib who was transferred from [place] for evaluation of shortness of breath. She was further admitted for COPD exacerbation. She was started on systemic steroids, abx, and bronchodilator support. She received steroids and antibiotics for total of 5 days with complete resolution of her respiratory symptoms. At this time she is saturating well on nasal cannula and is at baseline respiratory status. She was also noted to have delirium for which a psychiatric evaluation was requested. Patient continued to have visual hallucinations stating that her body is covered in sweat and nasal discharge has been causing her severe anxiety, however no such episodes were noted. As per psych, patient was started on Risperdal, with mild improvement. As per psychiatrist, this is a chronic process and no further intervention is required to change it. At this time patient is hemodynamically stable, respiratory status at baseline, and will be discharged to correction. - Time Spent with Patient Total time spent providing and/or coordinating discharge services: Greater than 30 minutes - Constitutional Vitals: Temp Pulse Resp BP Pulse Ox 98.1 F 83 18 138/69 100 09/04/16 06:55 09/04/16 06:55 09/04/16 06:55 09/04/16 06:55 09/04/16 06:55 General appearance: Present: A&O X 3, no acute distress - Head Head exam: Present: atraumatic, normocephalic - Eye Eye exam: Present: normal appearance, conjuntiva pink, sclera anicteric - Respiratory Respiratory exam: Present: CTAB. Absent: respiratory distress, wheezes - Cardiovascular Cardiovascular exam: Present: RRR, +S1, +S2. Absent: diastolic murmur, gallop, rubs, systolic murmur - GI/Abdominal GI/Abdominal exam: Present: normal bowel sounds, soft, no peritoneal signs. Absent: distended, tenderness - Extremities Exam Extremities exam: Present: warm, radial pulses palpable and symetrical. Absent : calf tenderness, cyanotic, pedal edema - Neurological Exam Neurological exam: Present: alert, oriented X3 - Psychiatric Psychiatric exam: Present: anxious
--- NOTE | 2016-09-04 09:46 | Physician Discharge Referral ---
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 (2) Acute exacerbation of chronic obstructive pulmonary disease (COPD) Priority: Primary Status: Acute (3) Atrial fibrillation Priority: Secondary Status: Chronic (4) CKD (chronic kidney disease) stage 3, GFR 30-59 ml/min Priority: Secondary Status: Chronic (5) Diabetes Priority: Secondary Status: Chronic (6) DVT prophylaxis Priority: Secondary Status: Acute (7) Elevated troponin Priority: Secondary Status: Resolved (8) History of DVT (deep vein thrombosis) Priority: Secondary Status: Chronic (9) HTN (hypertension) Priority: Secondary Status: Chronic (10) Obesity Priority: Secondary Status: Chronic - Transfer Medications Prescriptions: OxyCODONE/APAP 5/325 [Percocet 5/325 MG] 1 each PO Q6HR PRN #20 tablet PRN Reason: Pain FentaNYL PATCH [Duragesic] 75 mcg TD Q72H #2 patch.td72 RisperiDONE [RisperDAL] 0.5 mg PO BID #30 tablet Home Medications: Amlodipine [Norvasc] 5 mg PO DAILY #0 05/01/15 [History] Atorvastatin Calcium [Lipitor] 20 mg PO HS #0 05/01/15 [History] Fluticasone/Salmeterol [Advair 500-50 Diskus] 1 puff IH BID #0 05/01/15 [ History] Ipratropium/Albuterol Neb [Duoneb] 3 ml IH QID #0 05/01/15 [History] Loperamide [Imodium] 2 mg PO Q4HR PRN #0 05/01/15 [History] Montelukast [Singulair] 10 mg PO HS #0 05/01/15 [History] Multivit/Ca/Min/Fe/FA [Thera M Plus] 1 tab PO DAILY #0 05/01/15 [History] Oxybutynin Chloride [Ditropan Xl] 15 mg PO DAILY #0 05/01/15 [History] Ranitidine HCl [Heartburn Relief] 150 mg PO BID #0 05/01/15 [History] Roflumilast [Daliresp] 500 mcg PO DAILY #0 05/01/15 [History] Sennosides [Senna] 17.2 mg PO HS PRN #0 01/01/16 [History] Tiotropium [Spiriva] 1 cap IH DAILY #0 05/01/15 [History] Vitamin E 400 unit PO DAILY #0 05/01/15 [History] Acetaminophen [Tylenol] 650 mg PO Q6H PRN 09/14/15 [History] Albuterol Sulfate [Proair Hfa] 2 puff IH Q4H PRN 09/14/15 [History] Bisacodyl [Dulcolax] 10 mg RC Q3D PRN 09/14/15 [History] Fentanyl 75 mcg TP Q72H 09/14/15 [History] Loratadine [Claritin] 10 mg PO DAILY 09/14/15 [History] Melatonin [Melatin] 3 mg PO HS PRN 09/14/15 [History] Polyethylene Glycol 3350 [MiraLAX] 17 gm PO DAILY 09/14/15 [History] Lamotrigine [Lamictal] 100 mg PO HS 30 Days 09/17/15 [Rx] Venlafaxine HCl 50 mg PO BID #30 tablet 09/17/15 [Rx] Cholecalciferol (D-3) [Vitamin D] 2,000 unit PO DAILY 03/16/16 [History] Gabapentin [Neurontin] 300 mg PO TID 03/16/16 [History] LORazepam [Ativan] 0.5 mg PO BID 03/16/16 [History] Azelastine 0.1% Nasal [place] [Astelin] 2 spray NS BID 08/04/16 [History] Fluticasone Propionate Nasal [Flonase] 2 spray NS DAILY 08/04/16 [History] Omeprazole [PriLOSEC] 40 mg PO DAILY 08/04/16 [History] Phenyleph/Pramoxin/Glycr/W.pet [Preparation H Cream] 1 appl RC QID PRN 08/04/16 [History] Saline Nasal [place] [[place] Nasal [place]] 1 spray NS TID 08/04/16 [History] Insulin Glargine [Lantus] 15 unit SQ HS #0 08/08/16 [Rx] Rivaroxaban [Xarelto] 15 mg PO DAILY #0 08/08/16 [Rx] Carvedilol [Coreg] 12.5 mg PO BIDWM #0 09/04/16 [Rx] FentaNYL PATCH [Duragesic] 75 mcg TD Q72H #2 patch.td72 09/04/16 [Rx] OxyCODONE/APAP 5/325 [Percocet 5/325 MG] 1 each PO Q6HR PRN #20 tablet 09/04/16 [Rx] RisperiDONE [RisperDAL] 0.5 mg PO BID #30 tablet 09/04/16 [Rx] Sennosides/Docusate Sodium [Senna Plus] 2 each PO BID PRN #0 tablet 09/04/16 [Rx ] Allergies/Adverse Reactions: Allergies ciprofloxacin [From Cipro] Allergy (Verified 08/30/16 15:57) Hives codeine Allergy (Verified 08/30/16 15:57) Hives diphenhydramine [From Benadryl] Allergy (Verified 08/30/16 15:57) Rash levofloxacin [From Levaquin] Allergy (Verified 08/30/16 15:57) Swelling of Lip/Tongue/Throat Sulfa (Sulfonamide Antibiotics) Allergy (Verified 08/30/16 15:57) Hives - Respiratory Orders Oxygen / L per min (2L/min to maintain O2 89-92%) Smoking Cessation: Smoking cessation has been advised. For more information, call the [place] Tobacco Quit Line at 6-946-DPMV-NOW. - Rehabiliation Orders Other: Please follow-up with your primary care physician within 5 days after discharge from the hospital. Due to your elevated blood pressure readings, your carvedilol dose has been increased to 12.5 mg twice a day. Please closely monitor blood pressure and take this medication as prescribed. Risperdal 0.5 mg twice a day has been added to your home medications. Please inform your primary care physician of this change. Resume all other home medications as prescribed by your primary care physician. CERTIFICATION: I certify that the transfer of the above named patient to an Extended Care Facility is necessary for the continuing treatment of the diagnosis listed. The above information is true and accurate reflection of patient's current condition. Confidential - Redisclosure prohibited without a patient's written consent.
== END 2016-09-04 11:38 | DRG 191 ==
LOC: 2ANU 15:55 → EMEROO 15:55 → 2ANU 17:10
PROVIDERS: ADMIT Hospitalist; ATTEND Internal Medicine

== ENCOUNTER 2016-09-11 06:45 | Inpatient (IN) ==
--- NOTE | 2016-09-11 07:29 | Emergency Department Note ---
Disposition Clinical Impression: Confusion, Elevated troponin GI bleed Qualifiers: GI bleed type/associated pathology: unspecified gastrointestinal hemorrhage type Qualified Code(s): K92.2 - Gastrointestinal hemorrhage, unspecified Transfusion reaction Qualifiers: Encounter type: initial encounter Qualified Code(s): T80.92XA - Unspecified transfusion reaction, initial encounter Anemia Qualifiers: Anemia type: unspecified type Qualified Code(s): D64.9 - Anemia, unspecified Disposition: Admitted As Inpatient Condition: Fair Altered Mental Status HPI - General Chief Complaint: ED Altered Mental Status Stated Complaint: AMS Time Seen by Provider: 09/11/16 07:15 Source: EMS Limitations: no limitations - History of Present Illness HPI Narrative: Ms. Jordan, a 80 yo female, arrives via EMS with altered mentation. Patient is unaccompanied. Unable to obtain other history due to mentation. Patient's only complaint is her bottom hurts. She moans and curses when gently rolled for examination. Spoke with [place] Bon[place]: nurse Lilibeth Rectal bleeding (into bowl of toilet, unknown description), altered mentation, low grade temp, non-productive cough, held blood thinners (xarelto) Baseline mentation is alert, oriented, able to have a normal conversation. - Related Data Home Medications Medication Instructions Recorded Confirmed Atorvastatin Calcium [Lipitor] 20 mg PO HS #0 05/01/15 08/30/16 Fluticasone/Salmeterol [Advair 1 puff IH BID #0 05/01/15 08/30/16 500-50 Diskus] Ipratropium/Albuterol Neb [Duoneb] 3 ml IH QID #0 05/01/15 08/30/16 Loperamide [Imodium] 2 mg PO Q4HR PRN #0 05/01/15 08/30/16 Montelukast [Singulair] 10 mg PO HS #0 05/01/15 08/30/16 Multivit/Ca/Min/Fe/FA [Thera M 1 tab PO DAILY #0 05/01/15 08/30/16 Plus] Oxybutynin Chloride [Ditropan Xl] 15 mg PO DAILY #0 05/01/15 08/30/16 Ranitidine HCl [Heartburn Relief] 150 mg PO BID #0 05/01/15 08/30/16 Roflumilast [Daliresp] 500 mcg PO DAILY #0 05/01/15 08/30/16 Sennosides [Senna] 17.2 mg PO HS PRN #0 05/01/15 08/30/16 Tiotropium [Spiriva] 1 cap IH DAILY #0 05/01/15 08/30/16 Vitamin E 400 unit PO DAILY #0 05/01/15 08/30/16 amLODIPine [Norvasc] 5 mg PO DAILY #0 05/01/15 08/30/16 Acetaminophen [Tylenol] 650 mg PO Q6H PRN 09/14/15 08/30/16 Albuterol Sulfate [Proair Hfa] 2 puff IH Q4H PRN 09/14/15 08/30/16 Bisacodyl [Dulcolax] 10 mg RC Q3D PRN 09/14/15 08/30/16 Loratadine [Claritin] 10 mg PO DAILY 09/14/15 08/30/16 Melatonin [Melatin] 3 mg PO HS PRN 09/14/15 08/30/16 Polyethylene Glycol 3350 [MiraLAX] 17 gm PO DAILY 09/14/15 08/30/16 fentaNYL [Fentanyl] 75 mcg TP Q72H 09/14/15 08/30/16 Cholecalciferol (D-3) [Vitamin D] 2,000 unit PO DAILY 03/16/16 08/30/16 Gabapentin [Neurontin] 300 mg PO TID 03/16/16 08/30/16 LORazepam [Ativan] 0.5 mg PO BID 03/16/16 08/30/16 Azelastine 0.1% Nasal [place] 2 spray NS BID 08/04/16 08/30/16 [Astelin] Fluticasone Propionate Nasal 2 spray NS DAILY 08/04/16 08/30/16 [Flonase] Omeprazole [PriLOSEC] 40 mg PO DAILY 08/04/16 08/30/16 Phenyleph/Pramoxin/Glycr/W.pet 1 appl RC QID PRN 08/04/16 08/30/16 [Preparation H Cream] Saline Nasal [place] [[place] Nasal 1 spray NS TID 08/04/16 08/30/16 [place]] Previous Rx's Medication Instructions Recorded Venlafaxine HCl 50 mg PO BID #30 tablet 09/17/15 lamoTRIgine [Lamictal] 100 mg PO HS 30 Days 09/17/15 Insulin Glargine [Lantus] 15 unit SQ HS #0 08/08/16 Rivaroxaban [Xarelto] 15 mg PO DAILY #0 08/08/16 Carvedilol [Coreg] 12.5 mg PO BIDWM #0 09/04/16 FentaNYL PATCH [Duragesic] 75 mcg TD Q72H #2 patch.td72 09/04/16 OxyCODONE/APAP 5/325 [Percocet 1 each PO Q6HR PRN #20 tablet 09/04/16 5/325 MG] Sennosides/Docusate Sodium [Senna 2 each PO BID PRN #0 tablet 09/04/16 Plus] risperiDONE [RisperDAL] 0.5 mg PO BID #30 tablet 09/04/16 Allergies Allergy/AdvReac Type Severity Reaction Status Date / Time ciprofloxacin [From Cipro] Allergy Hives Verified 08/30/16 15:57 codeine Allergy Hives Verified 08/30/16 15:57 diphenhydramine Allergy Rash Verified 08/30/16 15:57 [From Benadryl] levofloxacin [From Levaquin] Allergy Swelling Verified 08/30/16 15:57 of Lip/Tongue/Throat Sulfa (Sulfonamide Allergy Hives Verified 08/30/16 15:57 Antibiotics) Limitations: ROS unobtainable due to patients medical condition Past Medical History - Past Medical History Medical history: Reports: atrial fibrillation, COPD, CVA, DVT, diabetes, hypertension, pulmonary embolus, renal disease Surgical history: Reports: cholecystectomy, hysterectomy, orthopedic, other, other Psychiatric history: Reports: anxiety - Social History Smoking Status: Former smoker Smokeless Tobacco Status: No Alcohol use: Reports: none Drug use: Reports: none Physical Exam Vital signs reviewed: Patient tachycardic. General: Patient is not alert or oriented. She is lying comfortably but in distress when moved. HEENT: No facial asymmetry. Head is normocephalic and atraumatic. PERRLA. Unable to assess extraocular motion due to patient mentation. Cardiovascular: Heart regular rate and rhythm without clicks, rubs, gallops, or murmurs. No JVD. PMI nondisplaced. Respiratory: Symmetric chest rise with poor respiratory effort. Bilateral breath sounds are clear without wheezing, crackles, or rhonchi. Abdomen: Bowel sounds present normoactive x-4 quadrants. Abdomen is soft, nondistended, and nontender. No organomegaly noted. Musculoskeletal: Unable to assess muscle strength due to patient mentation. Neuro: GCS E/V/M - 3/4/5. Unable to assess cranial nerves due to patient mentation. Skin: Fentanyl patch on patient's left shoulder. Quantity to stage I sacral decubitus ulcers present bilaterally and symmetric in the mid sacrum. Rectal condyloma wart, external hemorrhoids. Psych: Patient's affect is appropriate for situation. - General Limitations: no limitations General appearance: alert, in no apparent distress Course Course Narrative: Given patient's altered mentation without history of trauma workup for possible infectious etiology. Given reported rectal bleeding by alf as well as cognitions were also will perform FOBT, H&H, coags, type and screen. FOBT positive. Troponin 0.04-likely demand ischemia. EKG unremarkable for acute cardiac ischemia. No history of ACS. Hemoglobin 7.8. UA pending. We will transfuse 1 unit PRBC, await UA. 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 Her hemoglobin is 7.8, she has altered mentation with elevated troponin , tachycardia, and active GI bleed -go ahead and transfuse 1 unit packed red blood cells on an emergent basis. UTI obtained by straight catheter does show epithelial cells with few bacteria however no nitrites normal pH culture pending. At this time will not empirically treat for UTI. No history from [facility] of trauma. At this time will not CT head. Chest x-ray and pulmonary exam not concerning for pulmonary infection. X-ray did show indeterminate perihilar nodule. Patient is moaning incomprehensibly and does not appear to be in distress. We will provide 2 mg Haldol IV and reassess. -Patient is calmed and remains comfortable. Spoke with Dr. Carlos who agrees to accept the patient. 10:50 Patient became febrile at 100.6 within 15min of initiating PRBC. Stopped transfusion. Allergy to benadryl. Provided tylenol. Hospital protocol followed. Vital Signs Temperature 98.7 F 09/11/16 06:49 Pulse Rate 105 09/11/16 06:49 Respiratory Rate 16 09/11/16 06:49 Blood Pressure 125/87 09/11/16 06:49 O2 Sat by Pulse Oximetry 96 09/11/16 06:49 Temperature 98.7 F 09/11/16 12:31 Pulse Rate 103 09/11/16 12:31 Respiratory Rate 18 09/11/16 12:31 Blood Pressure 103/45 09/11/16 12:31 O2 Sat by Pulse Oximetry 93 09/11/16 12:31 Oxygen Delivery Oxygen Delivery Nasal Cannula Altered Mental Status - Medical Records Medical records reviewed: Yes I reviewed the patient's medical records. - Lab Data Lab results reviewed: Yes I reviewed the patient's lab results. Result diagrams: 09/11/16 07:49 09/11/16 07:49 Lab Results 09/11/16 09/11/16 09/11/16 Range/Units 07:49 07:49 07:49 WBC 9.6 (4.3-11.1) K/mcL RBC 2.96 L (3.82-4.97) M/mcL Hgb 7.8 L (11.5-15.4) g/dL Hct 25.8 L (35.3-44.9) % MCV 87.2 (83.0-100.0) fL MCH 26.4 L (28.0-33.3) pg MCHC 30.2 L (31.6-35.5) g/dL RDW 14.6 H (11.5-14.5) % Plt Count 172 (140-400) K/mcL MPV 8.7 L (9.4-12.4) fL Immature Gran % 0.4 (0-4) % Seg Neutrophils % 77.7 % Lymphocytes % 11.6 % Monocytes % 9.9 % Eosinophils % 0.3 % Basophils % 0.1 % Neutrophils # 7.5 (1.6-8.9) K/mcL Lymphocytes # 1.1 (0.6-4.6) K/mcL Monocytes # 1.0 (0.0-1.3) K/mcL Eosinophils # 0.0 (0.0-0.6) K/mcL Basophils # 0.0 (0.0-0.2) K/mcL PT 17.8 H (9.4-12.1) Seconds INR 1.6 APTT 34.5 (26.0-36.0) Seconds Sodium 139 (136-145) mEq/L Potassium 4.3 (3.5-4.5) mEq/L Chloride 106 (98-109) mEq/L Carbon Dioxide 26 (19-29) mEq/L BUN 30 H (7-20) mg/dL Creatinine 1.60 H (0.57-1.11) mg/dL Est GFR ( Amer) 38 L (> 60) Est GFR (Non-Af Amer) 31 L (> 60) BUN/Creatinine Ratio 19 (6-26) Glucose 140 H (70-99) mg/dL Calculated Osmolality 296 (280-300) Lactic Acid (0.5-2.2) mmol/L Calcium 8.3 L (8.6-10.8) mg/dL Troponin I (0-0.03) ng/mL Urine Color (Yellow) Urine Clarity (Clear) Urine pH (5.0-8.0) pH Units Ur Specific [place] (1.010-1.025) Urine Protein (Neg-Trace) mg/dL Urine Glucose (UA) (Normal) mg/dL Urine Ketones (Negative) mg/dL Urine Blood (Negative) Urine Nitrite (Negative) Urine Bilirubin (Negative) Urine Urobilinogen (Normal) mg/dL Ur Leukocyte Esterase (Negative) Urine Microscopic RBC (0-3) per hpf Urine Microscopic WBC (0-3) per hpf Ur Squamous Epith Cells (None-Few) per lpf Urine Bacteria (None-Few) per hpf Hyaline Casts (None-Few) per lpf Urine Yeast (None Seen) per hpf Ur Culture Indicated? (NO) Stool Occult Blood (Negative) Blood Type Antibody Screen Crossmatch 09/11/16 09/11/16 09/11/16 Range/Units 07:49 07:49 07:49 WBC (4.3-11.1) K/mcL RBC (3.82-4.97) M/mcL Hgb (11.5-15.4) g/dL Hct (35.3-44.9) % MCV (83.0-100.0) fL MCH (28.0-33.3) pg MCHC (31.6-35.5) g/dL RDW (11.5-14.5) % Plt Count (140-400) K/mcL MPV (9.4-12.4) fL Immature Gran % (0-4) % Seg Neutrophils % % Lymphocytes % % Monocytes % % Eosinophils % % Basophils % % Neutrophils # (1.6-8.9) K/mcL Lymphocytes # (0.6-4.6) K/mcL Monocytes # (0.0-1.3) K/mcL Eosinophils # (0.0-0.6) K/mcL Basophils # (0.0-0.2) K/mcL PT (9.4-12.1) Seconds INR APTT (26.0-36.0) Seconds Sodium (136-145) mEq/L Potassium (3.5-4.5) mEq/L Chloride (98-109) mEq/L Carbon Dioxide (19-29) mEq/L BUN (7-20) mg/dL Creatinine (0.57-1.11) mg/dL Est GFR ( Amer) (> 60) Est GFR (Non-Af Amer) (> 60) BUN/Creatinine Ratio (6-26) Glucose (70-99) mg/dL Calculated Osmolality (280-300) Lactic Acid 0.6 (0.5-2.2) mmol/L Calcium (8.6-10.8) mg/dL Troponin I 0.04 H* (0-0.03) ng/mL Urine Color (Yellow) Urine Clarity (Clear) Urine pH (5.0-8.0) pH Units Ur Specific [place] (1.010-1.025) Urine Protein (Neg-Trace) mg/dL Urine Glucose (UA) (Normal) mg/dL Urine Ketones (Negative) mg/dL Urine Blood (Negative) Urine Nitrite (Negative) Urine Bilirubin (Negative) Urine Urobilinogen (Normal) mg/dL Ur Leukocyte Esterase (Negative) Urine Microscopic RBC (0-3) per hpf Urine Microscopic WBC (0-3) per hpf Ur Squamous Epith Cells (None-Few) per lpf Urine Bacteria (None-Few) per hpf Hyaline Casts (None-Few) per lpf Urine Yeast (None Seen) per hpf Ur Culture Indicated? (NO) Stool Occult Blood (Negative) Blood Type A POSITIVE Antibody Screen NEGATIVE Crossmatch See Detail 09/11/16 09/11/16 09/11/16 Range/Units 08:32 08:45 11:21 WBC (4.3-11.1) K/mcL RBC (3.82-4.97) M/mcL Hgb (11.5-15.4) g/dL Hct (35.3-44.9) % MCV (83.0-100.0) fL MCH (28.0-33.3) pg MCHC (31.6-35.5) g/dL RDW (11.5-14.5) % Plt Count (140-400) K/mcL MPV (9.4-12.4) fL Immature Gran % (0-4) % Seg Neutrophils % % Lymphocytes % % Monocytes % % Eosinophils % % Basophils % % Neutrophils # (1.6-8.9) K/mcL Lymphocytes # (0.6-4.6) K/mcL Monocytes # (0.0-1.3) K/mcL Eosinophils # (0.0-0.6) K/mcL Basophils # (0.0-0.2) K/mcL PT (9.4-12.1) Seconds INR APTT (26.0-36.0) Seconds Sodium (136-145) mEq/L Potassium (3.5-4.5) mEq/L Chloride (98-109) mEq/L Carbon Dioxide (19-29) mEq/L BUN (7-20) mg/dL Creatinine (0.57-1.11) mg/dL Est GFR ( Amer) (> 60) Est GFR (Non-Af Amer) (> 60) BUN/Creatinine Ratio (6-26) Glucose (70-99) mg/dL Calculated Osmolality (280-300) Lactic Acid (0.5-2.2) mmol/L Calcium (8.6-10.8) mg/dL Troponin I (0-0.03) ng/mL Urine Color Yellow Yellow (Yellow) Urine Clarity Slightly Hazy Clear (Clear) Urine pH 5.0 5.0 (5.0-8.0) pH Units Ur Specific [place] 1.018 1.017 (1.010-1.025) Urine Protein 30 H 30 H (Neg-Trace) mg/dL Urine Glucose (UA) Normal Normal (Normal) mg/dL Urine Ketones Negative Negative (Negative) mg/dL Urine Blood Negative Trace H (Negative) Urine Nitrite Negative Negative (Negative) Urine Bilirubin Negative Negative (Negative) Urine Urobilinogen Normal Normal (Normal) mg/dL Ur Leukocyte Esterase Small H Small H (Negative) Urine Microscopic RBC 0-3 0-3 (0-3) per hpf Urine Microscopic WBC 5-15 H 5-15 H (0-3) per hpf Ur Squamous Epith Cells Many H Few (None-Few) per lpf Urine Bacteria Few Few (None-Few) per hpf Hyaline Casts Few (None-Few) per lpf Urine Yeast Few H Moderate H (None Seen) per hpf Ur Culture Indicated? YES A (NO) Stool Occult Blood Positive A (Negative) Blood Type Antibody Screen Crossmatch - EKG Data EKG attestation: Yes I reviewed and interpreted this EKG. EKG results narrative: EKG dated 1419 2016 at 07:02 interpreted as sinus tachycardia with a rate of 6. VT 172, QRS 110, QT/QT/279. Left axis. Incomplete right bundle branch block. Nonspecific ST-T changes. No previous EKG for comparison. Attestation Statement - Attestation Attestation: I, Bin Segura, examined this patient and my medical decision-making was reviewed with the PARTS IDENTIFIER/PA/Advanced Practice Nurse/Resident Physician. I agree with the documented findings, disposition and treatment plan as described except to the extent set forth below. History source: Patient is unable to provide information for this note. Info was gathered from the patient, hospital staff, the patient's chart. History limitations: Patient condition Medications: As per nurses note 80-year-old female brought in by EMS with concerns of altered mental status. Report from alf states the patient had a cough, is more altered today than usual. jail reports possible rectal bleeding. Patient is unable to give a history regarding her case her presentation. She is mildly tachycardic. She is afebrile. She is not hypoxic. Lungs are clear to auscultation bilaterally. Rectal exam performed by the resident was positive for occult blood. Patient's hemoglobin is 7.8 in emergency department today which is a significant drop from hemoglobin one week ago. Nurse tried multiple times in attempt to obtain permission to transfuse blood from family members. Unable to contact family members during the ED stay. After an hour I felt the need for transfusion was emergent due to patient's tachycardia, altered mental status, active GI bleeding, elevated troponin. Transfusion was started and the patient started to have a febrile reaction within the first 10 minutes. Blood was stopped, the patient was given Tylenol and she was monitored afterwards. Repeat x-ray did not show change in the appearance of the chest. Patient will be admitted to the hospital for further care and evaluation.
[2016-09-11 07:58] LABS: Basophils % 0.1 %; Eosinophils % 0.3 %; Hematocrit 25.8 % (35.3-44.9); Immature Granulocytes % 0.4 % (0-4); Lymphocytes # 1.1 K/mcL (0.6-4.6); Lymphocytes % 11.6 %; Mean Corpuscular HGB Conc 30.2 g/dL (31.6-35.5); Mean Corpuscular Hemoglobin 26.4 pg (28.0-33.3); Mean Corpuscular Volume 87.2 fL (83.0-100.0); Mean Platelet Volume 8.7 fL (9.4-12.4); Monocytes % 9.9 %; Neutrophils # 7.5 K/mcL (1.6-8.9); Platelet Count 172 K/mcL (140-400); Red Blood Count 2.96 M/mcL (3.82-4.97); Red Cell Distribution Width 14.6 % (11.5-14.5); Segmented Neutrophils % 77.7 %
[2016-09-11 08:07] LABS: Hemoglobin 7.8 g/dL (11.5-15.4)
[2016-09-11 08:10] LABS: INR 1.6; Prothrombin Time 17.8 Seconds (9.4-12.1)
[2016-09-11 08:11] LABS: Calcium 8.3 mg/dL (8.6-10.8); Potassium 4.3 mEq/L (3.5-4.5)
[2016-09-11 08:12] LABS: Activated Partial Thrombo Time 34.5 Seconds (26.0-36.0)
[2016-09-11 08:51] LABS: Bilirubin,Urine Negative (Negative); Blood,Urine Negative (Negative); Color,Urine Yellow (Yellow); Glucose,Urine (UA) Normal (Normal); Ketones,Urine Negative (Negative); Leukocyte Esterase,Urine Small (Negative); Nitrite,Urine Negative (Negative); Protein,Urine 30 mg/dL (Neg-Trace); Specific Gravity,Urine 1.018 (1.010-1.025); Urobilinogen,Urine Normal (Normal)
[2016-09-11 08:54] LABS: Hyaline Casts,Urine Few per lpf (None-Few); RBC,Urine 0-3 per hpf (0-3); Squamous Epithelial Cell,Urine Many per lpf (None-Few)
[2016-09-11 08:55] LABS: Clarity,Urine Slightly Hazy (Clear)
[2016-09-11 09:03] LABS: Bacteria,Urine Few per hpf (None-Few); Yeast,Urine Few per hpf (None Seen)
[2016-09-11] MEDS ORDERED: 0.9 % Sodium Chloride 1,000 ML IVC ONE (09:36)
[2016-09-11] MEDS ORDERED: Haloperidol Lactate 5 MG/ML VIAL IVP ONE (09:59)
[2016-09-11] MEDS ORDERED: 0.9 % Sodium Chloride 250 ML ONE ×2 (10:17→16:13)
[2016-09-11] MEDS ORDERED: Naloxone 0.4 MG/ML INJ IVP PRN (10:43)
[2016-09-11] MEDS ORDERED: Acetaminophen 325 MG TABLET PO PRN (10:43)
[2016-09-11] MEDS ORDERED: Acetaminophen 325 MG TABLET PO ONE (10:56)
[2016-09-11 11:36] LABS: Bilirubin,Urine Negative (Negative); Blood,Urine Trace (Negative); Color,Urine Yellow (Yellow); Glucose,Urine (UA) Normal (Normal); Ketones,Urine Negative (Negative); Leukocyte Esterase,Urine Small (Negative); Nitrite,Urine Negative (Negative); Protein,Urine 30 mg/dL (Neg-Trace); Specific Gravity,Urine 1.017 (1.010-1.025); Urobilinogen,Urine Normal (Normal)
[2016-09-11 11:43] LABS: Clarity,Urine Clear (Clear)
[2016-09-11 11:47] LABS: Bacteria,Urine Few per hpf (None-Few); RBC,Urine 0-3 per hpf (0-3); Squamous Epithelial Cell,Urine Few per lpf (None-Few); Yeast,Urine Moderate per hpf (None Seen)
[2016-09-11 13:52] LABS: Hematocrit 23.4 % (35.3-44.9)
--- NOTE | 2016-09-11 13:56 | Internal Med History&Physical ---
Date of Encounter: 09/11/16 Time of Encounter: 13:30 Assessment and Plan (1) Altered mental status Current visit: Yes Status: Acute Acute altered mental status. Uncertain etiology. Patient does have anemia which is worse than at the time of her discharge last week. She also appears dehydrated. We will hydrate intravenously. She received 1 unit of packed red blood cell transfusion in the ER. She also had fever in the ER with no clear source of infection. Qualifiers: Altered mental status type: disorientation Qualified Code(s): R41.0 - Disorientation, unspecified (2) GI bleed Current visit: Yes Status: Acute Patient with rectal bleeding. Stool positive for occult blood. Stop Xarelto. Consult GI. Monitor blood counts closely. Qualifiers: GI bleed type/associated pathology: anorectal hemorrhage Qualified Code(s) : K62.5 - Hemorrhage of anus and rectum (3) Acute kidney injury Current visit: Yes Status: Acute Creatinine is higher than her baseline. Likely due to dehydration. We will gently hydrate and follow renal function closely. (4) Anemia Current visit: Yes Status: Chronic Acute on chronic anemia. Likely from GI bleed. We will monitor blood counts. Patient received 1 unit packed red blood cell transfusion. Qualifiers: Anemia type: other cause Other causes of anemia: acute posthemorrhagic Qualified Code(s): D62 - Acute posthemorrhagic anemia (5) CKD (chronic kidney disease) stage 3, GFR 30-59 ml/min Current visit: No Status: Chronic (6) COPD (chronic obstructive pulmonary disease) Current visit: Yes Status: Chronic Will treat with bronchodilator nebs as needed. O2 supplementation as needed Qualifiers: COPD type: unspecified COPD Qualified Code(s): J44.9 - Chronic obstructive pulmonary disease, unspecified (7) DM (diabetes mellitus), type 2 with renal complications Current visit: Yes Status: Chronic Monitor blood sugars. Sliding scale insulin. Diabetic diet when patient is able to eat Qualifiers: Diabetes mellitus complication detail: with chronic kidney disease Diabetes mellitus extermination supervisor insulin use: unspecified [facility] insulin use status Chronic kidney disease stage: stage 3 (moderate) Qualified Code(s): E11.22 - Type 2 diabetes mellitus with diabetic chronic kidney disease; N18.3 - Chronic kidney disease, stage 3 (moderate) Internal Medicine - H&P: HPI Chief complaint: Altered mental status Admitted From: Emergency Dept Plans for Post Hospital Care: Transfer Residential Facility History of present illness: Ms. Jordan is a 80 year old female patient with a history of COPD, atrial fibrillation on anticoagulation Xarelto, diabetes, hypertension, PE was brought into the ER with complaints of altered mental status from [facility]. The patient does not remember any of the preceding events and so the history has been obtained through review of ED records. She had just been discharged from the hospital following an admission for COPD exacerbation. At that time she had been started on Risperdal for paranoia and psychosis. At baseline, the patient is alert and oriented and is able to have a normal conversation. However she had become more confused and was more somnolent on arrival to the ER. According to the nursing staff at the longterm, she also had rectal bleeding and low-grade fever with nonproductive cough. Presently, the patient denies any pain. She is awake and that she is in the hospital. She feels hungry and thirsty. Past Med Surg Social Fam HX - Past Medical History Source: old records reviewed Medical history: atrial fibrillation, COPD, CVA, DVT, diabetes, hypertension, pulmonary embolus, renal disease Psychiatric history: anxiety - Past Surgical History Surgical History: cholecystectomy, hysterectomy, orthopedic, other, other - Social History Smoking Status: Former smoker Smokeless Tobacco Status: No Alcohol use: none Drug use: none - Family History Mother Living Status: Hx Family Cardiac Disorders: Yes Hx Family Respiratory Disorders: Yes Hx Family Endocrine Disorder: Yes Father Living Status: Hx Family Cardiac Disorders: Yes Hx Family Respiratory Disorders: Yes Hx Family Cancer: No Internal Medicine - H&P: Meds Atorvastatin Calcium [Lipitor] 20 mg PO HS #0 05/01/15 [History] Fluticasone/Salmeterol [Advair 500-50 Diskus] 1 puff IH BID #0 05/01/15 [ History] Ipratropium/Albuterol Neb [Duoneb] 3 ml IH QID #0 05/01/15 [History] Loperamide [Imodium] 2 mg PO Q4HR PRN #0 05/01/15 [History] Montelukast [Singulair] 10 mg PO HS #0 05/01/15 [History] Multivit/Ca/Min/Fe/FA [Thera M Plus] 1 tab PO DAILY #0 05/01/15 [History] Oxybutynin Chloride [Ditropan Xl] 15 mg PO DAILY #0 05/01/15 [History] Ranitidine HCl [Heartburn Relief] 150 mg PO BID #0 05/01/15 [History] Roflumilast [Daliresp] 500 mcg PO DAILY #0 05/01/15 [History] Sennosides [Senna] 17.2 mg PO HS PRN #0 05/01/15 [History] Tiotropium [Spiriva] 1 cap IH DAILY #0 05/01/15 [History] Vitamin E 400 unit PO DAILY #0 05/01/15 [History] amLODIPine [Norvasc] 5 mg PO DAILY #0 05/01/15 [History] Acetaminophen [Tylenol] 650 mg PO Q6H PRN 09/14/15 [History] Albuterol Sulfate [Proair Hfa] 2 puff IH Q4H PRN 09/14/15 [History] Bisacodyl [Dulcolax] 10 mg RC Q3D PRN 09/14/15 [History] Loratadine [Claritin] 10 mg PO DAILY 09/14/15 [History] Melatonin [Melatin] 3 mg PO HS PRN 09/14/15 [History] Polyethylene Glycol 3350 [MiraLAX] 17 gm PO DAILY 09/14/15 [History] fentaNYL [Fentanyl] 75 mcg TP Q72H 09/14/15 [History] Venlafaxine HCl 50 mg PO BID #30 tablet 09/17/15 [Rx] lamoTRIgine [Lamictal] 100 mg PO HS 30 Days 09/17/15 [Rx] Cholecalciferol (D-3) [Vitamin D] 2,000 unit PO DAILY 03/16/16 [History] Gabapentin [Neurontin] 300 mg PO TID 03/16/16 [History] LORazepam [Ativan] 0.5 mg PO BID 03/16/16 [History] Azelastine 0.1% Nasal [place] [Astelin] 2 spray NS BID 08/04/16 [History] Fluticasone Propionate Nasal [Flonase] 2 spray NS DAILY 08/04/16 [History] Omeprazole [PriLOSEC] 40 mg PO DAILY 08/04/16 [History] Phenyleph/Pramoxin/Glycr/W.pet [Preparation H Cream] 1 appl RC QID PRN 08/04/16 [History] Saline Nasal [place] [[place] Nasal [place]] 1 spray NS TID 08/04/16 [History] Insulin Glargine [Lantus] 15 unit SQ HS #0 08/08/16 [Rx] Rivaroxaban [Xarelto] 15 mg PO DAILY #0 08/08/16 [Rx] Carvedilol [Coreg] 12.5 mg PO BIDWM #0 09/04/16 [Rx] FentaNYL PATCH [Duragesic] 75 mcg TD Q72H #2 patch.td72 09/04/16 [Rx] OxyCODONE/APAP 5/325 [Percocet 5/325 MG] 1 each PO Q6HR PRN #20 tablet 09/04/16 [Rx] Sennosides/Docusate Sodium [Senna Plus] 2 each PO BID PRN #0 tablet 09/04/16 [Rx ] risperiDONE [RisperDAL] 0.5 mg PO BID #30 tablet 09/04/16 [Rx] Allergies ciprofloxacin [From Cipro] Allergy (Verified 08/30/16 15:57) Hives codeine Allergy (Verified 08/30/16 15:57) Hives diphenhydramine [From Benadryl] Allergy (Verified 08/30/16 15:57) Rash levofloxacin [From Levaquin] Allergy (Verified 08/30/16 15:57) Swelling of Lip/Tongue/Throat Sulfa (Sulfonamide Antibiotics) Allergy (Verified 08/30/16 15:57) Hives All Systems PM: A 10-system review of systems was performed and is negative for pertinent findings except as documented above in the HPI. - Constitutional Constitutional: no chills, no fever(s), no night sweats - EENT Eyes: no change in vision, no discharge, no pain, no photophobia Ears: no ear discharge, no ear pain, no tinnitus Nose, mouth and throat: no dysphagia, no nasal discharge, no neck pain, no sore throat - Cardiovascular Cardiovascular ROS IM: no chest pain, no diaphoresis, no dyspnea, no lightheadedness, no palpitations, no syncope - Respiratory Respiratory: no cough, no dyspnea, no wheezing, no excessive phlegm production - Gastrointestinal Gastrointestinal: hematochezia, no abdominal pain, no diarrhea, no hematemesis, no melena, no nausea, no vomiting - Genitourinary Genitourinary: no change in urinary stream, no dysuria, no flank pain, no hematuria - Musculoskeletal Musculoskeletal ROS IM: no numbness, no tingling - Integumentary Integumentary IM: no rash, no unusual bruising - Neurological Neurological ROS: confusion, no convulsions, no focal weakness, no numbness, no tingling, no tremor(s) - Hematologic/Lymphatic Hematologic/Lymphatic: no easy bruising - Constitutional Vitals: Temp Pulse Resp BP Pulse Ox 98.7 F 103 18 103/45 93 09/11/16 12:31 09/11/16 12:31 09/11/16 12:31 09/11/16 12:31 09/11/16 12:31 General appearance: Present: cooperative, A&O X 1, mild distress, answers questions appropriately - Eye Eye exam: Present: PERRL, conjuntiva pink, sclera anicteric - ENT ENT exam: Present: mucous membranes dry - Neck Neck exam general surgery: Present: supple, trachea midline. Absent: lymphadenopathy - Respiratory Respiratory exam: Present: prolonged expiratory phase. Absent: accessory muscle use, rales, rhonchi, wheezes - Cardiovascular Cardiovascular exam: Present: RRR, +S1, +S2. Absent: diastolic murmur, gallop, rubs, systolic murmur - GI/Abdominal GI/Abdominal exam: Present: normal bowel sounds, soft, no peritoneal signs. Absent: distended, tenderness - Neurological Exam Neurological exam: Present: alert, no focal deficits. Absent: facial droop, speech deficit - Skin Skin exam: Present: dry, intact, pallor Internal Med - H&P Results - Labs CBC & Chem 7: 09/11/16 07:49 09/11/16 07:49 - Impressions Impressions Chest X-Ray 09/11/16 07:29 IMPRESSION: 1. Chronic airways disease. 2. Indeterminate left parahilar nodule. Chest CT correlation is indicated. D/ / 09/11/2016 08:28:37 Eulalio Flores MD / javier Interpreting Provider: Eulalio Flores MD Head CT 09/11/16 07:32 IMPRESSION: No acute intracranial abnormality. Mild cerebral atrophy appropriate for age. Severe chronic ischemic white matter changes also appropriate for age. 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 No significant change in the appearance of the brain since the prior study. D/ / Hussain Nicole MD / Hussain Nicole MD Interpreting Provider: Hussain Nicole MD Chest X-Ray 09/11/16 10:49 IMPRESSION: Stable appearance of the chest. No evidence of acute cardiopulmonary disease. D/ / Ivan Gamble MD / Ivan Gamble MD Interpreting Provider: Ivan Gamble MD - Attending Attestation This document has been at least partially created by [employer] recognition technology by Dr. Carlos. Errors in grammar, wording or other phrases may exist. If errors are found after the documentation is signed, they will be addressed individually in the addendum section of this document when appropriate.
[2016-09-11] MEDS ORDERED: D5% in Water 1,000 ML IVC PRN (14:04)
[2016-09-11] MEDS ORDERED: Dextrose Gel 15 GM PO PRN ×2 (14:04)
[2016-09-11] MEDS ORDERED: *HR* Dextrose 50 % in Water (Syg) 50 ML SYRINGE IVP PRN (14:04)
[2016-09-11] MEDS: 0.9 % Sodium Chloride 1,000 ML IVC SCH (15:30)
[2016-09-11] MEDS: Insulin LISPRO 300 UNITS/3 ML VIAL SQ SCH ×2 (16:43→21:27)
[2016-09-11] MEDS ORDERED: NON-FORMULARY MEDICATION 1 EACH EACH (Glucagon,Human Recombinant [Glucagen] 1 MG) IJ PRN (16:46)
[2016-09-11] MEDS ORDERED: Preparation H Ointment 30 GM TUBE RC PRN (16:46)
[2016-09-11] MEDS ORDERED: Bisacodyl 10 MG RECTAL SUPPOSITORY RC PRN (16:46)
[2016-09-11] MEDS: Pantoprazole 40 MG VIAL IVP SCH (16:59)
[2016-09-11] MEDS: risperiDONE 0.25 MG TABLET PO SCH (18:03)
[2016-09-11 20:39] LABS: Hematocrit 29.7 % (35.3-44.9); Hemoglobin 9.1 g/dL (11.5-15.4)
[2016-09-11] MEDS: Budesonide/Formoterol 160/4.5 MDI IH SCH (20:40)
[2016-09-11] MEDS: Gabapentin 300 MG CAPSULE PO SCH (21:27)
[2016-09-11] MEDS: lamoTRIgine 100 MG TABLET PO SCH (21:27)
[2016-09-11] MEDS: *HR* LORazepam 0.5 MG TABLET PO SCH (21:27)
[2016-09-11] MEDS: Azelastine 0.1% Nasal Spray 30 ML BOTTLE NS SCH (21:27)
[2016-09-11] MEDS: Famotidine 20 MG TABLET PO SCH (21:27)
[2016-09-11] MEDS: Insulin DETEMIR 100 UNIT/ML X5UNITS SQ SCH (21:31)
[2016-09-12] MEDS: Ipratropium/Albuterol Neb 3 ML IH PRN (02:21)
[2016-09-12] MEDS: 0.9 % Sodium Chloride 1,000 ML IVC SCH ×2 (04:27→17:10)
[2016-09-12 05:12] LABS: Basophils % 0.1 %; Hematocrit 26.5 % (35.3-44.9); Hemoglobin 8.2 g/dL (11.5-15.4); Immature Granulocytes % 1.2 % (0-4); Immature Platelets 2.1 % (1.1-6.1); Lymphocytes # 1.1 K/mcL (0.6-4.6); Lymphocytes % 12.3 %; Mean Corpuscular HGB Conc 30.9 g/dL (31.6-35.5); Mean Corpuscular Volume 87.2 fL (83.0-100.0); Mean Platelet Volume 9.4 fL (9.4-12.4); Monocytes # 0.8 K/mcL (0.0-1.3); Monocytes % 8.3 %; Neutrophils # 7.1 K/mcL (1.6-8.9); Platelet Count 182 K/mcL (140-400); Red Blood Count 3.04 M/mcL (3.82-4.97); Red Cell Distribution Width 14.6 % (11.5-14.5); Segmented Neutrophils % 78.1 %
[2016-09-12] MEDS: Pantoprazole 40 MG VIAL IVP SCH ×2 (05:31→17:08)
[2016-09-12] MEDS: Budesonide/Formoterol 160/4.5 MDI IH SCH ×2 (07:52→20:54)
[2016-09-12] MEDS: Tiotropium 18 MCG inhalation IH SCH (07:52)
[2016-09-12] MEDS: Azelastine 0.1% Nasal Spray 30 ML BOTTLE NS SCH ×2 (08:47→22:38)
[2016-09-12] MEDS: Insulin LISPRO 300 UNITS/3 ML VIAL SQ SCH ×4 (08:47→22:35)
[2016-09-12] MEDS: *HR* LORazepam 0.5 MG TABLET PO SCH ×2 (08:48→22:20)
[2016-09-12] MEDS: Cholecalciferol (D-3) 1,000 UNIT TABLET PO SCH (08:48)
[2016-09-12] MEDS: risperiDONE 1 MG TABLET PO SCH (08:48)
[2016-09-12] MEDS: Fluticasone Propionate Nasal 50 MCG/SPRAY BOTTLE NS SCH (08:48)
[2016-09-12] MEDS: Gabapentin 300 MG CAPSULE PO SCH ×3 (08:48→22:20)
[2016-09-12] MEDS: amLODIPine 5 MG TABLET PO SCH (08:49)
[2016-09-12] MEDS: Multivit/Ca/Min/Fe/FA 1 TAB TABLET PO SCH (08:49)
[2016-09-12] MEDS: Famotidine 20 MG TABLET PO SCH (08:49)
[2016-09-12] MEDS: Loratadine 10 MG TABLET PO SCH (08:49)
[2016-09-12] MEDS: DALIRESP 500 MCG PO SCH (08:50)
[2016-09-12 11:01] LABS: INR 1.2; Prothrombin Time 12.8 Seconds (9.4-12.1)
--- NOTE | 2016-09-12 12:29 | Gastroenterology Consult Note ---
<MartinezPepe quintero Geovanna - Last Filed: 09/12/16 12:27> Date of Encounter: 09/12/16 Time of Encounter: 11:05 - Assessment and plan (1) Anemia Current Visit: Yes Status: Chronic Assessment and plan: Hgb 7.8 on admission which did drop to 75/14. Hgb 8.2 this morning. Continue to monitor CBC and transfuse PRBC as needed. Plan to complete colonoscopy tomorrow. Clear liquid diet today, no red or purple. NPO at midnight. If unable tolerate NuLytely please use MiraLAX prep. If not clear by 6 AM, give 2 tap water enemas. Power of corporate associate attorney at bedside and consent obtained. Qualifiers: Anemia type: other cause Other causes of anemia: acute posthemorrhagic Qualified Code(s): D62 - Acute posthemorrhagic anemia (2) GI bleed Current Visit: Yes Status: Acute Assessment and plan: As above. Qualifiers: GI bleed type/associated pathology: anorectal hemorrhage Qualified Code(s) : K62.5 - Hemorrhage of anus and rectum (3) Altered mental status Current Visit: Yes Status: Acute Assessment and plan: Management per primary team. Qualifiers: Altered mental status type: disorientation Qualified Code(s): R41.0 - Disorientation, unspecified (4) COPD (chronic obstructive pulmonary disease) Current Visit: Yes Status: Chronic Assessment and plan: Management per primary team. Qualifiers: COPD type: unspecified COPD Qualified Code(s): J44.9 - Chronic obstructive pulmonary disease, unspecified - Time Spent With Patient Total time spent is greater than 50% in coordination of care (as documented) at patient's floor/unit and/or counseling patient: GI History of Present Illness - Data of Consult Patient: new to practice Consult date: 09/12/16 Requesting Physician: Stephani Carlos MD - Consult Narrative Reason for consult: GI Bleed History of present illness: Ms. Jordan is a 80 year old female with PMHx of Afib on Xarelto, COPD, DM, HTN, PE was brought into the ER with complaints of altered mental status from [facility]. The patient does not keep her eyes open for more than 1-2 seconds and does not respond verbally, and so the history has been obtained through review of medical records and from POA at bedside. She had just been discharged from the hospital following an admission for COPD exacerbation. At that time she had been started on Risperdal for paranoia and psychosis. At baseline, the patient is alert and oriented and is able to have a normal conversation. However she had become more confused and was more somnolent on arrival to the ER. According to the nursing staff at the [facility], she also had rectal bleeding and low-grade fever with nonproductive cough. POA at bedside states that the pt has had a long history of GI bleeding, and has had several scopes that never showed source of bleeding. Procedures: Per POA, pt has had several scopes that never showed source of bleeding. NSAIDs: None Anticoagulation: Xarelto Past Med Surg Social Fam HX - Past Medical History Medical history: atrial fibrillation, COPD, CVA, DVT, diabetes, hypertension, pulmonary embolus, renal disease Psychiatric history: anxiety - Past Surgical History Surgical History: cholecystectomy, hysterectomy, orthopedic, other, other - Social History Smoking Status: Former smoker Smokeless Tobacco Status: No Alcohol use: none Drug use: none - Family History Mother Living Status: Hx Family Cardiac Disorders: Yes Hx Family Respiratory Disorders: Yes Hx Family Endocrine Disorder: Yes Father Living Status: Hx Family Cardiac Disorders: Yes Hx Family Respiratory Disorders: Yes Hx Family Cancer: No ROS unobtainable: due to mental status - Constitutional Vitals: Temp Pulse Resp BP Pulse Ox 98.6 F 74 20 98/75 93 09/12/16 11:06 09/12/16 11:06 09/12/16 11:06 09/12/16 11:06 09/12/16 11:06 General appearance: Present: A&O X 0. Absent: answers questions appropriately - Head Head exam: Present: atraumatic, normocephalic - Eye Eye exam: Present: normal appearance, sclera anicteric - ENT ENT exam: Present: mucous membranes dry - Neck Neck exam general surgery: Present: normal inspection, trachea midline - Respiratory Respiratory exam: Present: decreased breath sounds, CTAB - Cardiovascular Cardiovascular exam: Present: RRR, +S1, +S2 - GI/Abdominal GI/Abdominal exam: Present: soft, no peritoneal signs. Absent: distended, firm , guarding, tenderness - Rectal Rectal exam: Present: deferred - Extremities Exam Extremities exam: Present: warm - Neurological Exam Neurological exam: Present: altered - Psychiatric Psychiatric exam: Present: normal affect, normal mood - Skin Skin exam: Present: dry, intact, normal color, warm Results - Labs CBC & Chem 7: 09/12/16 03:51 09/12/16 03:51 Labs: Last Result Calcium 8.0 mg/dL (8.6-10.8) L 09/12/16 03:51 Troponin I 0.04 ng/mL (0-0.03) H* 09/11/16 07:49 Stool Occult Blood Positive (Negative) A 09/11/16 08:45 Entire Visit Hgb 8.2 g/dL (11.5-15.4) L 09/12/16 03:51 Hct 26.5 % (35.3-44.9) L 09/12/16 03:51 PT 12.8 Seconds (9.4-12.1) H 09/12/16 10:42 - ABG ABG results: PT/INR, D-dimer PT 12.8 Seconds (9.4-12.1) H 09/12/16 10:42 Consult Discharge Plan - Plan Referrals: Tavares Johansen MD [Primary Care Provider] - <Eduar Delarosa - Last Filed: 09/12/16 18:29> Date of Encounter: 09/12/16 Time of Encounter: 17:00 - Time Spent With Patient Total time spent is greater than 50% in coordination of care (as documented) at patient's floor/unit and/or counseling patient: GI History of Present Illness - Data of Consult Requesting Physician: Stephani Carlos MD - Consult Narrative History of present illness: Ms. Jordan is a 80 year old female - Constitutional Vitals: Temp Pulse Resp BP Pulse Ox 98.0 F 80 19 107/68 97 09/12/16 14:32 09/12/16 14:32 09/12/16 14:32 09/12/16 14:32 09/12/16 14:32 Results - Labs CBC & Chem 7: 09/12/16 03:51 09/12/16 03:51 Labs: Last Result Calcium 8.0 mg/dL (8.6-10.8) L 09/12/16 03:51 Troponin I 0.04 ng/mL (0-0.03) H* 09/11/16 07:49 Stool Occult Blood Positive (Negative) A 09/11/16 08:45 Entire Visit Hgb 8.2 g/dL (11.5-15.4) L 09/12/16 03:51 Hct 26.5 % (35.3-44.9) L 09/12/16 03:51 PT 12.8 Seconds (9.4-12.1) H 09/12/16 10:42 - ABG ABG results: PT/INR, D-dimer PT 12.8 Seconds (9.4-12.1) H 09/12/16 10:42 - Impressions Impressions Chest X-Ray 09/12/16 15:38 IMPRESSION: Increasing ground-glass attenuation in the bilateral lung bases with suspected small pleural effusions. Pattern may represent vascular congestion or developing pulmonary edema. D/ / Dedrick Hernandez MD / Dedrick Hernandez MD Interpreting Provider: Dedrick Hernandez MD - Attending Attestation I examined this patient and my medical decision-making was reviewed with the PHYSICIAN PEDIATRICIAN/PA/Advanced Practice Nurse/Resident Physician. I agree with the documented findings, disposition and treatment plan as described except to the extent set forth below.
--- NOTE | 2016-09-12 12:30 | Internal Med Progress Note ---
Date of Encounter: 09/12/16 Time of Encounter: 11:20 - Assessment and plan (1) Altered mental status Current Visit: Yes Status: Acute Assessment and plan: Patient is a resident at a shelter. She was just recently discharged from this facility following an admission for COPD exacerbation.. She was brought back with complaints of altered mental status and GI bleed. Per ER documentation she does not remember any of the preceding events. Her daughters at the bedside and had expressed a concern that she was upset patient had been started on Seroquel during her prior admission. She is still taking Risperdal that was started during that visit too. Normally the patient is alert and oriented and is able to have a meaningful conversation, however, today she is drowsy and arouses to verbal stimuli only briefly. According to the shelter staff she had GI bleeding and low-grade fever with nonproductive cough prior to arrival. Chest x-ray is negative for any acute cardiopulmonary disease. Head CT is negative for any acute intracranial abnormality. There is mild cerebral atrophy which is appropriate for her age and severe chronic ischemic white matter changes also appropriate for her age. There is no significant change in the appearance of the brain since the prior study. I did try to reach pts daughter/POA regarding the dose of Risperdal that is mentioned in the HPI. Did not get to speak with her. Urine with bacteria and leukocyte esterase, culture negative. Chest x-ray is negative. Continue IV hydration, monitor pt and labs. Brain MRI Fall precautions Telemetry Continuous pulse ox Oxygen titrate as needed to maintain sats greater than 92% Qualifiers: Altered mental status type: disorientation Qualified Code(s): R41.0 - Disorientation, unspecified (2) Anemia Current Visit: Yes Status: Acute Assessment and plan: This is acute on chronic anemia. Most likely due to current GI bleed. snf reports the patient had bright red bleeding from her rectum that was in the toilet when she went to the bathroom. She did receive a transfusion of 1 unit packed red cells last night hemoglobin is 8.2 today. We will continue to monitor levels. Urine was negative for blood. She is being seen by GI and will have scope tomorrow to attempt to locate the source of bleeding. Qualifiers: Anemia type: unspecified type Qualified Code(s): D64.9 - Anemia, unspecified (3) GI bleed Current Visit: Yes Status: Acute Assessment and plan: POA/daughter was in room during evaluation. She says that her mother has done this for the last 7 years. She is had multiple scopes over the years and a source of bleeding has never been located. Patient to have colonoscopy tomorrow, prep today. Qualifiers: GI bleed type/associated pathology: anorectal hemorrhage Qualified Code(s) : K62.5 - Hemorrhage of anus and rectum (4) DM (diabetes mellitus), type 2 with renal complications Current Visit: Yes Status: Chronic Assessment and plan: Nothing by mouth Sliding scale Accu-Cheks before meals and at bedtime A1c 7.2 earlier this month. Qualifiers: Diabetes mellitus complication detail: with chronic kidney disease Diabetes mellitus fci insulin use: unspecified fci insulin use status Chronic kidney disease stage: stage 3 (moderate) Qualified Code(s): E11.22 - Type 2 diabetes mellitus with diabetic chronic kidney disease; N18.3 - Chronic kidney disease, stage 3 (moderate) (5) COPD (chronic obstructive pulmonary disease) Current Visit: No Status: Acute Assessment and plan: No acute exacerbation at this time. Supplemental oxygen as needed to maintain sats greater than 92% Continue home medications. Qualifiers: COPD type: unspecified COPD Qualified Code(s): J44.9 - Chronic obstructive pulmonary disease, unspecified (6) CKD (chronic kidney disease) Current Visit: No Status: Acute Assessment and plan: Creatinine is within normal limits at 1.11 today. GFR is 48. Continue to monitor vital signs and labs Monitor blood pressure closely Avoid nephrotoxins IV hydration. Qualifiers: Chronic kidney disease stage: unspecified stage Qualified Code(s): N18.9 - Chronic kidney disease, unspecified (7) Transfusion reaction Current Visit: Yes Status: Resolved Qualifiers: Encounter type: initial encounter Qualified Code(s): T80.92XA - Unspecified transfusion reaction, initial encounter - Time Spent With Patient less than 15 minutes - Subjective Interval history: Patient is drowsy. She arouses briefly to verbal stimuli. She is able to state her name. Daughter states that her speech is not normal today. She was concerned about last time she was here she was given Seroquel which has appeared to cause her drowsiness. She was just discharged from here about a week ago. Seroquel has been stopped. The rest of her psychiatric medications remain. Patient is receiving IV hydration and did receive a transfusion last night. Hemoglobin 8.2 today. Urine culture was negative. Patient was seen by GI today. As a result has been stopped. She will begin bowel prep today for colonoscopy tomorrow. Daughter and niece at bedside answer all questions. Daughter is POA. Patient does appear to be slightly pale and sallow in appearance. We will continue to monitor labs and ensure that she is hemodynamically stable. - Constitutional Vitals: Temp Pulse Resp BP Pulse Ox 98.6 F 74 20 98/75 93 09/12/16 11:06 09/12/16 11:06 09/12/16 11:06 09/12/16 11:06 09/12/16 11:06 General appearance: Present: cooperative, A&O X 1, mild distress, obese, answers questions appropriately - Head Head exam: Present: normal inspection - Eye Eye exam: Present: normal appearance, conjuntiva pink - ENT ENT exam: Present: mucous membranes moist, normal exam, normal external ear exam - Neck Neck exam general surgery: Absent: lymphadenopathy - Respiratory Respiratory exam: Present: decreased breath sounds. Absent: accessory muscle use, stridor, wheezes - Cardiovascular Cardiovascular exam: Present: RRR, +S1, +S2. Absent: diastolic murmur, systolic murmur - Expanded Cardiovascular Exam Peripheral pulses: 1+: Dorsalis Pedis (L) PM, Dorsalis Pedis (R) PM - GI/Abdominal GI/Abdominal exam: Present: normal bowel sounds, soft, tenderness. Absent: hepatomegaly - Extremities Exam Extremities exam: Present: warm, radial pulses palpable and symetrical. Absent : pedal edema, tenderness - Neurological Exam Neurological exam: Present: altered. Absent: facial droop, speech deficit Internal Medicine: Result - Labs CBC & Chem 7: 09/12/16 03:51 09/12/16 03:51 Labs: Short CBC 09/11/16 09/11/16 09/12/16 Range/Units 13:37 20:30 03:51 WBC 9.1 (4.3-11.1) K/mcL Hgb 7.0 L 9.1 L D 8.2 L (11.5-15.4) g/dL Hct 23.4 L 29.7 L 26.5 L (35.3-44.9) % Plt Count 182 (140-400) K/mcL Neutrophils # 7.1 (1.6-8.9) K/mcL BMP 09/12/16 03:51 Sodium 137 Potassium 5.0 H Chloride 109 Carbon Dioxide 21 BUN 25 H Creatinine 1.11 Glucose 169 H Calcium 8.0 L - ABG Interpretation ABG results: PT/INR, D-dimer PT 12.8 Seconds (9.4-12.1) H 09/12/16 10:42 - VTE Documentation of Mechanical Device: Intermittent pneumatic compression device Consult Discharge Plan - Plan Referrals: Tavares Johansen MD [Primary Care Provider] -
[2016-09-12] MEDS: risperiDONE 0.25 MG TABLET PO SCH (17:08)
[2016-09-12] MEDS ORDERED: SODIUM CHLORIDE/NAHCO3/KCL/PEG 4,000 ML SOLN.RECON PO STA (21:10)
[2016-09-12] MEDS: lamoTRIgine 100 MG TABLET PO SCH (22:20)
[2016-09-12] MEDS: Insulin DETEMIR 100 UNIT/ML X5UNITS SQ SCH (22:38)
[2016-09-13 06:03] LABS: Basophils % 0.1 %; Eosinophils % 0.3 %; Hematocrit 27.3 % (35.3-44.9); Hemoglobin 8.2 g/dL (11.5-15.4); Immature Granulocytes % 0.5 % (0-4); Lymphocytes # 1.8 K/mcL (0.6-4.6); Lymphocytes % 24.9 %; Mean Corpuscular Hemoglobin 26.5 pg (28.0-33.3); Mean Corpuscular Volume 88.1 fL (83.0-100.0); Mean Platelet Volume 9.1 fL (9.4-12.4); Monocytes % 13.9 %; Neutrophils # 4.4 K/mcL (1.6-8.9); Platelet Count 168 K/mcL (140-400); Red Cell Distribution Width 14.8 % (11.5-14.5); Segmented Neutrophils % 60.3 %
[2016-09-13 06:25] LABS: Calcium 8.2 mg/dL (8.6-10.8); Potassium 4.9 mEq/L (3.5-4.5)
[2016-09-13] MEDS: Pantoprazole 40 MG VIAL IVP SCH (06:29)
[2016-09-13] MEDS: Tiotropium 18 MCG inhalation IH SCH (08:03)
[2016-09-13] MEDS: Budesonide/Formoterol 160/4.5 MDI IH SCH ×2 (08:03→20:55)
[2016-09-13] MEDS: Multivit/Ca/Min/Fe/FA 1 TAB TABLET PO SCH (08:54)
[2016-09-13] MEDS: risperiDONE 1 MG TABLET PO SCH (08:54)
[2016-09-13] MEDS: amLODIPine 5 MG TABLET PO SCH (08:54)
[2016-09-13] MEDS: *HR* LORazepam 0.5 MG TABLET PO SCH ×2 (08:55→20:02)
[2016-09-13] MEDS: Loratadine 10 MG TABLET PO SCH (08:55)
[2016-09-13] MEDS: Cholecalciferol (D-3) 1,000 UNIT TABLET PO SCH (08:55)
[2016-09-13] MEDS: Gabapentin 300 MG CAPSULE PO SCH ×2 (08:55→20:25)
[2016-09-13] MEDS ORDERED: *HR* FentaNYL PATCH 50 MCG PATCH TD SCH (09:00)
[2016-09-13] MEDS: Insulin LISPRO 300 UNITS/3 ML VIAL SQ SCH ×4 (09:09→21:00)
[2016-09-13] MEDS: DALIRESP 500 MCG PO SCH (09:10)
[2016-09-13] MEDS: Azelastine 0.1% Nasal Spray 30 ML BOTTLE NS SCH ×2 (09:14→20:24)
[2016-09-13] MEDS: Fluticasone Propionate Nasal 50 MCG/SPRAY BOTTLE NS SCH (09:14)
--- NOTE | 2016-09-13 15:26 | Internal Med Progress Note ---
Date of Encounter: 09/13/16 Time of Encounter: 09:30 - Assessment and plan (1) Altered mental status Current Visit: Yes Status: Acute Assessment and plan: Patient had previously been started on Risperdal for paranoia and psychosis. Continuing this medication at this time. We will also consult psychiatry for further recommendations. One-to-one sitter. Remains at moderate risk for complications. Qualifiers: Altered mental status type: disorientation Qualified Code(s): R41.0 - Disorientation, unspecified (2) GI bleed Current Visit: Yes Status: Acute Assessment and plan: Hemoglobin levels have remained stable. Holding Xarelto for now. Unable to complete bowel prep for colonoscopy. Discussed with GI. We will attempt bowel prep again today. If this fails, may have to hold off on workup at this time or use NG tube which patient is not likely to be amenable to. Qualifiers: GI bleed type/associated pathology: anorectal hemorrhage Qualified Code(s) : K62.5 - Hemorrhage of anus and rectum (3) Acute kidney injury Current Visit: Yes Status: Acute Assessment and plan: This has improved. Will follow renal function closely. (4) Anemia Current Visit: Yes Status: Chronic Assessment and plan: Acute on chronic. Hemoglobin levels are now stable. We will check iron levels , folic acid and B12 levels. Qualifiers: Anemia type: other cause Other causes of anemia: acute posthemorrhagic Qualified Code(s): D62 - Acute posthemorrhagic anemia (5) CKD (chronic kidney disease) stage 3, GFR 30-59 ml/min Current Visit: No Status: Chronic (6) COPD (chronic obstructive pulmonary disease) Current Visit: Yes Status: Chronic Assessment and plan: On bronchodilator nebs as needed. not in acute exacerbation. Qualifiers: COPD type: unspecified COPD Qualified Code(s): J44.9 - Chronic obstructive pulmonary disease, unspecified (7) DM (diabetes mellitus), type 2 with renal complications Current Visit: Yes Status: Chronic Assessment and plan: Well controlled blood sugars. Continue current insulin regimen Qualifiers: Diabetes mellitus complication detail: with chronic kidney disease Diabetes mellitus jail insulin use: unspecified senior controls analyst insulin use status Chronic kidney disease stage: stage 3 (moderate) Qualified Code(s): E11.22 - Type 2 diabetes mellitus with diabetic chronic kidney disease; N18.3 - Chronic kidney disease, stage 3 (moderate) (8) Congestive heart failure Current Visit: Yes Status: Suspected Assessment and plan: Chest x-ray done shows pulmonary edema. Patient is also requiring O2 supplementation. We will get 2-D echocardiogram for further evaluation. Do a trial of low-dose Lasix. Qualifiers: Congestive heart failure type: diastolic Congestive heart failure chronicity: acute Qualified Code(s): I50.31 - Acute diastolic (congestive) heart failure - Subjective Interval history: Patient continuing to have intermittent episodes of psychosis. She has pulled out her IV and is not wearing the telemetry pads. Able to calm down and redirect her. Denies any pain at this time. She does not want to go back to the long term that she came from and does not want to stay in the hospital longer. He has not had any overt melena or hematemesis. Did not take bowel prep as ordered. - Constitutional Vitals: Temp Pulse Resp BP Pulse Ox 98.9 F 95 20 132/96 96 09/13/16 14:53 09/13/16 14:53 09/13/16 14:53 09/13/16 14:53 09/13/16 14:53 General appearance: Present: cooperative, A&O X 1, mild distress, obese, answers questions appropriately - Neck Neck exam general surgery: Present: supple, trachea midline. Absent: lymphadenopathy - Respiratory Respiratory exam: Present: CTAB. Absent: accessory muscle use, rales, rhonchi, wheezes - Cardiovascular Cardiovascular exam: Present: RRR, +S1, +S2. Absent: diastolic murmur, gallop, rubs, systolic murmur - GI/Abdominal GI/Abdominal exam: Present: normal bowel sounds, soft, no peritoneal signs. Absent: distended, tenderness - Extremities Exam Extremities exam: Present: warm, radial pulses palpable and symetrical. Absent : calf tenderness, cyanotic, pedal edema - Neurological Exam Neurological exam: Present: alert, CN II-XII intact, oriented X3, no focal deficits. Absent: facial droop, speech deficit - Skin Skin exam: Present: dry, intact Internal Medicine: Result - Labs CBC & Chem 7: 09/13/16 05:49 09/13/16 05:49 Labs: Short CBC 09/13/16 Range/Units 05:49 WBC 7.3 (4.3-11.1) K/mcL Hgb 8.2 L (11.5-15.4) g/dL Hct 27.3 L (35.3-44.9) % Plt Count 168 (140-400) K/mcL Neutrophils # 4.4 (1.6-8.9) K/mcL BMP 09/13/16 05:49 Sodium 138 Potassium 4.9 H Chloride 109 Carbon Dioxide 22 BUN 22 H Creatinine 1.12 H Glucose 106 H Calcium 8.2 L - ABG Interpretation ABG results: PT/INR, D-dimer PT 12.8 Seconds (9.4-12.1) H 09/12/16 10:42 - Impressions Impressions Chest X-Ray 09/12/16 15:38 IMPRESSION: Increasing ground-glass attenuation in the bilateral lung bases with suspected small pleural effusions. Pattern may represent vascular congestion or developing pulmonary edema. D/ / Dedrick Hernandze MD / Dedrick Hernandez MD Interpreting Provider: Dedrick Hernandez MD - VTE Documentation of Mechanical Device: Intermittent pneumatic compression device Consult Discharge Plan - Plan Referrals: Tavares Johansen MD [Primary Care Provider] - - Attending Attestation This document has been at least partially created by [employer] recognition technology by Dr. Carlos. Errors in grammar, wording or other phrases may exist. If errors are found after the documentation is signed, they will be addressed individually in the addendum section of this document when appropriate.
[2016-09-13] MEDS: risperiDONE 0.25 MG TABLET PO SCH (16:35)
[2016-09-13] MEDS ORDERED: Furosemide 40 MG/4 ML VIAL IVP ONE (16:53)
[2016-09-13] MEDS: Melatonin 3 MG TABLET PO PRN (20:02)
[2016-09-13] MEDS ORDERED: Polyethylene Glycol 3350 255 GM POWDER PO ONE (20:21)
[2016-09-13] MEDS: Insulin DETEMIR 100 UNIT/ML X5UNITS SQ SCH (20:25)
[2016-09-13] MEDS: lamoTRIgine 100 MG TABLET PO SCH (20:25)
[2016-09-13] MEDS ORDERED: Haloperidol Lactate 5 MG/ML VIAL IVP ONE (21:58)
[2016-09-14] MEDS: Ipratropium/Albuterol Neb 3 ML IH PRN (07:30)
[2016-09-14] MEDS: Tiotropium 18 MCG inhalation IH SCH (07:36)
[2016-09-14] MEDS: Budesonide/Formoterol 160/4.5 MDI IH SCH (07:37)
[2016-09-14] MEDS: Loratadine 10 MG TABLET PO SCH (07:53)
[2016-09-14] MEDS: amLODIPine 5 MG TABLET PO SCH (07:53)
[2016-09-14] MEDS: Multivit/Ca/Min/Fe/FA 1 TAB TABLET PO SCH (07:53)
[2016-09-14] MEDS: Fluticasone Propionate Nasal 50 MCG/SPRAY BOTTLE NS SCH (07:53)
[2016-09-14] MEDS: risperiDONE 1 MG TABLET PO SCH (07:53)
[2016-09-14] MEDS: *HR* LORazepam 0.5 MG TABLET PO SCH (07:53)
[2016-09-14] MEDS: Gabapentin 300 MG CAPSULE PO SCH ×2 (07:53→20:17)
[2016-09-14] MEDS: Cholecalciferol (D-3) 1,000 UNIT TABLET PO SCH (07:53)
[2016-09-14] MEDS: Azelastine 0.1% Nasal Spray 30 ML BOTTLE NS SCH ×2 (07:54→20:14)
[2016-09-14] MEDS ORDERED: Furosemide 40 MG/4 ML VIAL IVP ONE (07:57)
[2016-09-14] MEDS: Insulin LISPRO 300 UNITS/3 ML VIAL SQ SCH ×5 (08:01→20:15)
--- NOTE | 2016-09-14 09:03 | Internal Med Progress Note ---
Date of Encounter: 09/14/16 Time of Encounter: 09:03 - Assessment and plan (1) Acute respiratory failure with hypoxia Current Visit: Yes Status: Acute Assessment and plan: Multifactorial, secondary to pumonary edema bronchitis, COPDE Improving with O2 y NC Continue same (2) Bronchitis Current Visit: Yes Status: Acute Assessment and plan: CXR 09/12 with PVC, pulm edema patient with cough productive of sputum and increasing O2 requirements Send sputum culture Start empiric cef/azithro Patient with allergy to levoflox Will de-escalate based on cultures (3) Altered mental status Current Visit: Yes Status: Acute Assessment and plan: Patient had previously been started on Risperdal for paranoia and psychosis. Continuing this medication at this time. D/C sitter Continue ativan Awaiting psych eval Qualifiers: Altered mental status type: disorientation Qualified Code(s): R41.0 - Disorientation, unspecified (4) Anemia Current Visit: Yes Status: Acute Assessment and plan: This is acute on chronic anemia. Most likely due to current GI bleed. senior care reports the patient had bright red bleeding from her rectum that was in the toilet when she went to the bathroom. She did receive a transfusion of 1 unit packed red cells last night hemoglobin is 8.4 today. We will continue to monitor levels. Urine was negative for blood. Patient said to not have co-operated with bowel prep Will resume pureed diet as per speech eval Continue to monitor HB Qualifiers: Anemia type: unspecified type Qualified Code(s): D64.9 - Anemia, unspecified (5) COPD (chronic obstructive pulmonary disease) Current Visit: Yes Status: Chronic Assessment and plan: Wheezing this am, with increasing O2 requirements Started on prednisone po, antibiotics for bronchitis, duonebs q4hrs Hold Symbicort and Spiriva for now Qualifiers: COPD type: unspecified COPD Qualified Code(s): J44.9 - Chronic obstructive pulmonary disease, unspecified (6) DM (diabetes mellitus), type 2 with renal complications Current Visit: Yes Status: Chronic Assessment and plan: Well controlled blood sugars. Continue current insulin regimen Qualifiers: Diabetes mellitus complication detail: with chronic kidney disease Diabetes mellitus display department manager insulin use: unspecified chcf insulin use status Chronic kidney disease stage: stage 3 (moderate) Qualified Code(s): E11.22 - Type 2 diabetes mellitus with diabetic chronic kidney disease; N18.3 - Chronic kidney disease, stage 3 (moderate) (7) Congestive heart failure Current Visit: Yes Status: Suspected Assessment and plan: Chest x-ray done shows pulmonary edema. Patient is also requiring O2 supplementation. ECHO with LVDD Normal EF Due to hypoxia, schedule daily lasix for now, monitor chem Qualifiers: Congestive heart failure type: diastolic Congestive heart failure chronicity: acute Qualified Code(s): I50.31 - Acute diastolic (congestive) heart failure (8) CKD (chronic kidney disease) Current Visit: Yes Status: Acute Assessment and plan: Creatinine stable at baseline Qualifiers: Chronic kidney disease stage: unspecified stage Qualified Code(s): N18.9 - Chronic kidney disease, unspecified (9) Atrial fibrillation Current Visit: Yes Status: Chronic Assessment and plan: rate is controlled Xarelto held due to suspected GI bleed Hb stable May restart if Hb continued to be stable Qualifiers: Atrial fibrillation type: chronic Qualified Code(s): I48.2 - Chronic atrial fibrillation (10) HTN (hypertension) Current Visit: Yes Status: Chronic Assessment and plan: Controlled Qualifiers: Hypertension type: essential hypertension Qualified Code(s): I10 - Essential (primary) hypertension - Subjective Interval history: Seen and evaluated at bedside 80 F admitted and being managed for AMS with psychosis, anemia from suspected GIB, hospital stay complicated by pulmonary edema Has no new complains Said to have had increasing O2 rerquirements overnight, at some point required 10L O2 At time of eval, saturating 96% on 4L Calm, not in distress No new complains but noted to be having cough with copious yellowish sputum, afebrile - Constitutional Vitals: Temp Pulse Resp BP Pulse Ox 97.8 F 100 20 142/68 96 09/14/16 07:53 09/14/16 07:53 09/14/16 07:53 09/14/16 07:53 09/14/16 08:00 VSS. BP-142/68, HR-93. O2 sat 97% on 4L O2 by NC Calm, not in any form of distress Alert, oriented to person only, disoriented to time and place Moves all limbs spontaneously, speech is comprehensible but sometimes slurred. No facial paralysis Chest with diffuse bibasilar wheezes, no crackles or rhonchi Heart sounds S1, S2 only, no m/g/r Abdomen: Soft, not tender, moves with respiration, BW present in all quadrants Extremities well perfused, no pedal edema Internal Medicine: Result - Labs CBC & Chem 7: 09/14/16 11:10 09/13/16 05:49 - ABG Interpretation ABG results: PT/INR, D-dimer PT 12.8 Seconds (9.4-12.1) H 09/12/16 10:42 - VTE Documentation of Mechanical Device: Intermittent pneumatic compression device Consult Discharge Plan - Plan Referrals: Tavares Johansen MD [Primary Care Provider] -
[2016-09-14] MEDS: Azithromycin 500 MG in D5% in Water 250 ML IVPB SCH (11:13)
[2016-09-14] MEDS: predniSONE 20 MG TABLET PO SCH (11:16)
[2016-09-14 11:32] LABS: Basophils % 0.1 %; Eosinophils % 0.4 %; Hematocrit 27.2 % (35.3-44.9); Hemoglobin 8.4 g/dL (11.5-15.4); Immature Granulocytes % 0.5 % (0-4); Lymphocytes # 1.5 K/mcL (0.6-4.6); Lymphocytes % 20.8 %; Mean Corpuscular HGB Conc 30.9 g/dL (31.6-35.5); Mean Corpuscular Hemoglobin 26.4 pg (28.0-33.3); Mean Corpuscular Volume 85.5 fL (83.0-100.0); Mean Platelet Volume 8.9 fL (9.4-12.4); Monocytes # 0.8 K/mcL (0.0-1.3); Monocytes % 11.2 %; Neutrophils # 4.9 K/mcL (1.6-8.9); Platelet Count 162 K/mcL (140-400); Red Blood Count 3.18 M/mcL (3.82-4.97); Red Cell Distribution Width 14.7 % (11.5-14.5)
[2016-09-14] MEDS: Ipratropium/Albuterol Neb 3 ML IH SCH ×4 (11:48→23:00)
--- NOTE | 2016-09-14 14:33 | ECHO - Doppler Report ---
Echocardiogram Name: Chrissie Jordan Date of Study: 09/14/2016 Date: 1935 Ht: 65.0 in Medical Record#: [id number] Age: 80 Wt: 199.0 lb Gender: Female BSA: 1.97 Order #: [id number] Location: [facility] Room #: 3A51 Reading Physician: Pepe Scott MD, [facility] Director Case: Renato Scott RN Ordering Physician: Stephani Carlos MD Primary Physician: Tavares Johansen MD Indications: Shortness of breath Impressions: Normal LV systolic function, LVEF 60-65%. Mild concentric left ventricular hypertrophy. Mild left ventricular diastolic dysfunction. Normal right ventricular size and function. Mildly dilated left atrium. No significant valvular dysfunction. Mild pulmonary hypertension. Estimated RVSP = 39 mmHg. Left Ventricular Wall Motion: Rest Echo Findings All wall segments showed normal motion. Findings: Study Quality * Suboptimal echo windows. ECG Findings * Normal sinus rhythm. Left Ventricle * Normal LV systolic function, LVEF 60-65%. * Normal LV chamber size. * Mild concentric left ventricular hypertrophy. * Mild left ventricular diastolic dysfunction. Right Ventricle * Normal right ventricular size and function. Left Atrium * Mildly dilated left atrium. Right Atrium * Normal right atrial size. Interatrial Septum * Aneurysmal interatrial septum. Aorta * Normally sized aortic root. Pericardium * There is a trivial pericardial effusion present. IVC * Normal IVC dimensions and inspiratory collapse. Aortic Valve * Aortic valve not well visualized. * No aortic stenosis. * No aortic regurgitation. Mitral Valve * Normal mitral valve structure. * No mitral stenosis. * Trace mitral regurgitation. Tricuspid Valve * Tricuspid valve not well visualized. * No tricuspid stenosis. * Trace tricuspid regurgitation. * Mild pulmonary hypertension. Estimated RVSP = 39 mmHg. Pulmonic Valve * Pulmonic valve not well visualized. * No pulmonic stenosis. * No pulmonic regurgitation. History Hypertension Diabetes Measurements: BP: 134/ 74 2D Normal Values RVIDd: 2.50 cm IVSd: 1.30 cm 0.6 - 1.0 cm LVIDd: 4.70 cm 3.7 - 5.6 cm LVPWd: 1.30 cm 0.6 - 1.1 cm LVIDs: 2.90 cm 1.5 - 3.6 cm AO: 3.50 cm < 4.0 cm LA volume: 68 Mitral Valve Peak E:.97 m/sec Peak A:1.56 m/sec E/A Ratio:0.6 Peak E' Lat Berry:7.91 cm/s Peak E' Med Berry:6.91 cm/s E/E' Lat Ratio:12.3 E/E' Med Ratio:14.1 Tricuspid Valve TV Regurg Peak Grad: 36.00mmHg TV Regurg Peak Berry: 3.01m/sec Updated by Pepe Scott MD, [facility] on 09/14/2016 2:27:04 PM electronically signed on 09/14/2016 2:27:39 PM with status of Final Wall Motion Coleman: 1=Normal, 2=Hypokinesis, 3=Akinesis, 4=Dyskinesis, 5=Aneurysmal, 6=Hyperkinetic, X=Not Visualized (Blank)=Missing
[2016-09-14] MEDS ORDERED: *HR* LORazepam 0.5 MG TABLET PO SCH (15:00)
[2016-09-14] MEDS: risperiDONE 0.25 MG TABLET PO SCH (16:23)
--- NOTE | 2016-09-14 16:26 | Psychiatry Progress Note ---
Date of Encounter: 09/14/16 Time of Encounter: 16:00 Subjective Interval history: Psychiatric consultation was requested to evaluate psychosis and paranoia. Patient is well known to me from previous consultation on August 31 and 09/03/2016 for similar presentation. This admission include multiple medical problems including GI bleed, anemia, diabetes, COPD etc. Review of the records indicates the patient is lethargic and sedated. Medication review showed risperidone total dose daily of 1.5 mg. My initial order was 0.5 mg at bedtime. At the time of my visits patient was alert and awake and she was getting some nursing care. Results - Vital Signs Vital Signs: Temp Pulse Resp BP Pulse Ox 99.1 F 100 18 138/88 95 09/14/16 14:58 09/14/16 14:58 09/14/16 14:58 09/14/16 14:58 09/14/16 14:58 - Labs Labs: Laboratory Results - last 24 hr 09/13/16 09/14/16 09/14/16 16:24 07:58 11:10 WBC 7.3 RBC 3.18 L Hgb 8.4 L Hct 27.2 L MCV 85.5 MCH 26.4 L MCHC 30.9 L RDW 14.7 H Plt Count 162 MPV 8.9 L Immature Gran % 0.5 Seg Neutrophils % 67.0 Lymphocytes % 20.8 Monocytes % 11.2 Eosinophils % 0.4 Basophils % 0.1 Neutrophils # 4.9 Lymphocytes # 1.5 Monocytes # 0.8 Eosinophils # 0.0 Basophils # 0.0 POC Glucose 202 H 126 H 09/14/16 11:49 WBC RBC Hgb Hct MCV MCH MCHC RDW Plt Count MPV Immature Gran % Seg Neutrophils % Lymphocytes % Monocytes % Eosinophils % Basophils % Neutrophils # Lymphocytes # Monocytes # Eosinophils # Basophils # POC Glucose 259 H - Impressions ITS Impressions Chest X-Ray 09/12/16 15:38 IMPRESSION: Increasing ground-glass attenuation in the bilateral lung bases with suspected small pleural effusions. Pattern may represent vascular congestion or developing pulmonary edema. D/ / Dedrick Hernandez MD / Dedrick Hernandez MD Interpreting Provider: Dedrick Hernandez MD Assessment and Plan (1) Delirium due to multiple etiologies Current visit: Yes Status: Acute Additional Plan: 1. Continue medical management to stabilize the patient 2. Recommend discontinuation of benzodiazepine and fentanyl or any opiates. 3. Reduce Risperdal dose to 1 mg at bedtime thank you for consultation Consult Discharge Plan - Plan Referrals: Tavares Johansen MD [Primary Care Provider] -
[2016-09-14] MEDS ORDERED: *HR* LORazepam 0.5 MG TABLET PO PRN (16:36)
[2016-09-14] MEDS: Insulin DETEMIR 100 UNIT/ML X5UNITS SQ SCH (20:16)
[2016-09-14] MEDS: lamoTRIgine 100 MG TABLET PO SCH (20:17)
[2016-09-14] MEDS: Melatonin 3 MG TABLET PO PRN (21:34)
[2016-09-15] MEDS: Ipratropium/Albuterol Neb 3 ML IH SCH ×3 (03:08→10:50)
[2016-09-15 04:23] LABS: Hemoglobin 8.3 g/dL (11.5-15.4); Immature Granulocytes % 0.6 % (0-4); Lymphocytes # 1.2 K/mcL (0.6-4.6); Lymphocytes % 24.6 %; Mean Corpuscular HGB Conc 31.9 g/dL (31.6-35.5); Mean Corpuscular Hemoglobin 26.8 pg (28.0-33.3); Mean Corpuscular Volume 83.9 fL (83.0-100.0); Mean Platelet Volume 9.2 fL (9.4-12.4); Monocytes # 0.4 K/mcL (0.0-1.3); Monocytes % 8.5 %; Neutrophils # 3.1 K/mcL (1.6-8.9); Platelet Count 158 K/mcL (140-400); Red Cell Distribution Width 14.2 % (11.5-14.5); Segmented Neutrophils % 66.3 %
[2016-09-15] MEDS: Azithromycin 500 MG in D5% in Water 250 ML IVPB SCH (08:37)
[2016-09-15] MEDS: Multivit/Ca/Min/Fe/FA 1 TAB TABLET PO SCH (08:38)
[2016-09-15] MEDS: Gabapentin 300 MG CAPSULE PO SCH (08:39)
[2016-09-15] MEDS: predniSONE 20 MG TABLET PO SCH (08:39)
[2016-09-15] MEDS: Loratadine 10 MG TABLET PO SCH (08:39)
[2016-09-15] MEDS: amLODIPine 5 MG TABLET PO SCH (08:40)
[2016-09-15] MEDS: Cholecalciferol (D-3) 1,000 UNIT TABLET PO SCH (08:40)
[2016-09-15] MEDS: risperiDONE 1 MG TABLET PO SCH (08:40)
[2016-09-15] MEDS: Fluticasone Propionate Nasal 50 MCG/SPRAY BOTTLE NS SCH (08:41)
[2016-09-15] MEDS: Insulin LISPRO 300 UNITS/3 ML VIAL SQ SCH ×2 (08:46→11:56)
[2016-09-15] MEDS: Azelastine 0.1% Nasal Spray 30 ML BOTTLE NS SCH (08:46)
--- NOTE | 2016-09-15 08:56 | Electrocardiograph Report ---
[facility] Test Date: 2016-09-11 Pat Name: Chrissie Jordan Department: 102 Room: 3A51 Gender: F [employer] Developer: : 1935 Requested By: Cruz John Order Number: [id number] Reading MD: Landon Magallon MD Measurements Intervals [place] Rate: 106 P: 68 FL: 172 QRS: -60 QRSD: 110 T: 40 QT: 317 QTc: 379 Interpretive Statements SINUS TACHYCARDIA LOW QRS VOLTAGE IN PRECORDIAL LEADS [QRS DEFLECTION < 1.0 mV IN CHEST LEADS] PATTERN CONSISTENT WITH PULMONARY DISEASE INCOMPLETE RIGHT BUNDLE BRANCH BLOCK [90+ ms QRS DURATION, TERMINAL R IN V1/V2, 40+ ms S IN I/aVL/V4/V5/V6] INFERIOR MYOCARDIAL INFARCTION [40+ ms Q WAVE AND/OR ST/T ABNORMALITY IN II/aVF], PROBABLY OLD Electronically Signed On 09-15-2016 8:55:05 EDT by Landon Magallon MD
[2016-09-15] MEDS ORDERED: Furosemide 40 MG/4 ML VIAL IVP SCH (09:00)
[2016-09-15 10:11] LABS: Calcium 8.5 mg/dL (8.6-10.8)
[2016-09-15 10:15] LABS: Potassium 3.6 mEq/L (3.5-4.5)
--- NOTE | 2016-09-15 10:27 | Internal Med Progress Note ---
Date of Encounter: 09/15/16 Time of Encounter: 10:26 - Assessment and plan (1) Acute respiratory failure with hypoxia Current Visit: Yes Status: Acute (2) Bronchitis Current Visit: Yes Status: Acute (3) Altered mental status Current Visit: Yes Status: Acute Qualifiers: Altered mental status type: disorientation Qualified Code(s): R41.0 - Disorientation, unspecified (4) Anemia Current Visit: Yes Status: Acute Qualifiers: Anemia type: unspecified type Qualified Code(s): D64.9 - Anemia, unspecified (5) COPD (chronic obstructive pulmonary disease) Current Visit: Yes Status: Chronic Qualifiers: COPD type: unspecified COPD Qualified Code(s): J44.9 - Chronic obstructive pulmonary disease, unspecified (6) DM (diabetes mellitus), type 2 with renal complications Current Visit: Yes Status: Chronic Qualifiers: Diabetes mellitus complication detail: with chronic kidney disease 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 insulin use status Chronic kidney disease stage: stage 3 (moderate) Qualified Code(s): E11.22 - Type 2 diabetes mellitus with diabetic chronic kidney disease; N18.3 - Chronic kidney disease, stage 3 (moderate) (7) Congestive heart failure Current Visit: Yes Status: Suspected Qualifiers: Congestive heart failure type: diastolic Congestive heart failure chronicity: acute Qualified Code(s): I50.31 - Acute diastolic (congestive) heart failure (8) CKD (chronic kidney disease) Current Visit: Yes Status: Acute Qualifiers: Chronic kidney disease stage: unspecified stage Qualified Code(s): N18.9 - Chronic kidney disease, unspecified (9) Atrial fibrillation Current Visit: Yes Status: Chronic Qualifiers: Atrial fibrillation type: chronic Qualified Code(s): I48.2 - Chronic atrial fibrillation (10) HTN (hypertension) Current Visit: Yes Status: Chronic Qualifiers: Hypertension type: essential hypertension Qualified Code(s): I10 - Essential (primary) hypertension - Subjective Interval history: Seen and evaluated at bedside 80 F admitted and being managed for AMS with psychosis, anemia from suspected GIB, hospital stay complicated by pulmonary edema Has no new complains Said to have had increasing O2 rerquirements overnight, at some point required 10L O2 At time of eval, saturating 96% on 4L Calm, not in distress No new complains but noted to be having cough with copious yellowish sputum, afebrile - Constitutional Vitals: Temp Pulse Resp BP Pulse Ox 98.3 F 96 16 145/67 98 09/15/16 08:11 09/15/16 08:11 09/15/16 08:11 09/15/16 08:11 09/15/16 08:11 General appearance: Present: cooperative, A&O X 1, mild distress, obese, answers questions appropriately Internal Medicine: Result - Labs CBC & Chem 7: 09/15/16 03:16 09/15/16 09:51 Labs: Short CBC 09/14/16 09/15/16 Range/Units 11:10 03:16 WBC 7.3 4.7 (4.3-11.1) K/mcL Hgb 8.4 L 8.3 L (11.5-15.4) g/dL Hct 27.2 L 26.0 L (35.3-44.9) % Plt Count 162 158 (140-400) K/mcL Neutrophils # 4.9 3.1 (1.6-8.9) K/mcL BMP 09/15/16 09:51 Sodium 139 Potassium 3.6 D Chloride 97 L Carbon Dioxide 34 H BUN 19 Creatinine 1.16 H Glucose 237 H Calcium 8.5 L - ABG Interpretation ABG results: PT/INR, D-dimer PT 12.8 Seconds (9.4-12.1) H 09/12/16 10:42 - VTE Documentation of Mechanical Device: Intermittent pneumatic compression device Consult Discharge Plan - Plan Referrals: Tavares Johansen MD [Primary Care Provider] -
[2016-09-15 11:10] VITALS: BP 133/64
--- NOTE | 2016-09-15 13:29 | Physician Discharge Referral ---
ExtendedCare Referral Info Transfer To: SNF Provider in Charge: Dr. Ricardo Provider in Charge after Transfer: PCP Institutional Level of Care: Skilled - Diagnosis (1) Acute respiratory failure with hypoxia Priority: Primary Status: Acute (2) Bronchitis Priority: Primary Status: Acute (3) Altered mental status Priority: Primary Status: Acute (4) Anemia Priority: Secondary Status: Chronic (5) COPD (chronic obstructive pulmonary disease) Priority: Secondary Status: Chronic (6) DM (diabetes mellitus), type 2 with renal complications Priority: Secondary Status: Chronic (7) Congestive heart failure Priority: Secondary Status: Suspected (8) CKD (chronic kidney disease) Priority: Secondary Status: Chronic (9) Atrial fibrillation Priority: Secondary Status: Chronic (10) HTN (hypertension) Priority: Secondary Status: Chronic Prognosis: Fair Aware of Diagnosis: Family Aware of Prognosis: Family - Transfer Medications Prescriptions: Azithromycin [Azithromycin 6-Tab Pack] 250 mg PO DAILY #3 tab fentaNYL [Fentanyl] 75 mcg TP Q72H #4 patch.td72 Furosemide [Lasix] 20 mg PO DAILY #30 tablet Gabapentin [Neurontin] 300 mg PO BID #14 capsule LORazepam [Ativan] 0.5 mg PO BID #14 tablet Home Medications: Atorvastatin Calcium [Lipitor] 20 mg PO HS #0 05/01/15 [History] Fluticasone/Salmeterol [Advair 500-50 Diskus] 1 puff IH BID #0 05/01/15 [ History] Ipratropium/Albuterol Neb [Duoneb] 3 ml IH QID #0 05/01/15 [History] Loperamide [Imodium] 2 mg PO Q4HR PRN #0 05/01/15 [History] Montelukast [Singulair] 10 mg PO HS #0 05/01/15 [History] Multivit/Ca/Min/Fe/FA [Thera M Plus] 1 tab PO DAILY #0 05/01/15 [History] Oxybutynin Chloride [Ditropan Xl] 15 mg PO DAILY #0 05/01/15 [History] Ranitidine HCl [Heartburn Relief] 150 mg PO BID #0 05/01/15 [History] Roflumilast [Daliresp] 500 mcg PO DAILY #0 05/01/15 [History] Sennosides [Senna] 17.2 mg PO HS PRN #0 05/01/15 [History] Tiotropium [Spiriva] 1 cap IH DAILY #0 05/01/15 [History] Vitamin E 400 unit PO DAILY #0 05/01/15 [History] amLODIPine [Norvasc] 5 mg PO DAILY #0 05/01/15 [History] Acetaminophen [Tylenol] 650 mg PO Q6H PRN 09/14/15 [History] Albuterol Sulfate [Proair Hfa] 2 puff IH Q4H PRN 09/14/15 [History] Bisacodyl [Dulcolax] 10 mg RC Q3D PRN 09/14/15 [History] Loratadine [Claritin] 10 mg PO DAILY 09/14/15 [History] Melatonin [Melatin] 3 mg PO HS PRN 09/14/15 [History] Polyethylene Glycol 3350 [MiraLAX] 17 gm PO DAILY 09/14/15 [History] Venlafaxine HCl 50 mg PO BID #30 tablet 09/17/15 [Rx] lamoTRIgine [Lamictal] 100 mg PO HS 30 Days 09/17/15 [Rx] Cholecalciferol (D-3) [Vitamin D] 2,000 unit PO DAILY 03/16/16 [History] Gabapentin [Neurontin] 300 mg PO TID 03/16/16 [History] LORazepam [Ativan] 0.5 mg PO BID 03/16/16 [History] Azelastine 0.1% Nasal [place] [Astelin] 2 spray NS BID 08/04/16 [History] Fluticasone Propionate Nasal [Flonase] 2 spray NS DAILY 08/04/16 [History] Omeprazole [PriLOSEC] 40 mg PO DAILY 08/04/16 [History] Phenyleph/Pramoxin/Glycr/W.pet [Preparation H Cream] 1 appl RC QID PRN 08/04/16 [History] Insulin Glargine [Lantus] 15 unit SQ HS #0 08/08/16 [Rx] Carvedilol [Coreg] 12.5 mg PO BIDWM #0 09/04/16 [Rx] Sennosides/Docusate Sodium [Senna Plus] 2 each PO BID PRN #0 tablet 09/04/16 [Rx ] Glucagon,Human Recombinant [Glucagen] 1 mg IJ AD PRN 09/11/16 [History] Rivaroxaban [Xarelto] 15 mg PO 1700 09/11/16 [History] risperiDONE [Risperidone] 0.5 mg PO 1700 09/11/16 [History] risperiDONE [Risperidone] 1 mg PO DAILY 09/11/16 [History] Azithromycin [Azithromycin 6-Tab Pack] 250 mg PO DAILY #3 tab 09/15/16 [Rx] Furosemide [Lasix] 20 mg PO DAILY #30 tablet 09/15/16 [Rx] Gabapentin [Neurontin] 300 mg PO BID #14 capsule 09/15/16 [Rx] LORazepam [Ativan] 0.5 mg PO BID #14 tablet 09/15/16 [Rx] fentaNYL [Fentanyl] 75 mcg TP Q72H #4 patch.td72 09/15/16 [Rx] Allergies/Adverse Reactions: Allergies ciprofloxacin [From Cipro] Allergy (Verified 09/11/16 15:56) Hives codeine Allergy (Verified 09/11/16 15:56) Hives diphenhydramine [From Benadryl] Allergy (Verified 09/11/16 15:56) Rash levofloxacin [From Levaquin] Allergy (Verified 09/11/16 15:56) Swelling of Lip/Tongue/Throat Sulfa (Sulfonamide Antibiotics) Allergy (Verified 09/11/16 15:56) Hives - Respiratory Orders Oxygen / L per min (3L /minute, target O2 sat 92%) Smoking Cessation: Smoking cessation has been advised. For more information, call the [place] Tobacco Quit Line at 9-671-SJHD-NOW. - Advance Directives Code Status: Full Code - Mobility Orders Other (Per PT) - Rehabiliation Orders Rehab Potential: Poor - Diet Orders Pureed (Diabetic, ADA,ENSURE HIGH PROTEIN TID, vanilla flavor.) CERTIFICATION: I certify that the transfer of the above named patient to an Extended Care Facility is necessary for the continuing treatment of the diagnosis listed. The above information is true and accurate reflection of patient's current condition. Confidential - Redisclosure prohibited without a patient's written consent.
--- NOTE | 2016-09-15 13:31 | Discharge Summary ---
Date of Encounter: 09/15/16 Time of Encounter: 13:29 - Discharge Diagnosis (1) Acute respiratory failure with hypoxia Priority: Primary Status: Acute (2) Bronchitis Priority: Primary Status: Acute (3) Altered mental status Priority: Primary Status: Chronic Qualifiers: Altered mental status type: disorientation Qualified Code(s): R41.0 - Disorientation, unspecified (4) Anemia Priority: Secondary Status: Chronic Qualifiers: Anemia type: unspecified type Qualified Code(s): D64.9 - Anemia, unspecified (5) COPD (chronic obstructive pulmonary disease) Priority: Secondary Status: Chronic Qualifiers: COPD type: unspecified COPD Qualified Code(s): J44.9 - Chronic obstructive pulmonary disease, unspecified (6) DM (diabetes mellitus), type 2 with renal complications Priority: Secondary Status: Chronic Qualifiers: Diabetes mellitus complication detail: with chronic kidney disease 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 Chronic kidney disease stage: stage 3 (moderate) Qualified Code(s): E11.22 - Type 2 diabetes mellitus with diabetic chronic kidney disease; N18.3 - Chronic kidney disease, stage 3 (moderate) (7) Congestive heart failure Priority: Secondary Status: Suspected Qualifiers: Congestive heart failure type: diastolic Congestive heart failure chronicity: acute Qualified Code(s): I50.31 - Acute diastolic (congestive) heart failure (8) CKD (chronic kidney disease) Priority: Secondary Status: Chronic Qualifiers: Chronic kidney disease stage: unspecified stage Qualified Code(s): N18.9 - Chronic kidney disease, unspecified (9) Atrial fibrillation Priority: Secondary Status: Chronic Qualifiers: Atrial fibrillation type: chronic Qualified Code(s): I48.2 - Chronic atrial fibrillation (10) HTN (hypertension) Priority: Secondary Status: Chronic Qualifiers: Hypertension type: essential hypertension Qualified Code(s): I10 - Essential (primary) hypertension - Discharge Medications Prescriptions: Azithromycin [Azithromycin 6-Tab Pack] 250 mg PO DAILY #3 tab fentaNYL [Fentanyl] 75 mcg TP Q72H #4 patch.td72 Furosemide [Lasix] 20 mg PO DAILY #30 tablet Gabapentin [Neurontin] 300 mg PO BID #14 capsule LORazepam [Ativan] 0.5 mg PO BID #14 tablet Home Medications: Atorvastatin Calcium [Lipitor] 20 mg PO HS #0 05/01/15 [History] Fluticasone/Salmeterol [Advair 500-50 Diskus] 1 puff IH BID #0 05/01/15 [ History] Ipratropium/Albuterol Neb [Duoneb] 3 ml IH QID #0 05/01/15 [History] Loperamide [Imodium] 2 mg PO Q4HR PRN #0 05/01/15 [History] Montelukast [Singulair] 10 mg PO HS #0 05/01/15 [History] Multivit/Ca/Min/Fe/FA [Thera M Plus] 1 tab PO DAILY #0 05/01/15 [History] Oxybutynin Chloride [Ditropan Xl] 15 mg PO DAILY #0 05/01/15 [History] Ranitidine HCl [Heartburn Relief] 150 mg PO BID #0 05/01/15 [History] Roflumilast [Daliresp] 500 mcg PO DAILY #0 05/01/15 [History] Sennosides [Senna] 17.2 mg PO HS PRN #0 05/01/15 [History] Tiotropium [Spiriva] 1 cap IH DAILY #0 05/01/15 [History] Vitamin E 400 unit PO DAILY #0 05/01/15 [History] amLODIPine [Norvasc] 5 mg PO DAILY #0 05/01/15 [History] Acetaminophen [Tylenol] 650 mg PO Q6H PRN 09/14/15 [History] Albuterol Sulfate [Proair Hfa] 2 puff IH Q4H PRN 09/14/15 [History] Bisacodyl [Dulcolax] 10 mg RC Q3D PRN 09/14/15 [History] Loratadine [Claritin] 10 mg PO DAILY 09/14/15 [History] Melatonin [Melatin] 3 mg PO HS PRN 09/14/15 [History] Polyethylene Glycol 3350 [MiraLAX] 17 gm PO DAILY 09/14/15 [History] Venlafaxine HCl 50 mg PO BID #30 tablet 09/17/15 [Rx] lamoTRIgine [Lamictal] 100 mg PO HS 30 Days 09/17/15 [Rx] Cholecalciferol (D-3) [Vitamin D] 2,000 unit PO DAILY 03/16/16 [History] Azelastine 0.1% Nasal [place] [Astelin] 2 spray NS BID 08/04/16 [History] Fluticasone Propionate Nasal [Flonase] 2 spray NS DAILY 08/04/16 [History] Omeprazole [PriLOSEC] 40 mg PO DAILY 08/04/16 [History] Phenyleph/Pramoxin/Glycr/W.pet [Preparation H Cream] 1 appl RC QID PRN 08/04/16 [History] Insulin Glargine [Lantus] 15 unit SQ HS #0 08/08/16 [Rx] Carvedilol [Coreg] 12.5 mg PO BIDWM #0 09/04/16 [Rx] Sennosides/Docusate Sodium [Senna Plus] 2 each PO BID PRN #0 tablet 09/04/16 [Rx ] Glucagon,Human Recombinant [Glucagen] 1 mg IJ AD PRN 09/11/16 [History] Rivaroxaban [Xarelto] 15 mg PO 1700 09/11/16 [History] risperiDONE [Risperidone] 0.5 mg PO 1700 09/11/16 [History] risperiDONE [Risperidone] 1 mg PO DAILY 09/11/16 [History] Azithromycin [Azithromycin 6-Tab Pack] 250 mg PO DAILY #3 tab 09/15/16 [Rx] Furosemide [Lasix] 20 mg PO DAILY #30 tablet 09/15/16 [Rx] Gabapentin [Neurontin] 300 mg PO BID #14 capsule 09/15/16 [Rx] LORazepam [Ativan] 0.5 mg PO BID #14 tablet 09/15/16 [Rx] fentaNYL [Fentanyl] 75 mcg TP Q72H #4 patch.td72 09/15/16 [Rx] predniSONE [PredniSONE] 40 mg PO DAILY #3 tablet 09/15/16 [Rx] Allergies/Adverse Reactions: Allergies ciprofloxacin [From Cipro] Allergy (Verified 09/11/16 15:56) Hives codeine Allergy (Verified 09/11/16 15:56) Hives diphenhydramine [From Benadryl] Allergy (Verified 09/11/16 15:56) Rash levofloxacin [From Levaquin] Allergy (Verified 09/11/16 15:56) Swelling of Lip/Tongue/Throat Sulfa (Sulfonamide Antibiotics) Allergy (Verified 09/11/16 15:56) Hives Procedures/tests Complete & Pending: Procedures Performed prior 72 hours Category Date Time Status EV echocardiogram Routine Y 09/14/16 08:16 Completed Date of admission: 09/11/16 13:48 Primary care physician: Tavares Johansen MD Consults: 09/11/16 14:03 Consult to Gastroenterology [CONS] Routine Consulting Provider: Paul Askew Reason for Consult: GI bleed Call Completed: No 09/11/16 15:11 PT [Consult to Physical Therapy] [CONS] Routine Comment: Evaluate, develop and implement POC Reason for Consult: from [facility], eval and treat 09/11/16 15:12 OT [Consult to Occupational Therapy] [CONS] Routine Comment: Evaluate, develop and implement POC Reason for Consult: from [facility], eval and treat 09/12/16 15:20 Consult to Speech Therapy [CONS] Stat Comment: Evaluate, develop and implement POC Reason for Consult: Pt choked on pills with water, possible aspiration. Call Completed: No 09/13/16 16:24 Consult to Invasive Line Access Team [CONS] Routine Reason for Consult: Limited vein access/veins keep blowing Line Type: EPIV PICC line indications: Limited vascular access 09/13/16 16:59 Consult to Psychiatry [CONS] Routine Consulting Provider: Roderick Askew Reason for Consult: Paranoida/ psychosis Call Completed: Yes 09/14/16 08:26 Consult to Invasive Line Access Team [CONS] Routine Reason for Consult: Cannot obtain peripheral Line Type: Midline Time Notified: 08:26 Call Completed: Yes Discharging clinician: All Figueroa Anticipated date of discharge: 09/15/16 - Patient Status Disposition: Transfer SNF Condition: Fair Functional capacity at discharge: bed bound Overall status at discharge: patient is progressing back to baseline - Discharge Instructions Follow Up With: Tavares Johansen MD [Primary Care Provider] - - Diet and Activity Activity: resume usual activities as tolerated, wear oxygen at all times Diet: other (PUREED DIET, ADA DIET, ENSURE HIGH PROTEIN TID) Interval History: See below Hospital course: 80 F with PMH of Atrial fibrillation on Xarelto, Depression and dementia with psychosis admitted multiple times for altered mental status due to psychosis. She has additional history of DM, HTN, DVT, PE, CKD, COPD She was admitted to this facility on 09/11 following a transfer from her SNF for altered mental status with patient worsened from her baseline. She had also presented with dry cough and rectal bleeding. Physical exam on admission was remarkable for disorientation. Patient was oriented to person only. Work up on admission revealed acute on chronic anemia with Hb down to 7.8 from discharge value of 10. Patient was started on blood transfusion but she developed a fever and blood transfusion was promptly stopped She received IVF due to her elevated Creatinine above baseline Her hospital stay has been complicated with psychosis and patient refusing and not co-operating with bowel prep for GI work up. Her Hb has remained stable throughout at ~8 with no further blood transfusions. She was hemodynamically stable She developed acute hypoxic respiratory failure needing increased oxygen 09/13/16 , CXR done 09/12/16 had revealed pulmonary edema and patient had been started on intravenous lasix. she had sputum productive of copious sputum, she was also wheezing diffusley. She was managed for CHF exacerbation from possible fluid overload and COPD exacerbation with acute bronchitis She was given IV lasix, prednisone and antibiotics She has made significant improvement, she remains dependent on 2-3 L of oxygen Patient did not have a colonoscopy as she could not cooperate ad refused bowel prep Her hb has been stable Today, she is calm, at her baseline mental status and able to communicate CBC and Chem today at baseline, she is hemodynamically stable She was reviewed by speech and oracle applications analyst and dietary reccommendations have been followed, continue same She is stable to be transferred back to SNF with O2, Azithromycin, Prednisone, resume her chronic medications - Time Spent with Patient Total time spent providing and/or coordinating discharge services: Greater than 30 minutes (45 minutes spent on patient evaluation, chart review, medication reconciliation and prescription, documentation and discussion of plan of care.) - Constitutional Vitals: Temp Pulse Resp BP Pulse Ox 98.1 F 88 16 133/64 94 09/15/16 11:09 09/15/16 11:09 09/15/16 11:09 09/15/16 11:09 09/15/16 11:09 VSS. BP-142/68, HR-93. O2 sat 97% on 4L O2 by NC Calm, not in any form of distress Alert, oriented to person and place today, , disoriented to time Moves all limbs spontaneously, speech is comprehensible but sometimes slurred. No facial paralysis Chest CTAB, no crackles or rhonchi Heart sounds S1, S2 only, no m/g/r Abdomen: Soft, not tender, moves with respiration, BS present in all quadrants Extremities well perfused, no pedal edema General appearance: Present: cooperative, A&O X 2, no acute distress, obese, answers questions appropriately - VTE Documentation of Mechanical Device: Intermittent pneumatic compression device
== END 2016-09-15 16:05 | DRG 377 ==
LOC: 3ANU 06:45 → EMEROO 06:45 → SUATTDRO 11:26 → 3ANU 11:56 → SUATTDRO 13:48
PROVIDERS: ADMIT Internal Medicine; ATTEND Internal Medicine